=== PATIENT | female | born 1935 | race Caucasian/White ===

== ENCOUNTER 2017-09-29 21:50 | Inpatient (IN) | payer MEDICARE, OTHER ==
[2017-09-29 22:18] LABS: Basophils # (A) 0.1 k/uL (0-0.2); Basophils % (A) 1 %; Eosinophils # (A) 0.3 k/uL (0-0.7); Eosinophils % (A) 3 %; HGB 9.9 gm/dL (11.4-16.0); Lymphocytes # (A) 1.7 k/uL (1.0-4.8); Lymphocytes % (A) 19 %; MCH 28.7 pg (25.0-35.0); MCHC 33.1 g/dL (31.0-37.0); MCV 86.8 fL (80.0-100.0); Mean Platelet Volume 6.9; Monocytes # (A) 0.7 k/uL (0-1.0); Monocytes % (A) 7 %; Neutrophils # (A) 6.1 k/uL (1.3-7.7); Neutrophils % (A) 67 %; Platelet Count 359 k/uL (150-450); RBC 3.46 m/uL (3.80-5.40); RDW 12.9 % (11.5-15.5)
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
[2017-09-29 22:31] LABS: Albumin 4.1 g/dL (3.5-5.0); Calcium 9.2 mg/dL (8.4-10.2); Total Bilirubin 0.4 mg/dL (0.2-1.3); Total Protein 7.1 g/dL (6.3-8.2)
[2017-09-29 22:35] LABS: Partial Thromboplastin Time 24.7 sec (22.0-30.0)
[2017-09-29 22:38] LABS: D-Dimer 0.6 mg/L FEU (<0.60)
[2017-09-29 22:40] LABS: Creatine Kinase 34 U/L (30-135)
--- NOTE | 2017-09-29 22:44 | XR ---
EXAMINATION TYPE: XR chest 1V portable DATE OF EXAM: 09/29/2017 COMPARISON: 05/13/2015 HISTORY: Syncope TECHNIQUE: Single frontal view of the chest is obtained. FINDINGS: There is general coarsening of pulmonary interstitial markings. The pulmonary vascularity is difficult to evaluate because of interstitial lung disease. I do not suspect heart failure. There is slight blunting of the costophrenic angles and suboptimal inspiration. There are chest leads. Hear t is top normal in size. IMPRESSION: Pulmonary fibrosis. Slightly reduced lung volumes. No change compared to last exam.
[2017-09-29 22:51] LABS: Creatine Kinase MB 1.2 ng/mL (0.0-2.4); Troponin I <0.012 ng/mL (0.000-0.034)
--- NOTE | 2017-09-29 23:29 | CT ---
EXAMINATION TYPE: CT brain les ortiz DATE OF EXAM: 09/29/2017 COMPARISON: None HISTORY: syncope fall. CT DLP: head 1012.70 body 495 mGycm Automated exposure control for dose reduction was used. TECHNIQUE: CT scan of the head and cervical spine are performed without contrast. FINDINGS: There is cerebral cortical atrophy. There is no mass effect nor midline shift. There is n o sign of intracranial hemorrhage. The calvarium is intact. Cervical vertebra have fairly normal alignment. There is narrowing of C5-6 disc space with spurring o f the endplates. There is a few millimeter retrolisthesis of C5 in relation to C6. There is hypertrop hic multilevel cervical facet arthropathy. The posterior elements are intact. The skull base appears intact. IMPRESSION: Spondylotic changes at C5-6. No fracture seen. Cerebral atrophy and chronic small vessel ischemia. No acute intracranial abnormality.
[2017-09-29] MEDS ORDERED: SODIUM CHLORIDE 0.9% 500 ML IV STA (23:51)
[2017-09-29] MEDS ORDERED: SODIUM CHLORIDE 0.9% 1,000 ML IV STA (23:51)
[2017-09-29] MEDS ORDERED: ACETAMINOPHEN TAB 325 MG TAB PO PRN (23:52)
[2017-09-29] MEDS ORDERED: NALOXONE 0.4 MG/ML 1 ML VIAL IV PRN (23:52)
[2017-09-29] MEDS ORDERED: DOCUSATE 100 MG CAP PO PRN (23:54)
[2017-09-29] MEDS ORDERED: HYDROcodone/APAP 5-325MG 1 EACH TAB PO PRN (23:54)
[2017-09-30] MEDS ORDERED: HYDROcodone/APAP 7.5-325MG 1 EACH TAB PO ONE (00:47)
--- NOTE | 2017-09-30 01:17 | XR ---
EXAMINATION TYPE: XR lumbar spine 2 or 3V DATE OF EXAM: 09/30/2017 COMPARISON: NONE HISTORY: Back pain TECHNIQUE: 3 views FINDINGS: There is 7 mm anterior subluxation of L4 in relation L5. There is narrowing of disc spaces from L3 to S1. There is no compression fracture. There is gliosis at L3-4 disc with vacuum disc. Sacr oiliac joints show osteosclerosis. Abdominal aorta is atheromatous. IMPRESSION: Degenerative first-degree L4-5 spondylolisthesis. No compression fracture. Spondylotic ch anges.
[2017-09-30 04:39] LABS: Basophils % (A) 1 %; Eosinophils # (A) 0.2 k/uL (0-0.7); Eosinophils % (A) 3 %; HCT 29.1 % (34.0-46.0); HGB 9.6 gm/dL (11.4-16.0); Lymphocytes # (A) 1.8 k/uL (1.0-4.8); Lymphocytes % (A) 23 %; MCH 28.8 pg (25.0-35.0); MCHC 32.9 g/dL (31.0-37.0); MCV 87.3 fL (80.0-100.0); Mean Platelet Volume 6.6; Monocytes # (A) 0.6 k/uL (0-1.0); Monocytes % (A) 7 %; Neutrophils # (A) 5.2 k/uL (1.3-7.7); Neutrophils % (A) 65 %; Platelet Count 281 k/uL (150-450); RBC 3.33 m/uL (3.80-5.40)
[2017-09-30 04:54] LABS: Calcium 8.9 mg/dL (8.4-10.2); Potassium 4.5 mmol/L (3.5-5.1)
[2017-09-30 05:20] LABS: Troponin I 0.024 ng/mL (0.000-0.034)
[2017-09-30] MEDS ORDERED: LOSARTAN 50 MG TAB PO SCH (09:00)
[2017-09-30] MEDS: THYROID, PORK 30 MG TAB PO SCH (10:19)
[2017-09-30 11:19] LABS: Creatine Kinase MB 1.1 ng/mL (0.0-2.4); Troponin I 0.026 ng/mL (0.000-0.034)
[2017-09-30 12:35] LABS: Glucose,Whole Blood 117 mg/dL (75-99)
[2017-09-30] MEDS: amLODIPine 10 MG TAB PO SCH (13:13)
[2017-09-30] MEDS: SODIUM CHLORIDE 0.9% 1,000 ML IV SCH (13:13)
[2017-09-30] MEDS ORDERED: NON-FORMULARY DRUG (Cranberry Fruit Extract [Cranberry] 500 MG) PO SCH (13:45)
[2017-09-30] MEDS: metFORMIN 500 MG TAB PO SCH ×2 (17:20→20:51)
[2017-09-30] MEDS: ENOXAPARIN 40 MG/0.4 ML SYRINGE SQ SCH (17:20)
[2017-09-30] MEDS: hydrALAZINE HCL 25 MG TAB PO SCH ×3 (17:20→20:51)
[2017-09-30] MEDS: ASCORBIC ACID 500 MG TAB PO SCH ×2 (17:21→20:51)
[2017-09-30 17:23] LABS: Glucose,Whole Blood 136 mg/dL (75-99)
[2017-09-30] MEDS: INSULIN ASPART 100 UNIT/ML 1 ML 10 ML VIAL SQ SCH ×2 (17:44→21:38)
[2017-09-30 18:46] LABS: Appearance,Urine Turbid (Clear); Bacteria,Urine Many /hpf; Bilirubin,Urine Negative (Negative); Blood,Urine Small (Negative); Color,Urine Yellow; Glucose,Urine (UA) Negative (Negative); Ketones,Urine Negative (Negative); Leukocyte Esterase,Urine Large (Negative); Nitrite,Urine Negative (Negative); Protein,Urine 2+ (Negative); RBC,Urine 41 /hpf (0-5); Specific Gravity,Urine 1.011 (1.001-1.035); Urobilinogen,Urine <2.0 mg/dL (<2.0); WBC,Urine >182 /hpf (0-5)
[2017-09-30 19:00] VITALS: BMI 36.1
[2017-09-30] MEDS ORDERED: MAGNESIUM HYDROXIDE 2,400 MG/10 ML CUP PO PRN (20:15)
[2017-09-30] MEDS ORDERED: LACTULOSE 20 GM/30 ML CUP PO PRN (20:15)
[2017-09-30] MEDS ORDERED: CALCIUM CARBONATE 500 MG CHEWABLE PO PRN (20:15)
[2017-09-30] MEDS ORDERED: LORazepam 0.5 MG TAB PO PRN (20:15)
[2017-09-30] MEDS ORDERED: ONDANSETRON 4 MG/2 ML VIAL IVP PRN (20:15)
[2017-09-30] MEDS: cefTRIAXone IN SWFI 1,000 MG/10 ML SYRINGE IVP SCH (20:50)
[2017-09-30] MEDS ORDERED: LORATADINE 10 MG TAB PO SCH (21:00)
[2017-09-30 21:08] LABS: Glucose,Whole Blood 141 mg/dL (75-99)
[2017-09-30] MEDS: MELATONIN 5 MG TABLET PO SCH (21:38)
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
[2017-10-01] MEDS: SODIUM CHLORIDE 0.9% 1,000 ML IV SCH ×3 (02:21→17:27)
[2017-10-01 07:39] LABS: Glucose,Whole Blood 108 mg/dL (75-99)
[2017-10-01 09:09] LABS: Potassium 4.5 mmol/L (3.5-5.1)
[2017-10-01] MEDS: ENOXAPARIN 40 MG/0.4 ML SYRINGE SQ SCH (09:13)
[2017-10-01] MEDS: hydrALAZINE HCL 25 MG TAB PO SCH ×2 (09:13→16:20)
[2017-10-01] MEDS: THYROID, PORK 30 MG TAB PO SCH (09:13)
[2017-10-01] MEDS: ASCORBIC ACID 500 MG TAB PO SCH ×2 (09:13→23:00)
[2017-10-01] MEDS: INSULIN ASPART 100 UNIT/ML 1 ML 10 ML VIAL SQ SCH ×4 (09:14→23:00)
[2017-10-01] MEDS: PANTOPRAZOLE 40 MG TABLET PO SCH (09:15)
[2017-10-01] MEDS: cefTRIAXone IN SWFI 1,000 MG/10 ML SYRINGE IVP SCH (09:16)
[2017-10-01] MEDS: metFORMIN 500 MG TAB PO SCH (09:16)
--- NOTE | 2017-10-01 10:51 | US ---
EXAMINATION TYPE: US kidneys/renal and bladder DATE OF EXAM: 10/01/2017 COMPARISON: NONE CLINICAL HISTORY: 81-year-old female renal failure. Multiple sonographic images of the kidneys and bladder are obtained. FINDINGS: EXAM MEASUREMENTS: Right Kidney: 11.1 x 4.5 x 4.5 cm Left Kidney: 10.0 x 5.9 x 5.0 cm No hydronephrosis on either side. Right Kidney: Inferior pole obscured by bowel gas, lateral cyst measuring 2.0 x 1.6 x 1.6cm Left Kidney: Inferior pole obscured by bowel gas, multiple cysts noted larges measuring 1.8 x 1.8 x 2 .2cm. A second smaller cyst centrally measures 1.2 cm. Bladder: possible mural based mass vs dense debris posterior bladder measuring 4.2 x 3.0 x 1.1cm Bilateral Jets seen: no IMPRESSION: 1. No hydronephrosis. 2. Scattered renal cysts measuring up to 2.0 cm on the right and 2.2 cm on the left. 3. A 4.2 x 3.0 x 1.1 cm mural based mass versus dense debris posteriorly in the bladder. Correlate wi th urine cytology and direct visualization if indicated.
[2017-10-01 12:14] LABS: Glucose,Whole Blood 114 mg/dL (75-99)
[2017-10-01] MEDS: IOPAMIDOL-300 CONTRAST 30 ML VIAL (ORAL USE) PO PRN ×2 (16:19→17:14)
[2017-10-01] MEDS: amLODIPine 10 MG TAB PO SCH (16:20)
[2017-10-01 17:10] LABS: Glucose,Whole Blood 122 mg/dL (75-99)
--- NOTE | 2017-10-01 17:30 | P.PN ---
Subjective 78-year-old pleasant female came in with syncope appears to be secondary to hypervolemia, has positive orthostatic vitals, hyponatremia hyponatremia improved with IV fluids creatinine improved as well. Patient apparently has unintentional weight loss because of which Dr. Ceballos ordered CT abdomen pelvis and chest these are pending until her creatinine improves which may happen tomorrow after that patient probably will be discharged tomorrow patient is feeling well wanted to go home. Patient is on multiple antidepressant medications, MARK inhibitor was discontinued, I'm decreasing the dose of amlodipine discontinued and hydralazine as her blood pressure remains the low normal side with positive orthostatic vitals continue with IV fluids discontinue metformin as patient will get a CAT scans with contrast. PT and OT evaluated the patient. Constitutional: Denied any fatigue denied any fever. Cardio vascular: denied any chest pain, palpitations Gastrointestinal denied any nausea vomiting Pulmonary: Denied any shortness of breath cough Neurologic denied any new focal deficits Objective - Vital Signs Vital signs: Vital Signs Temp 97.5 F L 10/01/17 14:10 Pulse 56 L 10/01/17 14:10 Resp 16 10/01/17 15:55 BP 122/60 10/01/17 14:10 Pulse Ox 94 L 10/01/17 14:10 Intake & Output 09/30/17 10/01/17 10/01/17 18:59 06:59 18:59 Intake Total 240 400 600 Output Total 200 Balance 40 400 600 Weight 83.915 kg Intake: Intake, IV Titration 400 Amount Sodium Chloride 0.9% 1, 400 000 ml @ 100 mls/hr IV . Q10H [facility] Rx#:[id number] Oral 240 600 Output: Urine 200 Other: Voiding Method Toilet Toilet Incontinent Incontinent # Voids 3 2 3 # Bowel Movements 0 - Exam PHYSICAL EXAMINATION: GENERAL: The patient is alert and oriented x3, not in any acute distress. Well developed, well nourished. HEENT: Pupils are round and equally reacting to light. EOMI. No scleral icterus. No conjunctival pallor. Normocephalic, atraumatic. No pharyngeal erythema. No thyromegaly. CARDIOVASCULAR: S1 and S2 present. No murmurs, rubs, or gallops. PULMONARY: Chest is clear to auscultation, no wheezing or crackles. ABDOMEN: Soft, nontender, nondistended, normoactive bowel sounds. No palpable organomegaly. MUSCULOSKELETAL: No joint swelling or deformity. EXTREMITIES: No cyanosis, clubbing, or pedal edema. NEUROLOGICAL: Gross neurological examination did not reveal any focal deficits. SKIN: No rashes. - Labs CBC & Chem 7: 09/30/17 04:26 10/01/17 08:20 Labs: Abnormal Lab Results - Last 24 Hours (Table) 09/30/17 09/30/17 09/30/17 Range/Units 17:09 18:00 20:53 BUN (7-17) mg/dL Creatinine (0.52-1.04) mg/dL Glucose (74-99) mg/dL POC Glucose (mg/dL) 136 H 141 H (75-99) mg/dL Urine Appearance Turbid H (Clear) Urine Protein 2+ H (Negative) Urine Blood Small H (Negative) Ur Leukocyte Esterase Large H (Negative) Urine RBC 41 H (0-5) /hpf Urine WBC >182 H (0-5) /hpf Urine WBC Clumps Many H (None) /hpf Urine Bacteria Many H (None) /hpf 10/01/17 10/01/17 10/01/17 Range/Units 07:22 08:20 12:10 BUN 22 H (7-17) mg/dL Creatinine 1.23 H (0.52-1.04) mg/dL Glucose 112 H (74-99) mg/dL POC Glucose (mg/dL) 108 H 114 H (75-99) mg/dL Urine Appearance (Clear) Urine Protein (Negative) Urine Blood (Negative) Ur Leukocyte Esterase (Negative) Urine RBC (0-5) /hpf Urine WBC (0-5) /hpf Urine WBC Clumps (None) /hpf Urine Bacteria (None) /hpf 10/01/17 Range/Units 17:09 BUN (7-17) mg/dL Creatinine (0.52-1.04) mg/dL Glucose (74-99) mg/dL POC Glucose (mg/dL) 122 H (75-99) mg/dL Urine Appearance (Clear) Urine Protein (Negative) Urine Blood (Negative) Ur Leukocyte Esterase (Negative) Urine RBC (0-5) /hpf Urine WBC (0-5) /hpf Urine WBC Clumps (None) /hpf Urine Bacteria (None) /hpf Assessment and Plan Plan: -Syncope: Secondary to intravascular depletion telemetry did not show any significant abnormality. Patient is mildly sinus bradycardic atenolol was discontinued which may have contributed to her syncope as well as renal failure improved hyponatremia improved will obtain echocardiogram to complete the workup. -Acute renal failure: Prerenal azotemia with the possibility of nonoliguric acute purulent necrosis secondary to hypotension. Improving renal function at this time continue with IV fluids. MARK inhibitor was discontinued., Cut down on other antidepressants medications. -Unintentional weight loss further management as mentioned above -Type 2 diabetes mellitus because of her borderline kidney function and anticipated CAT scans tomorrow metformin will be discontinued patient will be on sliding scale insulin -Mild sinus bradycardia secondary to atenolol which was discontinued -Hypothyroidism current TSH is within normal limits continue with the home dose of levothyroxine -Urinary stress incontinence -Depression -Mild senile dementia -Possibility of urinary tract infection for which patient is on Rocephin awaiting urine cultures -Deconditioning secondary to age and OT evaluation as mentioned above I' m unsure whether patient lives at [facility] patient denies living at a at that place and patient appears to be independent with ADLs
--- NOTE | 2017-10-01 18:39 | CT ---
EXAMINATION TYPE: CT ChestAbdPelvis w con DATE OF EXAM: 10/01/2017 COMPARISON: None HISTORY: c/o nausea, decreased appetite with [address] DLP: 1564 mGycm Automated exposure control for dose reduction was used. CONTRAST: CT scan of the chest, abdomen and pelvis is performed with Oral Contrast and with IV Contrast, patien t injected with 80 mL of Isovue 300. FINDINGS: The heart is enlarged. There is no pericardial effusion. There is no pleural effusion. There is patch y interstitial density at the lung bases probably due to fibrosis. There is dilated biliary tree. The common bile duct measures 1.4 cm. There is cholecystectomy. Intrahepatic bile ducts are dilated. Spleen appears normal. There is some bulkiness of the body of the pancreas compared to the remainder of the pancreas. Pancreatic head appears normal. There is no adrenal mass. Kidneys show satisfactory contrast opacification. There are multiple bilate ral renal cortical cysts that measure up to 2 cm. There is no hydronephrosis. Ureters are not dilated . There is no retroperitoneal adenopathy. Abdominal aorta is atheromatous. Bladder distends smoothly. I see no intestinal wall thickening. There are no dilated loops. Uterus is anteverted with some calc ification consistent with small fibroids. There is no free fluid in the pelvis. There is a degenerati ve first-degree L4-5 spondylolisthesis. There is no compression fracture. IMPRESSION: Multiple renal cysts. No renal obstruction. Dilated biliary tree. No obstructing lesion identified. Possible 2 cm mass in the body of the pancreas. Follow-up is recommended. MRCP would be useful for fu rther evaluation to evaluate the bile ducts and the pancreas. Fibrotic changes and subsegmental atelectasis at the lung bases. Cardiomegaly. No evidence of a pulmo nary mass.
[2017-10-01 22:32] LABS: Glucose,Whole Blood 117 mg/dL (75-99)
[2017-10-01] MEDS: MELATONIN 5 MG TABLET PO SCH (23:01)
[2017-10-02] MEDS: SODIUM CHLORIDE 0.9% 1,000 ML IV SCH ×2 (05:55→12:52)
[2017-10-02 07:54] LABS: Glucose,Whole Blood 126 mg/dL (75-99)
[2017-10-02] MEDS: cefTRIAXone IN SWFI 1,000 MG/10 ML SYRINGE IVP SCH (08:23)
[2017-10-02] MEDS: INSULIN ASPART 100 UNIT/ML 1 ML 10 ML VIAL SQ SCH ×3 (08:24→17:03)
[2017-10-02] MEDS: PANTOPRAZOLE 40 MG TABLET PO SCH (08:58)
[2017-10-02] MEDS ORDERED: ENOXAPARIN 30 MG/0.3 ML SYRINGE SQ SCH (09:00)
[2017-10-02] MEDS: THYROID, PORK 30 MG TAB PO SCH (09:03)
[2017-10-02] MEDS: ASCORBIC ACID 500 MG TAB PO SCH (09:44)
[2017-10-02 09:50] LABS: Calcium 9.1 mg/dL (8.4-10.2); Potassium 4.7 mmol/L (3.5-5.1)
--- NOTE | 2017-10-02 10:47 | ECHOF ---
Referral Reason:syncope MEASUREMENTS -------- HEIGHT: 152.4 cm WEIGHT: 83.9 kg BP: 126/60 RVIDd: 3.0 cm (< 3.3) IVSd: 1.2 cm (0.6 - 1.1) LVIDd: 4.9 cm (3.9 - 5.3) LVPWd: 1.3 cm (0.6 - 1.1) IVSs: 1.6 cm LVIDs: 3.5 cm LVPWs: 1.7 cm LA Diam: 4.6 cm (2.7 - 3.8) LAESV Index (A-L): 40.72 ml/m Ao Diam: 2.9 cm (2.0 - 3.7) AV Cusp: 1.4 cm (1.5 - 2.6) LA Diam: 5.0 cm (2.7 - 3.8) MV EXCURSION: 15.488 mm (> 18.000) MV EF SLOPE: 73 mm/s (70 - 150) EPSS: 0.5 cm MV E Johnnie: 1.27 m/s MV DecT: 204 ms MV A Johnnie: 1.06 m/s MV E/A Ratio: 1.21 AV maxP.38 mmHg AV meanP.71 mmHg RAP: 5.00 mmHg RVSP: 51.92 mmHg FINDINGS -------- Sinus rhythm. This was a technically good study. The left ventricular size is normal. There is mild concentric left ventricular hypertrophy. Overa ll left ventricular systolic function is low-normal with, an EF between 50 - 55 %. The right ventricle is normal in size. The left atrium is moderately dilated. LA is severely dilated >40 ml/m2 The right atrial size is normal. There is moderate aortic stenosis present. Peak/mean gradient across the Aortic Valve is 48.38mmHg / 22.71mmHg. Mild mitral annular calcification present. Mild mitral regurgitation is present. Mild tricuspid regurgitation present. There is moderate pulmonary hypertension. The right ventric ular systolic pressure, as measured by Doppler, is 51.92mmHg. There is no pulmonic regurgitation present. The aortic root size is normal. There is no pericardial effusion. CONCLUSIONS -------- 1. The left ventricular size is normal. 2. There is mild concentric left ventricular hypertrophy. 3. Overall left ventricular systolic function is low-normal with, an EF between 50 - 55 %. 4. The right ventricle is normal in size. 5. The left atrium is moderately dilated. 6. LA is severely dilated >40 ml/m2 7. The right atrial size is normal. 8. There is moderate aortic stenosis present. 9. Peak/mean gradient across the Aortic Valve is 48.38mmHg / 22.71mmHg. 10. Mild mitral annular calcification present. 11. Mild mitral regurgitation is present. 12. Mild tricuspid regurgitation present. 13. There is moderate pulmonary hypertension. 14. The right ventricular systolic pressure, as measured by Doppler, is 51.92mmHg. 15. There is no pulmonic regurgitation present. 16. The aortic root size is normal. 17. There is no pericardial effusion. GASOLINE SERVICE ATTENDANT: Janee Malik RDCS
[2017-10-02 12:27] LABS: Glucose,Whole Blood 156 mg/dL (75-99)
[2017-10-02 16:19] VITALS: BP 143/58; PULSE 61; TEMP 97.2
[2017-10-02 16:25] VITALS: RESP 16
[2017-10-02 16:56] LABS: Glucose,Whole Blood 124 mg/dL (75-99)
[2017-10-02] MEDS ORDERED: amLODIPine 5 MG TAB PO SCH (17:00)
--- NOTE | 2017-10-02 17:15 | MR ---
MRCP and MR pancreas HISTORY: pancreatic mass, abnormal CT Multiplanar multisequence and postcontrast imaging obtained through the pancreas. Multiplanar multise quence imaging through the biliary system, three-dimensional reconstructions performed on an [employer] workstation. Correlation CT chest abdomen pelvis dated 10/01/2017 Dilated intra and extrahepatic biliary ducts noted to the level of the pancreatic head. Pancreatic du ct is also dilated. Multiple cystic foci are present along the pancreas especially the body and tail and also the head which may be communicating with a dilated pancreatic duct. No filling defect eviden t to suggest retained stone. Patient is post cholecystectomy. There is some soft tissue present at the level of the pancreatic head some possible local mass effect on the duodenum as noted on CT. The level of the ampulla appears somewhat prominently seen better on the CT. Calcification at the level of the head of pancreas seen on CT not seen on MRI. Motion is present on the exam especially on the postcontrast images. Cystic foci associated with the kidneys. The adrenal glands, spleen are within normal limits. No retr operitoneal adenopathy evident. Aorta shows normal caliber. Possible renal vein collar present. IMPRESSION: Ampullary region appears somewhat prominent, there is suggestion of prominent soft tissue as described at the level of pancreatic head. Findings suggest biliary obstruction. Appearance of th e pancreas could be indicative of intraductal papillary mucinous neoplasm possibly chronic pancreatit is. Limitations as described. Additional findings above.
--- NOTE | 2017-10-03 19:10 | P.DS ---
Providers Date of admission: 09/29/17 23:56 Expected date of discharge: 10/03/17 Attending physician: Isidro Pizarro Primary care physician: Bharath [facility] Hospital Course: Final Diagnoses: -Syncope: Secondary to intravascular depletion telemetry did not show any significant abnormality. Patient is mildly sinus bradycardic atenolol was discontinued which may have contributed to her syncope as well as renal failure improved hyponatremia improved. Echo reported low normal LV function EF 50-55% , severely dilated LA ,moderate aortic stenosis, moderate pulmonary hypertension -Acute renal failure: Prerenal azotemia with the possibility of nonoliguric acute purulent necrosis secondary to hypotension. Improving. MARK inhibitor was discontinued., Cut down on other antidepressants medications. -Unintentional weight loss -Type 2 diabetes mellitus -Mild sinus bradycardia secondary to atenolol, discontinued -Hypothyroidism current TSH is within normal limits -Urinary stress incontinence -Depression -Mild senile dementia -Possible acute urinary tract infection -Deconditioning secondary to age . -Possible bladder mass, further workup outpatient to be arranged by PCP -Mass seen on MRI of Pancreas could not be ruled out as malignancy. Patient needs to follow up as an outpatient with Dr. Hector Clark in one week for a biopsy. Hospital course:78-year-old pleasant female came in with syncope appears to be secondary to hypervolemia, has positive orthostatic vitals, hyponatremia hyponatremia improved with IV fluids creatinine improved as well. Patient apparently has unintentional weight loss because of which Dr. Ceballos ordered CT abdomen pelvis and chest these are pending until her creatinine improves which may happen tomorrow after that patient probably will be discharged tomorrow patient is feeling well wanted to go home. Patient is on multiple antidepressant medications, MARK inhibitor was discontinued, I'm decreasing the dose of amlodipine discontinued and hydralazine as her blood pressure remains the low normal side with positive orthostatic vitals continue with IV fluids discontinue metformin as patient will get a CAT scans with contrast. PT and OT evaluated the patient. Constitutional: Denied any fatigue denied any fever. Cardio vascular: denied any chest pain, palpitations Gastrointestinal denied any nausea vomiting Pulmonary: Denied any shortness of breath cough Neurologic denied any new focal deficits CT of abdomen and pelvis reporting multiple renal cysts, no renal obstruction, dilated biliary tree with no obstructing lesion, possible 2 cm mass in the body of the pancreas, no pulmonary mass. Renal ultrasound reporting no hydronephrosis, 4.2 x 3.0 x 1.1 mass versus dense debris in the bladder. MRCP and MR pancreas reporting mass of pancreatic head, possible biliary obstruction , possible intraductal papillary neoplasm, possibly chronic pancreatitis. Dilated pancreatic duct with multiple cystic foci along the pancreas body, head & tail. Possible local mass effect on the duodenum Patient is being discharged home in a stable condition with guarded prognosis. Patient will require EUS,BX, follow-up with Dr. Hector Clark as well as outpatient urology. EXAMINATION: GENERAL: The patient is alert and oriented x3, not in any acute distress. CARDIOVASCULAR: S1 and S2 present. No murmurs, rubs, or gallops. PULMONARY: Chest is clear to auscultation, no wheezing or crackles. ABDOMEN: Soft, nontender, nondistended, normoactive bowel sounds. No palpable organomegaly. NEUROLOGICAL: Gross neurological examination did not reveal any focal deficits. The impression and plan of care has been dictated as directed. : I performed a history and examination of this patient, discussed the same with the dictator. I agree with the dictator's note ,documented as a scribe. Any additional findings or plans will be noted. Time taken: 35 minutes Patient Condition at Discharge: Stable Plan - Discharge Summary New Discharge Prescriptions: New amLODIPine [Norvasc] 5 mg PO DAILY@1700 #30 tab Cefuroxime Axetil [Ceftin] 500 mg PO BID #8 tab Continue Loratadine [Claritin] 10 mg PO HS [place]-3 Acid Ethyl Esters [Lovaza] 2 gm PO BID Cranberry Fruit Extract [Cranberry] 500 mg PO BID Acai Post Extract [Acai] 500 mg PO DAILY Diabetic Nerve Rejuvination 1 tab PO DAILY Ascorbic Acid [Vitamin C] 1,000 mg PO BID Melatonin 5 mg PO HS Blood Sugar Advantage 1 tab PO DAILY Docusate [Colace] 100 mg PO DAILY PRN PRN Reason: Constipation hydrALAZINE HCL [Apresoline] 25 mg PO TID V-C Forte 1 cap PO DAILY Omeprazole [PriLOSEC] 40 mg PO DAILY Stock Shipper Thyroid 90 mg PO DAILY Discontinued Atenolol 25 mg PO DAILY Losartan Potassium [Cozaar] 100 mg PO DAILY Discharge Medication List Acai Post Extract [Acai] 500 mg PO DAILY 05/11/15 [History] Ascorbic Acid [Vitamin C] 1,000 mg PO BID 05/11/15 [History] Blood Sugar Advantage 1 tab PO DAILY 05/11/15 [History] Cranberry Fruit Extract [Cranberry] 500 mg PO BID 05/11/15 [History] Diabetic Nerve Rejuvination 1 tab PO DAILY 05/11/15 [History] Loratadine [Claritin] 10 mg PO HS 05/11/15 [History] Melatonin 5 mg PO HS 05/11/15 [History] [place]-3 Acid Ethyl Esters [Lovaza] 2 gm PO BID 05/11/15 [History] Docusate [Colace] 100 mg PO DAILY PRN 06/16/15 [History] Stock Shipper Thyroid 90 mg PO DAILY 09/30/17 [History] Omeprazole [PriLOSEC] 40 mg PO DAILY 09/30/17 [History] V-C Forte 1 cap PO DAILY 09/30/17 [History] hydrALAZINE HCL [Apresoline] 25 mg PO TID 09/30/17 [History] Cefuroxime Axetil [Ceftin] 500 mg PO BID #8 tab 10/02/17 [Rx] amLODIPine [Norvasc] 5 mg PO DAILY@1700 #30 tab 10/02/17 [Rx] Follow up Appointment(s)/Referral(s): Mylene Clark MD [STAFF PHYSICIAN] - 1 Week Bharath Manzo MD [Primary Care Provider] - 3 Days Azeem Calderon MD [STAFF PHYSICIAN] - 1 Week Patient Instructions/Handouts: Urinary Tract Infection in Women (DC), Syncope ( DC), Bradycardia (DC) Activity/Diet/Wound Care/Special Instructions: Mass seen on MRI of Pancreas could not be ruled out as malignancy. Patient needs to follow up as an outpatient with Dr. Hector Clark in one week for a biopsy. Please call for an Appointment Diet: Consistent carb Stop Atenolol Activity: Limited until follow up Discharge Disposition: HOME SELF-CARE
== END 2017-10-02 19:23 | disposition home or self-care (01) | DRG 683 ==
LOC: EC 21:50 → 6SEL 23:56 → 4MS4W 09-30 10:25
PROVIDERS: ADMIT Hospitalist; ATTEND Hospitalist
DX: N17.9 Acute kidney failure, unspecified (principal); E87.1 Hypo-osmolality and hyponatremia; E03.9 Hypothyroidism, unspecified; E11.42 Type 2 diabetes mellitus with diabetic polyneuropathy; F32.9 Major depressive disorder, single episode, unspecified; I10 Essential (primary) hypertension; J42 Unspecified chronic bronchitis; N30.90 Cystitis, unspecified without hematuria; N39.3 Stress incontinence (female) (male); W19.XXXA Unspecified fall, initial encounter; Z79.84 Long term (current) use of oral hypoglycemic drugs; Z79.899 Other long term (current) drug therapy; Z82.49 Family history of ischemic heart disease and other diseases of the circulatory system; Z87.891 Personal history of nicotine dependence; Z88.2 Allergy status to sulfonamides; Z90.49 Acquired absence of other specified parts of digestive tract; E66.9 Obesity, unspecified; Z68.36 Body mass index [BMI] 36.0-36.9, adult; R00.1 Bradycardia, unspecified; T44.7X5A Adverse effect of beta-adrenoreceptor antagonists, initial encounter; Z79.890 Hormone replacement therapy; F03.90 Unspecified dementia, unspecified severity, without behavioral disturbance, psychotic disturbance, mood disturbance, and anxiety; R63.4 Abnormal weight loss
CPT/HCPCS: 36415; 70450; 71045; 71260; 72100; 72125; 74177; 74183; 76770; 80048; 80053; 81001; 82550; 82553; 83036; 83930; 84443; 84484; 85025; 85379; 85610; 85730; 86301; 93005; 93306; 96360; 96361; 99285

== ENCOUNTER 2017-10-04 22:34 | Emergency (ER) | payer MEDICARE, OTHER ==
[2017-10-05 05:23] LABS: Partial Thromboplastin Time 21.5 sec (22.0-30.0); Prothrombin Time 9.8 sec (9.0-12.0)
[2017-10-05 05:24] LABS: Basophils # (A) 0.1 k/uL (0-0.2); Basophils % (A) 1 %; Eosinophils # (A) 0.3 k/uL (0-0.7); Eosinophils % (A) 4 %; HCT 29.7 % (34.0-46.0); HGB 9.6 gm/dL (11.4-16.0); Lymphocytes # (A) 1.6 k/uL (1.0-4.8); Lymphocytes % (A) 17 %; MCH 28.7 pg (25.0-35.0); MCHC 32.4 g/dL (31.0-37.0); MCV 88.5 fL (80.0-100.0); Mean Platelet Volume 7.5; Monocytes # (A) 0.6 k/uL (0-1.0); Monocytes % (A) 6 %; Neutrophils # (A) 6.6 k/uL (1.3-7.7); Neutrophils % (A) 71 %; Platelet Count 342 k/uL (150-450); RBC 3.35 m/uL (3.80-5.40); RDW 13.2 % (11.5-15.5); WBC 9.3 k/uL (3.8-10.6)
[2017-10-05 05:58] LABS: Troponin I 0.029 ng/mL (0.000-0.034)
--- NOTE | 2017-10-05 11:12 | XR ---
EXAMINATION TYPE: XR chest 2V DATE OF EXAM: 10/05/2017 COMPARISON: NONE HISTORY: Shortness of breath TECHNIQUE: Frontal and lateral views of the chest are obtained. FINDINGS: Scattered senescent parenchymal changes noted. Hyperinflation compatible with COPD. No evidence for infiltrate. No evidence for atelectasis. Heart size is stable. Mild pulmonary venous congestion without overt failure. Mediastinal structures are stable and grossly unremarkable. No evidence for hilar prominence. Degenerative changes dorsal spine. IMPRESSION: 1. No evidence for acute pulmonary disease.
== END 2017-10-05 03:54 | disposition home or self-care (01) ==
LOC: EC 22:34
DX: R07.9 Chest pain, unspecified (principal); R55 Syncope and collapse; E03.9 Hypothyroidism, unspecified; E11.9 Type 2 diabetes mellitus without complications; I10 Essential (primary) hypertension; D64.9 Anemia, unspecified; Z87.891 Personal history of nicotine dependence; Z79.899 Other long term (current) drug therapy; Z88.2 Allergy status to sulfonamides
CPT/HCPCS: 36415; 71046; 82550; 82553; 83735; 84484; 85025; 85610; 85730; 99284

== ENCOUNTER 2017-10-06 21:02 | Inpatient (IN) | payer MEDICARE, OTHER ==
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
[2017-10-06 21:42] LABS: Basophils % (A) 0 %; Eosinophils # (A) 0.3 k/uL (0-0.7); Eosinophils % (A) 3 %; HCT 24.8 % (34.0-46.0); HGB 8.2 gm/dL (11.4-16.0); Lymphocytes # (A) 1.4 k/uL (1.0-4.8); Lymphocytes % (A) 15 %; MCH 28.9 pg (25.0-35.0); MCHC 32.8 g/dL (31.0-37.0); MCV 87.9 fL (80.0-100.0); Mean Platelet Volume 7.4; Monocytes # (A) 0.7 k/uL (0-1.0); Monocytes % (A) 7 %; Neutrophils # (A) 6.8 k/uL (1.3-7.7); Neutrophils % (A) 72 %; Platelet Count 337 k/uL (150-450); RBC 2.82 m/uL (3.80-5.40); RDW 13.2 % (11.5-15.5); WBC 9.5 k/uL (3.8-10.6)
[2017-10-06 21:50] LABS: Albumin 3.5 g/dL (3.5-5.0); Calcium 8.7 mg/dL (8.4-10.2); INR 1.1 (<1.2); Partial Thromboplastin Time 25.7 sec (22.0-30.0); Potassium 4.9 mmol/L (3.5-5.1); Prothrombin Time 10.3 sec (9.0-12.0); Total Bilirubin 0.2 mg/dL (0.2-1.3); Total Protein 6.3 g/dL (6.3-8.2)
[2017-10-06 22:02] LABS: Appearance,Urine Cloudy (Clear); Bilirubin,Urine Negative (Negative); Blood,Urine Trace (Negative); Color,Urine Yellow; Glucose,Urine (UA) Negative (Negative); Ketones,Urine Negative (Negative); Leukocyte Esterase,Urine Large (Negative); Mucus,Urine Rare /hpf; Nitrite,Urine Negative (Negative); Protein,Urine 2+ (Negative); RBC,Urine 3 /hpf (0-5); Specific Gravity,Urine 1.006 (1.001-1.035); Urobilinogen,Urine <2.0 mg/dL (<2.0); WBC,Urine 87 /hpf (0-5)
--- NOTE | 2017-10-06 22:08 | XR ---
EXAMINATION TYPE: XR chest 2V DATE OF EXAM: 10/06/2017 COMPARISON: 10/04/2017 HISTORY: Hypertension cough TECHNIQUE: Frontal and lateral views of the chest are obtained. FINDINGS: There is coarse pulmonary interstitial density. Pulmonary vascularity is difficult to eval uate because of the lung disease. Thoracic aorta is atheromatous. There are chest leads. There is no definite pleural effusion. Bony thorax is intact. IMPRESSION: Pulmonary interstitial fibrosis. Inspiration is decreased compared to recent exam. No ob vious heart failure.
[2017-10-06 22:15] LABS: Troponin I 0.032 ng/mL (0.000-0.034)
[2017-10-06] MEDS ORDERED: NALOXONE 0.4 MG/ML 1 ML VIAL IV PRN (23:41)
[2017-10-07] MEDS: ACETAMINOPHEN TAB 325 MG TAB PO PRN ×2 (01:24→18:45)
[2017-10-07] MEDS: MELATONIN 5 MG TABLET PO SCH ×2 (02:11→20:59)
[2017-10-07 07:40] LABS: Glucose,Whole Blood 122 mg/dL (75-99)
[2017-10-07 07:42] LABS: Basophils % (A) 0 %; Eosinophils # (A) 0.4 k/uL (0-0.7); Eosinophils % (A) 5 %; HCT 25.4 % (34.0-46.0); HGB 8.1 gm/dL (11.4-16.0); Lymphocytes # (A) 1.5 k/uL (1.0-4.8); Lymphocytes % (A) 18 %; MCH 28.2 pg (25.0-35.0); MCHC 31.7 g/dL (31.0-37.0); Mean Platelet Volume 7.3; Monocytes # (A) 0.6 k/uL (0-1.0); Monocytes % (A) 8 %; Neutrophils # (A) 5.4 k/uL (1.3-7.7); Neutrophils % (A) 67 %; Platelet Count 337 k/uL (150-450); RBC 2.86 m/uL (3.80-5.40); RDW 13.2 % (11.5-15.5); WBC 8.1 k/uL (3.8-10.6)
[2017-10-07 08:03] LABS: Calcium 8.5 mg/dL (8.4-10.2); Potassium 4.6 mmol/L (3.5-5.1)
[2017-10-07] MEDS: hydrALAZINE HCL 25 MG TAB PO SCH ×3 (10:06→20:59)
[2017-10-07] MEDS: THYROID, PORK 30 MG TAB PO SCH (10:06)
[2017-10-07] MEDS: PANTOPRAZOLE 40 MG TABLET PO SCH (10:06)
[2017-10-07 11:55] LABS: Glucose,Whole Blood 165 mg/dL (75-99)
[2017-10-07] MEDS ORDERED: SODIUM CHLORIDE 0.9% 1,000 ML IV SCH ×3 (15:00→17:30)
--- NOTE | 2017-10-07 15:10 | CONS ---
CONSULTATION Mrs. Perez is an 81-year-old female who is seen with her son who presented with a syncopal episode. The patient was in the hospital recently with urinary tract infection and a syncopal episode. At that time, she had an echocardiogram that showed revealing a preserved ventricular size and systolic function. She was diagnosed with urine tract infection. Today she felt quite dizzy and presyncopal, was talking to the visiting physician on the phone when she felt almost as she was passing-out that lasted very briefly. After admission to the hospital on the monitor she had sinus mechanism with multiple long pauses. The patient denies any other cardiac history. She has occasional abdominal discomfort. She has occasional palpitation. She has some peripheral edema. No clear PND nor orthopnea. Her activity level is limited. She has no prior documented history of bradycardia or arrhythmia. Her coronary risk factors are remarkable for hypertension. She is nonsmoker. No hyperlipidemia. MEDICATION: Her medications include hydralazine 25 mg 3 times a day, amlodipine 5 mg daily, omeprazole, , cranberry. REVIEW OF SYSTEMS: RESPIRATORY SYSTEM: She has some cough. No recent wheezing. GI SYSTEM: No recent GI bleeding. No peptic ulcer disease. SYSTEM: She has urinary tract infection. She is incontinent. NERVOUS SYSTEM: No stroke or seizure. PHYSICAL EXAMINATION: She is an 81-year-old female, alert, in no apparent distress. Blood pressure 131/60 with a heart rate in the 60s. HEAD: Normocephalic. EYES: Sclerae anicteric. NECK: Good upstroke. No bruit. No jugular venous distention. LUNGS: Clear to auscultation. HEART: Regular rate and rhythm. S1, S2. No S3 with systolic murmur. No diastolic murmur. No rub. ABDOMEN: Soft, nontender. EXTREMITIES: No edema. LAB DATA: BUN and creatinine of 23 and 1.83. Her hemoglobin is 8.1 and she was running, the high she had was 10.7 and that was in June of 2015. Her potassium is 4.6. Her troponin 0.032. Her EKG revealed a sinus mechanism, normal axis, first-degree AV block, no acute changes. IMPRESSION: 1. Syncopal episode related to sinus pauses, symptomatic. 2. Hypertension. 3. Urinary tract infection. 4. Mild to moderate aortic stenosis by echocardiography with preserved systolic function. 5. Anemia of unclear etiology. 6. Chronic kidney disease noted during previous admission. RECOMMENDATION: From the cardiac standpoint I would recommend to check her thyroid function test. I recommend to proceed with a permanent pacemaker implantation. The rationale behind the procedure as well as the risks were discussed with the patient and her son. The procedure will be tentatively performed tomorrow. We will repeat her CBC to make sure there are no changes and depending on her progress further recommendation will be made. At this time, I would not put a temporary pacemaker since she is asymptomatic unless there is a change in her status. MMODL / IJN: [id number] /
[2017-10-07] MEDS ORDERED: amLODIPine 5 MG TAB PO SCH (17:00)
[2017-10-07 17:18] LABS: Glucose,Whole Blood 128 mg/dL (75-99)
[2017-10-07] MEDS: SODIUM CHLORIDE 0.9% 1,000 ML IV SCH ×2 (17:24→18:00)
[2017-10-07] MEDS: cefTRIAXone IN SWFI 1,000 MG/10 ML SYRINGE IVP SCH (17:30)
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
[2017-10-07] MEDS: LORATADINE 10 MG TAB PO SCH (20:59)
[2017-10-07] MEDS ORDERED: HEPARIN SODIUM,PORCINE 5,000 UNIT/ML 1 ML VIAL SQ SCH (21:00)
[2017-10-07 21:37] LABS: T4, Free (Free Thyroxine) 1.01 ng/dL (0.78-2.19)
[2017-10-07] MEDS ORDERED: DOPamine DRIP 800 MG in DEXTROSE/WATER 1 500ML.BAG IV STA (23:28)
[2017-10-07 23:46] LABS: Glucose,Whole Blood 149 mg/dL (75-99)
[2017-10-08] MEDS: SODIUM CHLORIDE 0.9% 1,000 ML IV SCH (00:19)
[2017-10-08] MEDS ORDERED: NITROGLYCERIN SL TABS 0.4 MG TAB SUBLINGUAL ONE (00:26)
[2017-10-08] MEDS ORDERED: HYDROmorphone 1 MG/ML 1 ML SYRINGE IVP PRN (00:29)
[2017-10-08] MEDS: HEPARIN SOD,PORK IN 0.45% NACL 25,000 UNIT in 0.45% NACL 1 500ML.BAG IV SCH (02:00)
[2017-10-08] MEDS ORDERED: 0.45% NACL 1 500ML.BAG with HEPARIN SOD,PORK IN 0.45% NACL 25,000 UNIT IV SCH (02:00)
[2017-10-08 05:09] LABS: Calcium 8.5 mg/dL (8.4-10.2)
[2017-10-08] MEDS ORDERED: HEPARIN SODIUM,PORCINE 5,000 UNIT/ML 1 ML VIAL IV PRN (06:04)
[2017-10-08 06:18] LABS: Glucose,Whole Blood 164 mg/dL (75-99)
[2017-10-08 07:11] LABS: Basophils % (A) 0 %; Eosinophils # (A) 0.1 k/uL (0-0.7); Eosinophils % (A) 1 %; HGB 8.5 gm/dL (11.4-16.0); Lymphocytes # (A) 1.1 k/uL (1.0-4.8); Lymphocytes % (A) 11 %; MCH 28.2 pg (25.0-35.0); MCHC 31.4 g/dL (31.0-37.0); Mean Platelet Volume 9.8; Monocytes # (A) 0.7 k/uL (0-1.0); Monocytes % (A) 7 %; Neutrophils # (A) 7.9 k/uL (1.3-7.7); Neutrophils % (A) 79 %; Platelet Count 349 k/uL (150-450); RDW 13.3 % (11.5-15.5)
[2017-10-08] MEDS ORDERED: ATROPINE SULFATE 0.1 MG/ML 10ML SYRINGE IV STA (07:46)
--- NOTE | 2017-10-08 07:59 | PN ---
PROGRESS NOTE Mrs. Perez is an 81-year-old female with a history of hypertension who presented with syncopal episode, was found to have long pauses. She was transferred to the ICU yesterday because of the recurrent pauses that were symptomatic. During the night, she had episode consistent with sick sinus syndrome with episode of atrial fibrillation, rapid ventricular response as well as episode of bradycardia and junctional rhythm. She has been complaining of right-sided chest discomfort respirophasic. She is mildly dyspneic. Her blood pressure has been borderline at times. She continues to be at this time on IV heparin, ceftriaxone. PHYSICAL EXAMINATION: Blood pressure running in the 80s to 100 with a heart rate in the 40s. LUNGS: Clear to auscultation anteriorly. Heart irregularly irregular S1, S2. No S3 with a systolic murmur. ABDOMEN: Soft, nontender. Extremities no significant edema. LAB DATA: BUN and creatinine 24 and 1.7, potassium 5.0. Hemoglobin of 8.5, [place] [address]. IMPRESSION: 1. Syncope with sick sinus syndrome and paroxysmal atrial fibrillation. 2. Anemia. 3. Renal failure. 4. Chronic kidney disease. 5. History of hypertension. RECOMMENDATION: We will proceed with permanent pacemaker implantation today and depending on her progress, further recommendations will be made. In the meantime, we will continue on the IV dopamine pending the placement of her device. MMODL / IJN: [id number] /
[2017-10-08] MEDS ORDERED: ONDANSETRON 4 MG/2 ML VIAL IVP PRN (08:09)
[2017-10-08] MEDS ORDERED: ONDANSETRON 4 MG/2 ML VIAL ONE (08:09)
[2017-10-08] MEDS: hydrALAZINE HCL 25 MG TAB PO SCH ×3 (08:23→21:03)
[2017-10-08] MEDS: ACETAMINOPHEN TAB 325 MG TAB PO PRN (09:46)
[2017-10-08] MEDS: PANTOPRAZOLE 40 MG TABLET PO SCH (09:52)
[2017-10-08] MEDS: THYROID, PORK 30 MG TAB PO SCH (09:52)
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
[2017-10-08] MEDS ORDERED: ceFAZolin 1,000 MG in SODIUM CHLORIDE 0.9% IRRIGATIO 250 ML IRRIGATION ONE (10:22)
[2017-10-08] MEDS ORDERED: ceFAZolin IN SWFI 2 GM/20 ML SYRINGE IVP ONE (10:22)
[2017-10-08] MEDS ORDERED: SODIUM CHLORIDE 0.9% 1,000 ML IV SCH ×2 (10:30)
[2017-10-08 10:59] LABS: Folate, Serum 23.9 ng/mL; Iron Saturation 7.14 (12.00-45.00)
[2017-10-08 11:44] LABS: Glucose,Whole Blood 187 mg/dL (75-99)
[2017-10-08] MEDS ORDERED: IOPAMIDOL-250 50ML BTL IV ONE (12:40)
[2017-10-08] MEDS ORDERED: IV FLUID CONTINUATION 1,000 ML IV ONE (12:45)
[2017-10-08] MEDS: fentaNYL (PF) 50 MCG/ML 2 ML AMP IV ONE ×2 (12:50→13:30)
[2017-10-08] MEDS ORDERED: LIDOCAINE 1% (PF) 10MG/ML VIAL SQ ONE (12:54)
[2017-10-08] MEDS ORDERED: HYDROcodone/APAP 5-325MG 1 EACH TAB PO PRN (13:40)
[2017-10-08 17:10] LABS: HCT 25.5 % (34.0-46.0); Hypochromasia Slight; MCH 28.9 pg (25.0-35.0); MCHC 31.4 g/dL (31.0-37.0); MCV 92.2 fL (80.0-100.0); Mean Platelet Volume 7.2; Platelet Count 361 k/uL (150-450); RBC 2.77 m/uL (3.80-5.40); RDW 13.2 % (11.5-15.5); WBC 8.8 k/uL (3.8-10.6)
[2017-10-08 17:18] LABS: Albumin 3.2 g/dL (3.5-5.0); Calcium 8.3 mg/dL (8.4-10.2); Magnesium 2.2 mg/dL (1.6-2.3); Total Bilirubin 0.2 mg/dL (0.2-1.3); Total Protein 5.8 g/dL (6.3-8.2)
[2017-10-08 17:34] LABS: Glucose,Whole Blood 143 mg/dL (75-99)
[2017-10-08] MEDS: INSULIN ASPART 100 UNIT/ML 1 ML 10 ML VIAL SQ SCH ×2 (17:53→21:08)
[2017-10-08] MEDS: ceFAZolin IN SWFI 2 GM/20 ML SYRINGE IVP SCH (17:54)
[2017-10-08] MEDS: cefTRIAXone IN SWFI 1,000 MG/10 ML SYRINGE IVP SCH (17:54)
[2017-10-08 20:56] LABS: Hemoglobin A1C 6.1 % (4.0-6.0)
[2017-10-08] MEDS: LORATADINE 10 MG TAB PO SCH (21:02)
[2017-10-08] MEDS: MELATONIN 5 MG TABLET PO SCH (21:02)
[2017-10-08 21:07] LABS: Glucose,Whole Blood 168 mg/dL (75-99)
--- NOTE | 2017-10-08 22:17 | P.PN ---
Subjective This is a pleasant 81 years old female with past medical history of diabetes mellitus, hypertension, thyroid disorder, vertigo, chronic bronchitis, urine incontinence, peripheral neuropathy, who presents because of syncope, patient states she blacked out twice 1 last week and one yesterday. Patient also complaining of from dizziness which is nonspecific comes and goes. No associated chest pain or nausea vomiting. Patient states she has infection in her urine and she is complaining of from leg cramps. On admission her creatinine is up at 1.8, compared to baseline of 1.1-1.2, patient looks dehydrated. 10/08/2017 pt was transferred to the ICU over night for sever bradycardia , she was started on dopamine drip. as per stock analyst pt has symptomatic pauses , pt mostly is with sick sinus syndrome , pt status post pacemaker placement on , pt was lying in bed and feels better. she remains on iv fluids and her cr is trending down to 1.6 , pt still has anemia , anemia work up is still on process , pt is on ceftiaxone for her urinary tract infection , and yesterday we gave her 2 gram as it is anticipated to have surgical intervention with pacemaker which iwas urgent/emergent. pt vitals are more stable currently and pt might be considered to be transfered to general medical floor REVIEW OF SYSTEMS: CONSTITUTIONAL: No fever, no malaise, no fatigue. HEENT: No recent visual problems or hearing problems. Denied any sore throat. CARDIOVASCULAR: No orthopnea, PND, no palpitations, no syncope. PULMONARY: No shortness of breath, no cough, no hemoptysis. GASTROINTESTINAL: No diarrhea, no nausea, no vomiting, no abdominal pain. Normoactive bowel sounds. NEUROLOGICAL: No headaches, no weakness, no numbness. HEMATOLOGICAL: Denies any bleeding or petechiae. GENITOURINARY: Denies any burning micturition, frequency, or urgency. MUSCULOSKELETAL/RHEUMATOLOGICAL: Denies any joint pain, swelling, or any muscle pain. ENDOCRINE: Denies any polyuria or polydipsia. Medications: tylenol, ceftriaxone, dopamine, heparin drip, hydralazine, norco , dilaudid, novolog insulin , claritin , melatonin ,a narcan , zofran , protonix , sodium chloride iv fluid, and armour thyroid ( doses are noted ) Objective - Vital Signs Vital signs: Vital Signs Temp 98.0 F 10/08/17 20:00 Pulse 60 10/08/17 21:00 Resp 25 H 10/08/17 21:00 BP 116/53 10/08/17 21:00 Pulse Ox 93 L 10/08/17 21:00 Intake & Output 10/08/17 10/08/17 10/09/17 06:59 18:59 06:59 Intake Total 568.755 7088.475 100 Output Total 285 327 17 Balance 724.879 6901.475 83 Weight 82.3 kg Intake: IV 1575 100 Sodium Chloride 0.9% 1, 1000 000 ml @ 50 mls/hr IV . Q20H [facility] Rx#:[id number] Sodium Chloride 0.9% 1, 450 000 ml @ 50 mls/hr IV . Q20H [facility] Rx#:[id number] Sodium Chloride 0.9% 1, 100 000 ml @ 50 mls/hr IV . Q20H [facility] Rx#:[id number] Intake, IV Titration 439.516 310.475 Amount DOPamine DRIP 800 mg In 6.566 160.480 Dextrose/Water 1 500ml. bag @ 5 MCG/KG/MIN 15.39 mls/hr IV .Q24H [facility] Rx#: [id number] Heparin Sod,Pork in 0.45% 82.95 99.995 NaCl 25,000 unit In 0.45 % NaCl 1 500ml.bag @ 12 UNITS/KG/HR 19.75 mls/hr IV .Q24H [facility] Rx#: [id number] Sodium Chloride 0.9% 1, 350 50 000 ml @ 50 mls/hr IV . Q20H [facility] Rx#:[id number] Oral 360 Output: Urine 285 327 17 Other: Voiding Method Indwelling Catheter Indwelling Catheter Indwelling Catheter # Voids 1 # Bowel Movements 1 - Exam GENERAL: The patient is alert and oriented x3, not in any acute distress. Well developed, well nourished. HEENT: Pupils are round and equally reacting to light. EOMI. No scleral icterus. No conjunctival pallor. Normocephalic, atraumatic. No pharyngeal erythema. No thyromegaly. CARDIOVASCULAR: S1 and S2 present. No murmurs, rubs, or gallops. PULMONARY: Chest is clear to auscultation, no wheezing or crackles. ABDOMEN: Soft, nontender, nondistended, normoactive bowel sounds. No palpable organomegaly. MUSCULOSKELETAL: No joint swelling or deformity. EXTREMITIES: No cyanosis, clubbing, or pedal edema. NEUROLOGICAL: Gross neurological examination did not reveal any focal deficits. SKIN: No rashes. - Labs CBC & Chem 7: 10/08/17 16:46 10/08/17 16:46 Labs: Abnormal Lab Results - Last 24 Hours (Table) 10/07/17 10/08/17 10/08/17 Range/Units 23:41 04:41 04:41 RBC (3.80-5.40) m/uL Hgb (11.4-16.0) gm/dL Hct (34.0-46.0) % Neutrophils # (1.3-7.7) k/uL Chloride 108 H (98-107) mmol/L Carbon Dioxide (22-30) mmol/L BUN 24 H (7-17) mg/dL Creatinine 1.70 H (0.52-1.04) mg/dL Glucose 152 H (74-99) mg/dL POC Glucose (mg/dL) 149 H (75-99) mg/dL Calcium (8.4-10.2) mg/dL Iron 15 L (50-170) ug/dL TIBC 210 L (228-460) ug/dL Iron Saturation 7.14 L (12.00-45.00) Total Protein (6.3-8.2) g/dL Albumin (3.5-5.0) g/dL Vitamin B12 1742.0 H (200.0-944.0) pg/mL 10/08/17 10/08/17 10/08/17 Range/Units 04:41 06:16 11:43 RBC 3.00 L (3.80-5.40) m/uL Hgb 8.5 L (11.4-16.0) gm/dL Hct 27.0 L (34.0-46.0) % Neutrophils # 7.9 H (1.3-7.7) k/uL Chloride (98-107) mmol/L Carbon Dioxide (22-30) mmol/L BUN (7-17) mg/dL Creatinine (0.52-1.04) mg/dL Glucose (74-99) mg/dL POC Glucose (mg/dL) 164 H 187 H (75-99) mg/dL Calcium (8.4-10.2) mg/dL Iron (50-170) ug/dL TIBC (228-460) ug/dL Iron Saturation (12.00-45.00) Total Protein (6.3-8.2) g/dL Albumin (3.5-5.0) g/dL Vitamin B12 (200.0-944.0) pg/mL 10/08/17 10/08/17 10/08/17 Range/Units 16:46 16:46 17:34 RBC 2.77 L (3.80-5.40) m/uL Hgb 8.0 L (11.4-16.0) gm/dL Hct 25.5 L (34.0-46.0) % Neutrophils # (1.3-7.7) k/uL Chloride 109 H (98-107) mmol/L Carbon Dioxide 21 L (22-30) mmol/L BUN 25 H (7-17) mg/dL Creatinine 1.68 H (0.52-1.04) mg/dL Glucose 110 H (74-99) mg/dL POC Glucose (mg/dL) 143 H (75-99) mg/dL Calcium 8.3 L (8.4-10.2) mg/dL Iron (50-170) ug/dL TIBC (228-460) ug/dL Iron Saturation (12.00-45.00) Total Protein 5.8 L (6.3-8.2) g/dL Albumin 3.2 L (3.5-5.0) g/dL Vitamin B12 (200.0-944.0) pg/mL 10/08/17 Range/Units 21:05 RBC (3.80-5.40) m/uL Hgb (11.4-16.0) gm/dL Hct (34.0-46.0) % Neutrophils # (1.3-7.7) k/uL Chloride (98-107) mmol/L Carbon Dioxide (22-30) mmol/L BUN (7-17) mg/dL Creatinine (0.52-1.04) mg/dL Glucose (74-99) mg/dL POC Glucose (mg/dL) 168 H (75-99) mg/dL Calcium (8.4-10.2) mg/dL Iron (50-170) ug/dL TIBC (228-460) ug/dL Iron Saturation (12.00-45.00) Total Protein (6.3-8.2) g/dL Albumin (3.5-5.0) g/dL Vitamin B12 (200.0-944.0) pg/mL Microbiology - Last 24 Hours (Table) 10/07/17 17:22 Urine Culture - Preliminary Urine,Clean Catch Assessment and Plan Assessment: Syncope Bradycardia with pauses sick sinus syndrome UTI Anemia Hypertension Thyroid disorder Chronic bronchitis Urine incontinence Peripheral neuropathy Plan: Patient is an 81 years old female who presents because of syncope and bradycardia. Continue with same treatment. Continue same treatment treatment. cardiology consult is appreciated , pt is s/p pacemaker for sick sinus syndrome. continue with dopamine and heparin drip as per cardiology recommendation, Resume home medication. Start ceftriaxone, follow-up UC. Continue with gentle hydration. Continue with blood pressure medication. GI and DVT prophylaxis. We'll continue with IV fluids and call nephrology consult. Patient with anemia we'll check FOBT: Pending Further recommendations based on her clinical course
[2017-10-09] MEDS: ceFAZolin IN SWFI 2 GM/20 ML SYRINGE IVP SCH ×3 (02:00→11:11)
[2017-10-09 04:58] LABS: Basophils % (A) 0 %; Eosinophils # (A) 0.3 k/uL (0-0.7); Eosinophils % (A) 3 %; HCT 23.8 % (34.0-46.0); HGB 7.7 gm/dL (11.4-16.0); Lymphocytes # (A) 1.5 k/uL (1.0-4.8); Lymphocytes % (A) 16 %; MCH 28.4 pg (25.0-35.0); MCHC 32.1 g/dL (31.0-37.0); MCV 88.3 fL (80.0-100.0); Mean Platelet Volume 9.2; Monocytes # (A) 0.8 k/uL (0-1.0); Monocytes % (A) 8 %; Neutrophils # (A) 7.1 k/uL (1.3-7.7); Neutrophils % (A) 72 %; Platelet Count 354 k/uL (150-450); RDW 13.3 % (11.5-15.5); WBC 9.8 k/uL (3.8-10.6)
[2017-10-09 04:59] LABS: Calcium 8.3 mg/dL (8.4-10.2); Magnesium 2.3 mg/dL (1.6-2.3); Phosphorus 4.7 mg/dL (2.5-4.5)
[2017-10-09 05:10] LABS: Large Platelets Present
[2017-10-09] MEDS: HEPARIN SOD,PORK IN 0.45% NACL 25,000 UNIT in 0.45% NACL 1 500ML.BAG IV SCH (06:34)
[2017-10-09 06:35] LABS: Glucose,Whole Blood 120 mg/dL (75-99)
[2017-10-09] MEDS: SODIUM CHLORIDE 0.9% 1,000 ML IV SCH (07:58)
[2017-10-09] MEDS: INSULIN ASPART 100 UNIT/ML 1 ML 10 ML VIAL SQ SCH ×4 (07:58→22:24)
[2017-10-09] MEDS: hydrALAZINE HCL 25 MG TAB PO SCH ×3 (08:02→22:24)
[2017-10-09] MEDS: THYROID, PORK 30 MG TAB PO SCH (08:02)
[2017-10-09] MEDS: PANTOPRAZOLE 40 MG TABLET PO SCH (08:02)
--- NOTE | 2017-10-09 08:34 | P.PCN ---
Date of Procedure: 10/09/17 Preoperative Diagnosis: Sick sinus syndrome with significant bradycardia and hypotension Postoperative Diagnosis: The same Procedure(s) Performed: Single-chamber permanent pacemaker implantation, axillary venography Description of Procedure: HISTORY: This is a 80-year-old female who was admitted to the hospital with episode of syncope. His also has anemia and renal failure. Patient developed evidence of sick sinus syndrome with significant sinus pauses, intermittent atrial fibrillation and also junctional bradycardia associated with hypotension. She was advised to have permanent pacemaker implantation. CONSENT:I have discussed the risks, benefits and alternative therapies for the above-mentioned procedure and for both sedation/analgesia as well as necessary blood product administration, if indicated, as they pertain to this patient and family by Dr. Avina . The patient has indicated understanding and acceptance of the risks and procedures discussed. PROCEDURE: Patient was brought to the lab in a fasting state. Patient was prepped and draped in the usual fashion. Patient was IV sedation, as described below.. The skin below the left clavicle was infiltrated with lidocaine. An incision was made parallel to deltopectoral groove was deepened until the pectoral fascia was exposed. A pocket was created by blunt dissection and cautery. Axillary venography was performed to delineate the course of the axillary vein. 2 sticks were performed into extrathoracic portion of the axillary vein and 2 sheaths were advanced over the guidewires and left in subclavian vein. Conscious Sedation: Versed 0mg Fentanyl 37.5 g Duration 52 minutes LEADS: ATRIAL: Attempts were made to insert an atrial lead. No satisfactory position of signal was obtained. Atrial lead was pulled out and only single-chamber device was implanted. VENTRICULAR: This is manufactured by [employer]. Model number is [id number]. Serial number is [id number]. THE DEVICE: This is manufactured by [employer]. Model number is [id number] and the serial number is [id number]. The ventricular lead is maneuvered l with help of a straight and curved stylets into the left ventricle apical region. Satisfactory position was obtained and threshold measurements were made. And thresholds were obtained. THRESHOLDS: VENTRICLE: THE MINIMUM PATIENT THRESHOLD IS 0.4 V AT PULSE WIDTH OF 0.5. THE IMPEDANCE IS 1098. THE R-WAVE IS 10.1. The leads and pulse generator remained in the pocket after it was washed with antibiotics. Pocket was closed in the usual fashion. The fascia was closed with 2-0 Prolene ,the subcutaneous tissue was closed with 3-0 Prolene and the skin was closed with 4-0 Prolene. PROGRAMMING: MODE: VVIR RATE: 60 TO 1:30 OUTPUT: Ventricle: 3.5 V FINAL IMPRESSION: SUCCESSFUL IMPLANTATION OF SINGLE-CHAMBER AICD. AXILLARY VENOGRAPHY COMPLICATIONS: NONE PLAN:. CONTINUE PROPHYLACTIC ANTIBIOTICS. MONITOR ON THE TELEMETRY UNIT. CHEST X-RAY IN THE MORNING.
--- NOTE | 2017-10-09 09:12 | PN ---
PROGRESS NOTE DATE OF SERVICE: 10/09/2017. HISTORY: Ms. Perez is an 81-old female who presented with a syncopal episode. Was found to have long pauses and sick sinus syndrome. She underwent permanent pacemaker implantation yesterday with a VVI. She is feeling much better today. Her breathing is stable. She has some soreness at the site of the pacemaker. Otherwise, no chest pain. No dizziness. No palpitations. Hemodynamically, she is stable. She is more alert. She continues to be on ceftriaxone, aspirin, hydralazine 25 mg 3 times a day, insulin. PHYSICAL EXAMINATION: Blood pressure running in the 140s with a heart rate in the 60s. LUNGS: Clear. HEART: Irregular regular. S1, S2 with a systolic murmur, no diastolic murmur. Pacemaker site clean. ABDOMEN: Soft, nontender. EXTREMITIES: No edema. LAB DATA: Potassium 6.0, BUN and creatinine of 33 and 2.03. Hemoglobin of 7.7. IMPRESSION: 1. Sick sinus syndrome with long pauses, status post permanent pacemaker implantation. 2. Renal failure, could be related to acute tubular necrosis. 3. Hypertension. RECOMMENDATIONS: We will follow her renal function closely. She should be able to be transferred to telemetry floor. I will hold on oral anticoagulation for another 24 hours, then will initiate treatment with Eliquis. We will follow her renal function to adjust the doses. Depending on her progress, further recommendations will be made. LASHONL / CLARITAN: [id number] /
[2017-10-09] MEDS: METOPROLOL TARTRATE 25 MG TAB PO SCH ×2 (11:09→20:03)
[2017-10-09] MEDS ORDERED: SODIUM POLYSTYRENE SULFONATE 15 GM/60 ML BOTTLE PO STA (11:28)
[2017-10-09 12:20] LABS: Glucose,Whole Blood 205 mg/dL (75-99)
[2017-10-09] MEDS ORDERED: DEXTROSE 50%-WATER 50 ML SYRINGE IVP STA (13:07)
[2017-10-09] MEDS ORDERED: SODIUM BICARB 8.4% 50 ML SYR (1 MEQ/ML) IV ONE (13:07)
[2017-10-09] MEDS ORDERED: INSULIN REGULAR 100 UNIT/ML VIAL IV ONE (13:07)
--- NOTE | 2017-10-09 13:09 | P.PN ---
Subjective Patient is seen in follow-up for acute kidney injury. Renal function is worsening with creatinine up to 2.03 today. Patient presented with a near syncopal episode. She was hypotensive on admission with systolic blood pressure in the 70s. She had a pacemaker placed on October 08. She is currently having lunch. She is off all vasopressors at this time. Denies vomiting or diarrhea. Saab catheter came out this morning. Vital signs are stable. General: The patient appeared well nourished and normally developed. HEENT: Head exam is unremarkable. Neck is without jugular venous distension. LUNGS: Lungs are clear to auscultation and percussion. Breath sounds decreased. HEART: Rate and Rhythm are regular. First and second heart sounds normal. No murmurs, rubs or gallops. ABDOMEN: Abdominal exam reveals normal bowel sounds. Non-tender and non- distended. No evidence of peritonitis. EXTREMITITES: No clubbing, cyanosis, or edema. Objective - Vital Signs Vital signs: Vital Signs Temp 98.3 F 10/09/17 08:00 Pulse 60 10/09/17 08:00 Resp 15 10/09/17 08:00 BP 140/59 10/09/17 08:00 Pulse Ox 94 L 10/09/17 08:00 Intake & Output 10/08/17 10/09/17 10/09/17 18:59 06:59 18:59 Intake Total 2245.475 150 100 Output Total 327 17 180 Balance 1918.475 133 -80 Weight 84.1 kg 84.1 kg Intake: IV 1575 150 100 Sodium Chloride 0.9% 1, 1000 000 ml @ 50 mls/hr IV . Q20H [facility] Rx#:[id number] Sodium Chloride 0.9% 1, 450 000 ml @ 50 mls/hr IV . Q20H [facility] Rx#:[id number] Sodium Chloride 0.9% 1, 150 100 000 ml @ 50 mls/hr IV . Q20H [facility] Rx#:[id number] Intake, IV Titration 310.475 Amount DOPamine DRIP 800 mg In 160.480 Dextrose/Water 1 500ml. bag @ 5 MCG/KG/MIN 15.39 mls/hr IV .Q24H [facility] Rx#: [id number] Heparin Sod,Pork in 0.45% 99.995 NaCl 25,000 unit In 0.45 % NaCl 1 500ml.bag @ 12 UNITS/KG/HR 19.75 mls/hr IV .Q24H [facility] Rx#: [id number] Sodium Chloride 0.9% 1, 50 000 ml @ 50 mls/hr IV . Q20H [facility] Rx#:[id number] Oral 360 Output: Urine 327 17 180 Other: Voiding Method Indwelling Catheter Indwelling Catheter Indwelling Catheter # Voids 1 - Labs CBC & Chem 7: 10/09/17 04:23 10/09/17 04:23 Labs: Abnormal Lab Results - Last 24 Hours (Table) 10/08/17 10/08/17 10/08/17 Range/Units 04:41 16:46 16:46 RBC 2.77 L (3.80-5.40) m/uL Hgb 8.0 L (11.4-16.0) gm/dL Hct 25.5 L (34.0-46.0) % Potassium (3.5-5.1) mmol/L Chloride 109 H (98-107) mmol/L Carbon Dioxide 21 L (22-30) mmol/L BUN 25 H (7-17) mg/dL Creatinine 1.68 H (0.52-1.04) mg/dL Glucose 110 H (74-99) mg/dL POC Glucose (mg/dL) (75-99) mg/dL Hemoglobin A1c 6.1 H (4.0-6.0) % Calcium 8.3 L (8.4-10.2) mg/dL Phosphorus (2.5-4.5) mg/dL Total Protein 5.8 L (6.3-8.2) g/dL Albumin 3.2 L (3.5-5.0) g/dL 10/08/17 10/08/17 10/09/17 Range/Units 17:34 21:05 04:23 RBC 2.70 L (3.80-5.40) m/uL Hgb 7.7 L (11.4-16.0) gm/dL Hct 23.8 L (34.0-46.0) % Potassium (3.5-5.1) mmol/L Chloride (98-107) mmol/L Carbon Dioxide (22-30) mmol/L BUN (7-17) mg/dL Creatinine (0.52-1.04) mg/dL Glucose (74-99) mg/dL POC Glucose (mg/dL) 143 H 168 H (75-99) mg/dL Hemoglobin A1c (4.0-6.0) % Calcium (8.4-10.2) mg/dL Phosphorus (2.5-4.5) mg/dL Total Protein (6.3-8.2) g/dL Albumin (3.5-5.0) g/dL 10/09/17 10/09/17 10/09/17 Range/Units 04:23 06:33 12:18 RBC (3.80-5.40) m/uL Hgb (11.4-16.0) gm/dL Hct (34.0-46.0) % Potassium 6.0 H (3.5-5.1) mmol/L Chloride 111 H (98-107) mmol/L Carbon Dioxide 19 L (22-30) mmol/L BUN 33 H (7-17) mg/dL Creatinine 2.03 H (0.52-1.04) mg/dL Glucose 105 H (74-99) mg/dL POC Glucose (mg/dL) 120 H 205 H (75-99) mg/dL Hemoglobin A1c (4.0-6.0) % Calcium 8.3 L (8.4-10.2) mg/dL Phosphorus 4.7 H (2.5-4.5) mg/dL Total Protein (6.3-8.2) g/dL Albumin (3.5-5.0) g/dL Microbiology - Last 24 Hours (Table) 10/07/17 17:22 Urine Culture - Final Urine,Clean Catch Assessment and Plan Plan: Assessment: 1. Acute kidney injury secondary to ischemic ATN secondary to hypotension and hemodynamic instability. Creatinine was 1.8 on admission and is 2.03. 2. Rule out chronic kidney disease. Creatinine in 2016 was 0.6. In September 2017 her creatinine has been 1.11 at best. 3. Syncopal episode related to sick sinus syndrome. Status post pacemaker placement on October 08. 4. Anemia. Iron deficiency noted. 5. UTI maintained on IV Rocephin. Urine culture pending. 6. Hyperkalemia secondary to acute kidney injury and metabolic acidosis. 7. Metabolic acidosis secondary to acute kidney injury. 8. Proteinuria. Plan: Continue normal saline at 50 mL an hour. Continue to monitor renal function and urine output closely. Ferrlecit 125 mg IV daily for 3 days. First dose today. Avoid nephrotoxic agents and hypotensive episodes. Patient scheduled to receive Kayexalate this morning. I will give her 10 units of IV regular insulin with an amp of D50 and 2 A of sodium bicarbonate IV push. Repeat potassium level this evening. Check serologies and quantify proteinuria. Check renal uls.
[2017-10-09] MEDS: SODIUM FERRIC GLUCONAT-SUCROSE 125 MG in SODIUM CHLORIDE 0.9% 100 ML IVPB SCH (14:00)
[2017-10-09 14:26] LABS: Glucose,Whole Blood 153 mg/dL (75-99)
--- NOTE | 2017-10-09 14:47 | XR ---
EXAMINATION TYPE: XR chest 2V DATE OF EXAM: 10/09/2017 COMPARISON: 10/06/2017 HISTORY: Lead placement check TECHNIQUE: Frontal and lateral views of the chest are obtained. FINDINGS: The lateral view is nondiagnostic. There is redemonstration of pulmonary vascular congesti on and chronic interstitial prominence. New single lead cardiac device is seen with a ventricular edwin d in place. No postprocedural pneumothorax. Osseous mineralization, dextroscoliosis and multilevel de generative changes are noted. Chronic blunting of the left costophrenic angle may relate to scarring or a trace pleural effusion. IMPRESSION: Interval insertion of a single lead left-sided cardiac device with no postprocedural pne umothorax. Table chronic interstitial prominence may relate to interstitial edema and/or pulmonary fi brosis.
--- NOTE | 2017-10-09 15:45 | US ---
EXAMINATION TYPE: US kidneys/renal and bladder DATE OF EXAM: 10/09/2017 COMPARISON: 10/01/2017 CLINICAL HISTORY: hossein. EXAM MEASUREMENTS: Right Kidney: 12.2 x 5.2 x 5.3 cm Left Kidney: 10.8 x 6.5 x 5.0 cm Post Void Residual Volume: mL Technically difficult study, large body habitus, inpatient, unable to move for examiner. Right Kidney: cysts, largest measuring 1.6 x 1.4 x 1.5cm Left Kidney: cysts, largest measuring 1.4 x 1.8 x 1.6cm Bladder: not well visualized, not distended Bilateral Jets seen: No There is no evidence for hydronephrosis at this point in time. No nephrolithiasis is seen. IMPRESSION: Bilateral renal cysts as seen on the prior exam of 09/21/2017, however the urinary bladder is not well visualized due to incomplete distention and therefore the previously seen questionable urinary bladde r mass cannot be further evaluated.
[2017-10-09 16:33] LABS: Glucose,Whole Blood 83 mg/dL (75-99)
--- NOTE | 2017-10-09 17:11 | P.PN ---
Subjective This is a pleasant 81 years old female with past medical history of diabetes mellitus, hypertension, thyroid disorder, vertigo, chronic bronchitis, urine incontinence, peripheral neuropathy, who presents because of syncope, patient states she blacked out twice 1 last week and one yesterday. Patient also complaining of from dizziness which is nonspecific comes and goes. No associated chest pain or nausea vomiting. Patient states she has infection in her urine and she is complaining of from leg cramps. On admission her creatinine is up at 1.8, compared to baseline of 1.1-1.2, patient looks dehydrated. 10/08/2017 pt was transferred to the ICU over night for sever bradycardia , she was started on dopamine drip. as per plant safety leader pt has symptomatic pauses , pt mostly is with sick sinus syndrome , pt status post pacemaker placement on , pt was lying in bed and feels better. she remains on iv fluids and her cr is trending down to 1.6 , pt still has anemia , anemia work up is still on process , pt is on ceftiaxone for her urinary tract infection , and yesterday we gave her 2 gram as it is anticipated to have surgical intervention with pacemaker which iwas urgent/emergent. pt vitals are more stable currently and pt might be considered to be transfered to general medical floor 10/09/2017 Patient remains in the ICU, she is status post pacemaker placement for sick sinus syndrome and syncope. Blood pressures on normal high side. Metoprolol 25 twice a day is added Her creatinine went up from 1.6 TO 2.0. PATIENT IS STILL ON IV ANTIBIOTICS FOR UTI. k = 6.0, Kayexalate provided, follow-up potassium level. Urine culture: No growth REVIEW OF SYSTEMS: CONSTITUTIONAL: No fever, no malaise, no fatigue. HEENT: No recent visual problems or hearing problems. Denied any sore throat. CARDIOVASCULAR: No orthopnea, PND, no palpitations, no syncope. PULMONARY: No shortness of breath, no cough, no hemoptysis. GASTROINTESTINAL: No diarrhea, no nausea, no vomiting, no abdominal pain. Normoactive bowel sounds. NEUROLOGICAL: No headaches, no weakness, no numbness. HEMATOLOGICAL: Denies any bleeding or petechiae. GENITOURINARY: Denies any burning micturition, frequency, or urgency. MUSCULOSKELETAL/RHEUMATOLOGICAL: Denies any joint pain, swelling, or any muscle pain. ENDOCRINE: Denies any polyuria or polydipsia. Medications: tylenol, ceftriaxone, dopamine, heparin drip, hydralazine, norco , dilaudid, novolog insulin , claritin , melatonin ,a narcan , zofran , protonix , sodium chloride iv fluid, and armour thyroid ( doses are noted ) Objective - Vital Signs Vital signs: Vital Signs Temp 98.1 F 10/09/17 15:01 Pulse 60 10/09/17 08:00 Resp 18 10/09/17 15:01 BP 139/61 10/09/17 15:01 Pulse Ox 98 10/09/17 15:01 Intake & Output 10/08/17 10/09/17 10/09/17 18:59 06:59 18:59 Intake Total 2245.475 150 996 Output Total 327 17 405 Balance 1918.475 133 591 Weight 84.1 kg 84.1 kg Intake: IV 1575 150 430 .9 200 Invasive Line 1 10 Invasive Line 2 20 Sodium Chloride 0.9% 1, 1000 000 ml @ 50 mls/hr IV . Q20H JAMIE Rx#:[id number] Sodium Chloride 0.9% 1, 450 000 ml @ 50 mls/hr IV . Q20H JAMIE Rx#:[id number] Sodium Chloride 0.9% 1, 150 100 000 ml @ 50 mls/hr IV . Q20H JAMIE Rx#:[id number] Sodium Ferric Gluconat- 100 Sucrose 125 mg In Sodium Chloride 0.9% 100 ml @ 100 mls/hr IVPB DAILY JAMIE Rx#:[id number] Intake, IV Titration 310.475 Amount DOPamine DRIP 800 mg In 160.480 Dextrose/Water 1 500ml. bag @ 5 MCG/KG/MIN 15.39 mls/hr IV .Q24H STA Rx#: [id number] Heparin Sod,Pork in 0.45% 99.995 NaCl 25,000 unit In 0.45 % NaCl 1 500ml.bag @ 12 UNITS/KG/HR 19.75 mls/hr IV .Q24H JAMIE Rx#: [id number] Sodium Chloride 0.9% 1, 50 000 ml @ 50 mls/hr IV . Q20H JAMIE Rx#:[id number] Oral 360 566 Output: Urine 327 17 405 Other: Voiding Method Indwelling Catheter Indwelling Catheter Bedside Commode Diaper Incontinent # Voids 0 # Bowel Movements 1 - Exam GENERAL: The patient is alert and oriented x3, not in any acute distress. Well developed, well nourished. HEENT: Pupils are round and equally reacting to light. EOMI. No scleral icterus. No conjunctival pallor. Normocephalic, atraumatic. No pharyngeal erythema. No thyromegaly. CARDIOVASCULAR: S1 and S2 present. No murmurs, rubs, or gallops. PULMONARY: Chest is clear to auscultation, no wheezing or crackles. ABDOMEN: Soft, nontender, nondistended, normoactive bowel sounds. No palpable organomegaly. MUSCULOSKELETAL: No joint swelling or deformity. EXTREMITIES: No cyanosis, clubbing, or pedal edema. NEUROLOGICAL: Gross neurological examination did not reveal any focal deficits. SKIN: No rashes. - Labs CBC & Chem 7: 10/09/17 04:23 10/09/17 04:23 Labs: Abnormal Lab Results - Last 24 Hours (Table) 10/08/17 10/08/17 10/08/17 Range/Units 04:41 16:46 16:46 RBC 2.77 L (3.80-5.40) m/uL Hgb 8.0 L (11.4-16.0) gm/dL Hct 25.5 L (34.0-46.0) % Potassium (3.5-5.1) mmol/L Chloride 109 H (98-107) mmol/L Carbon Dioxide 21 L (22-30) mmol/L BUN 25 H (7-17) mg/dL Creatinine 1.68 H (0.52-1.04) mg/dL Glucose 110 H (74-99) mg/dL POC Glucose (mg/dL) (75-99) mg/dL Hemoglobin A1c 6.1 H (4.0-6.0) % Calcium 8.3 L (8.4-10.2) mg/dL Phosphorus (2.5-4.5) mg/dL Total Protein 5.8 L (6.3-8.2) g/dL Albumin 3.2 L (3.5-5.0) g/dL U Random Total Protein (<12) mg/dL 10/08/17 10/08/17 10/09/17 Range/Units 17:34 21:05 04:23 RBC 2.70 L (3.80-5.40) m/uL Hgb 7.7 L (11.4-16.0) gm/dL Hct 23.8 L (34.0-46.0) % Potassium (3.5-5.1) mmol/L Chloride (98-107) mmol/L Carbon Dioxide (22-30) mmol/L BUN (7-17) mg/dL Creatinine (0.52-1.04) mg/dL Glucose (74-99) mg/dL POC Glucose (mg/dL) 143 H 168 H (75-99) mg/dL Hemoglobin A1c (4.0-6.0) % Calcium (8.4-10.2) mg/dL Phosphorus (2.5-4.5) mg/dL Total Protein (6.3-8.2) g/dL Albumin (3.5-5.0) g/dL U Random Total Protein (<12) mg/dL 10/09/17 10/09/17 10/09/17 Range/Units 04:23 06:33 12:18 RBC (3.80-5.40) m/uL Hgb (11.4-16.0) gm/dL Hct (34.0-46.0) % Potassium 6.0 H (3.5-5.1) mmol/L Chloride 111 H (98-107) mmol/L Carbon Dioxide 19 L (22-30) mmol/L BUN 33 H (7-17) mg/dL Creatinine 2.03 H (0.52-1.04) mg/dL Glucose 105 H (74-99) mg/dL POC Glucose (mg/dL) 120 H 205 H (75-99) mg/dL Hemoglobin A1c (4.0-6.0) % Calcium 8.3 L (8.4-10.2) mg/dL Phosphorus 4.7 H (2.5-4.5) mg/dL Total Protein (6.3-8.2) g/dL Albumin (3.5-5.0) g/dL U Random Total Protein (<12) mg/dL 10/09/17 10/09/17 Range/Units 14:20 15:27 RBC (3.80-5.40) m/uL Hgb (11.4-16.0) gm/dL Hct (34.0-46.0) % Potassium (3.5-5.1) mmol/L Chloride (98-107) mmol/L Carbon Dioxide (22-30) mmol/L BUN (7-17) mg/dL Creatinine (0.52-1.04) mg/dL Glucose (74-99) mg/dL POC Glucose (mg/dL) 153 H (75-99) mg/dL Hemoglobin A1c (4.0-6.0) % Calcium (8.4-10.2) mg/dL Phosphorus (2.5-4.5) mg/dL Total Protein (6.3-8.2) g/dL Albumin (3.5-5.0) g/dL U Random Total Protein 93 H (<12) mg/dL Microbiology - Last 24 Hours (Table) 10/07/17 17:22 Urine Culture - Final Urine,Clean Catch Assessment and Plan Assessment: Syncope Bradycardia with pauses sick sinus syndrome UTI Anemia Hypertension Thyroid disorder Chronic bronchitis Urine incontinence Peripheral neuropathy Plan: Patient is an 81 years old female who presents because of syncope and bradycardia. Continue with same treatment. Continue same treatment treatment. cardiology consult is appreciated , pt is s/p pacemaker for sick sinus syndrome. Patient is off dopamine and heparin drip as per cardiology recommendation, possible starting eliquis tomorrow . . Resume home medication. Continue with ceftriaxone, follow-up UC. Continue with gentle hydration. Continue with blood pressure medication. GI and DVT prophylaxis. We'll continue with IV fluids and nephrology consult is following the patient. Patient with anemia .FOBT: Pending, Iron and B12: Pending Further recommendations based on her clinical course. Patient have high potassium of 6.0, Kayexalate. Plus the insulin and bicarbonate by the nephrology team. Follow-up potassium level Renal ultrasound: Pending Prognosis guarded
[2017-10-09] MEDS: cefTRIAXone IN SWFI 1,000 MG/10 ML SYRINGE IVP SCH (17:24)
[2017-10-09] MEDS: LORATADINE 10 MG TAB PO SCH ×2 (20:03→22:23)
[2017-10-09] MEDS: MELATONIN 5 MG TABLET PO SCH (20:03)
[2017-10-09] MEDS ORDERED: HYDROmorphone 2 MG TAB PO PRN (21:17)
[2017-10-09 21:20] LABS: Glucose,Whole Blood 146 mg/dL (75-99)
[2017-10-10] MEDS: SODIUM CHLORIDE 0.9% 1,000 ML IV SCH (02:00)
[2017-10-10] MEDS: HEPARIN SOD,PORK IN 0.45% NACL 25,000 UNIT in 0.45% NACL 1 500ML.BAG IV SCH ×2 (05:06→11:04)
[2017-10-10] MEDS: INSULIN ASPART 100 UNIT/ML 1 ML 10 ML VIAL SQ SCH ×5 (05:50→21:27)
[2017-10-10 06:01] LABS: Glucose,Whole Blood 123 mg/dL (75-99)
[2017-10-10 06:34] LABS: Basophils % (A) 0 %; Eosinophils # (A) 0.4 k/uL (0-0.7); Eosinophils % (A) 5 %; HCT 24.2 % (34.0-46.0); HGB 7.7 gm/dL (11.4-16.0); Hypochromasia Slight; Lymphocytes # (A) 1.3 k/uL (1.0-4.8); Lymphocytes % (A) 14 %; MCH 28.8 pg (25.0-35.0); MCHC 31.8 g/dL (31.0-37.0); MCV 90.4 fL (80.0-100.0); Mean Platelet Volume 7.3; Monocytes # (A) 0.6 k/uL (0-1.0); Monocytes % (A) 7 %; Neutrophils # (A) 6.5 k/uL (1.3-7.7); Neutrophils % (A) 72 %; Platelet Count 391 k/uL (150-450); RBC 2.68 m/uL (3.80-5.40); RDW 13.1 % (11.5-15.5)
[2017-10-10 06:50] LABS: Calcium 8.5 mg/dL (8.4-10.2); Magnesium 2.2 mg/dL (1.6-2.3); Phosphorus 3.5 mg/dL (2.5-4.5); Potassium 4.8 mmol/L (3.5-5.1)
[2017-10-10] MEDS: METOPROLOL TARTRATE 25 MG TAB PO SCH ×2 (09:52→21:27)
[2017-10-10] MEDS: PANTOPRAZOLE 40 MG TABLET PO SCH (09:52)
[2017-10-10] MEDS: hydrALAZINE HCL 25 MG TAB PO SCH ×3 (09:52→20:38)
[2017-10-10] MEDS: SODIUM FERRIC GLUCONAT-SUCROSE 125 MG in SODIUM CHLORIDE 0.9% 100 ML IVPB SCH (09:52)
[2017-10-10] MEDS: THYROID, PORK 30 MG TAB PO SCH (09:52)
--- NOTE | 2017-10-10 09:52 | P.PN ---
Subjective Patient is seen in follow-up for acute kidney injury. Creatinine peaked at 2.03 this admission and is down to 1.7 today. Patient presented with a near syncopal episode. She was hypotensive on admission with systolic blood pressure in the 70s. She had a pacemaker placed on October 08. She is off all vasopressors at this time. Denies vomiting or diarrhea. Admits to good urine output. Oral intake is fair. Vital signs are stable. General: The patient appeared well nourished and normally developed. HEENT: Head exam is unremarkable. Neck is without jugular venous distension. LUNGS: Lungs are clear to auscultation and percussion. Breath sounds decreased. HEART: Rate and Rhythm are regular. First and second heart sounds normal. No murmurs, rubs or gallops. ABDOMEN: Abdominal exam reveals normal bowel sounds. Non-tender and non- distended. No evidence of peritonitis. EXTREMITITES: No clubbing, cyanosis, or edema. Objective - Vital Signs Vital signs: Vital Signs Temp 97.4 F L 10/10/17 04:00 Pulse 65 10/10/17 04:00 Resp 18 10/10/17 04:00 BP 156/67 10/10/17 04:00 Pulse Ox 96 10/10/17 04:00 Intake & Output 10/09/17 10/10/17 10/10/17 18:59 06:59 18:59 Intake Total 1473 Output Total 405 240 Balance 1068 -240 Weight 84.1 kg 83.7 kg Intake: IV 430 .9 200 Invasive Line 1 10 Invasive Line 2 20 Sodium Chloride 0.9% 1, 100 000 ml @ 50 mls/hr IV . Q20H JAMIE Rx#:[id number] Sodium Ferric Gluconat- 100 Sucrose 125 mg In Sodium Chloride 0.9% 100 ml @ 100 mls/hr IVPB DAILY JAMEI Rx#:[id number] Oral 1043 Output: Urine 405 Post Void Residual 240 Other: Voiding Method Bedside Commode Bedside Commode Diaper Diaper Incontinent Incontinent # Voids 0 2 # Bowel Movements 1 - Labs CBC & Chem 7: 10/10/17 05:49 10/10/17 05:49 Labs: Abnormal Lab Results - Last 24 Hours (Table) 10/09/17 10/09/17 10/09/17 Range/Units 12:18 14:20 15:27 RBC (3.80-5.40) m/uL Hgb (11.4-16.0) gm/dL Hct (34.0-46.0) % Potassium (3.5-5.1) mmol/L Chloride (98-107) mmol/L BUN (7-17) mg/dL Creatinine (0.52-1.04) mg/dL POC Glucose (mg/dL) 205 H 153 H (75-99) mg/dL U Random Total Protein 93 H (<12) mg/dL 10/09/17 10/09/17 10/10/17 Range/Units 18:30 21:18 05:49 RBC 2.68 L (3.80-5.40) m/uL Hgb 7.7 L (11.4-16.0) gm/dL Hct 24.2 L (34.0-46.0) % Potassium 5.2 H (3.5-5.1) mmol/L Chloride (98-107) mmol/L BUN (7-17) mg/dL Creatinine (0.52-1.04) mg/dL POC Glucose (mg/dL) 146 H (75-99) mg/dL U Random Total Protein (<12) mg/dL 10/10/17 10/10/17 Range/Units 05:49 05:58 RBC (3.80-5.40) m/uL Hgb (11.4-16.0) gm/dL Hct (34.0-46.0) % Potassium (3.5-5.1) mmol/L Chloride 111 H (98-107) mmol/L BUN 30 H (7-17) mg/dL Creatinine 1.70 H (0.52-1.04) mg/dL POC Glucose (mg/dL) 123 H (75-99) mg/dL U Random Total Protein (<12) mg/dL Assessment and Plan Plan: Assessment: 1. Acute kidney injury secondary to ischemic ATN secondary to hypotension and hemodynamic instability. Creatinine peaked at 2.03 this admission and is down to 1.7 today. No evidence of hydronephrosis noted on renal ultrasound. 2. Rule out chronic kidney disease. Creatinine in 2015 was 0.6. In September 2017 her creatinine has been 1.11 at best. 3. Syncopal episode related to sick sinus syndrome. Status post pacemaker placement on October 08. 4. Anemia. Iron deficiency noted. 5. UTI maintained on IV Rocephin. Urine culture pending. 6. Hyperkalemia secondary to acute kidney injury and metabolic acidosis. Improved. 7. Metabolic acidosis secondary to acute kidney injury. Improved. 8. Proteinuria. Plan: Continue normal saline at 50 mL an hour. Ferrlecit 125 mg IV daily for 3 days. Second dose today. Avoid nephrotoxic agents and hypotensive episodes. Follow-up serologies.
[2017-10-10] MEDS ORDERED: APIXABAN 2.5 MG TABLET PO SCH (10:30)
[2017-10-10] MEDS ORDERED: HEPARIN SODIUM,PORCINE 5,000 UNIT/ML 1 ML VIAL IV PRN (10:33)
[2017-10-10] MEDS ORDERED: HEPARIN SODIUM,PORCINE 5,000 UNIT/ML 1 ML VIAL IV ONE (10:33)
--- NOTE | 2017-10-10 11:20 | PN ---
PROGRESS NOTE Mrs. Perez is an 81-year-old female who presented with symptoms of dizziness and presyncope and was found to have evidence of sick sinus syndrome with long pauses. She underwent permanent pacemaker implantation. This morning she is back in sinus mechanism, but she is complaining of numbness in the left arm and discomfort. She denies any chest pain. Her breathing has been stable. She denies any dizziness or palpitation. She continues to be at this time on hydralazine 25 mg 3 times a day, metoprolol 25 mg twice a day, and Synthroid. PHYSICAL EXAMINATION: Blood pressure running in the 130 to 150 with the heart rate in the 60s. LUNGS: Clear. HEART: Regular rate and rhythm. S1, S2. No S3 with systolic ejection murmur 2/6. No diastolic murmur. ABDOMEN: Soft, nontender. EXTREMITIES: Lower extremities no edema. Left upper extremity, there is some decrease in the radial pulse. She feels numb. Pacemaker site is clean. LAB DATA: Lab data revealed a BUN and creatinine at 30 and 1.7. Potassium 4.8. Hemoglobin of 7.7. IMPRESSION: 1. Sick sinus syndrome with long pauses, status post permanent pacemaker implantation. 2. Back in sinus mechanism. 3. Numbness in the left extremity, rule out arterial occlusion. 4. Renal failure, improving. 5. Anemia. RECOMMENDATION: From the cardiac standpoint, I will start her on the heparin and obtain a duplex scan of her left upper extremity radial system. If there is no evidence of significant abnormality, then we will switch her to Eliquis and follow her renal function and depending on her progress, further recommendation will be made. MMODL / IJN: [id number] /
[2017-10-10 11:23] LABS: Basophils % (A) 1 %; Eosinophils # (A) 0.3 k/uL (0-0.7); Eosinophils % (A) 4 %; HGB 7.8 gm/dL (11.4-16.0); Lymphocytes # (A) 0.9 k/uL (1.0-4.8); Lymphocytes % (A) 10 %; MCH 28.2 pg (25.0-35.0); MCHC 31.3 g/dL (31.0-37.0); MCV 89.9 fL (80.0-100.0); Mean Platelet Volume 7.6; Monocytes # (A) 0.6 k/uL (0-1.0); Monocytes % (A) 6 %; Neutrophils # (A) 7.1 k/uL (1.3-7.7); Neutrophils % (A) 78 %; Platelet Count 391 k/uL (150-450); RBC 2.79 m/uL (3.80-5.40); RDW 13.3 % (11.5-15.5)
[2017-10-10 11:24] LABS: Hepatitis A Antibody IgM Non-Reactive (Non-Reactive); Hepatitis B Core IgM Non-Reactive (Non-Reactive)
[2017-10-10 11:42] LABS: Glucose,Whole Blood 159 mg/dL (75-99)
[2017-10-10 11:52] LABS: INR 1.1 (<1.2); Partial Thromboplastin Time 28.1 sec (22.0-30.0)
--- NOTE | 2017-10-10 12:00 | P.ARTDOP ---
Arterial Doppler Upper extremity arterial Doppler: Reason for study: Left arm pain and numbness Date of study: 10/10/2018 Doppler waveforms are multiphasic throughout on the right. They are atypical throughout on the left. There is a very significant pressure gradient above the brachial on the left with a pressure of 170 on the right and 58 on the left at the radial level. Impression: Moderate to severe occlusive process proximal to the brachial. CT angiogram may delineate the exact location of the obstructive process. Surgical consult should be considered.
--- NOTE | 2017-10-10 16:32 | P.PN ---
Subjective This is a pleasant 81 years old female with past medical history of diabetes mellitus, hypertension, thyroid disorder, vertigo, chronic bronchitis, urine incontinence, peripheral neuropathy, who presents because of syncope, patient states she blacked out twice 1 last week and one yesterday. Patient also complaining of from dizziness which is nonspecific comes and goes. No associated chest pain or nausea vomiting. Patient states she has infection in her urine and she is complaining of from leg cramps. On admission her creatinine is up at 1.8, compared to baseline of 1.1-1.2, patient looks dehydrated. 10/08/2017 pt was transferred to the ICU over night for sever bradycardia , she was started on dopamine drip. as per test department helper pt has symptomatic pauses , pt mostly is with sick sinus syndrome , pt status post pacemaker placement on , pt was lying in bed and feels better. she remains on iv fluids and her cr is trending down to 1.6 , pt still has anemia , anemia work up is still on process , pt is on ceftiaxone for her urinary tract infection , and yesterday we gave her 2 gram as it is anticipated to have surgical intervention with pacemaker which iwas urgent/emergent. pt vitals are more stable currently and pt might be considered to be transfered to general medical floor 10/09/2017 Patient remains in the ICU, she is status post pacemaker placement for sick sinus syndrome and syncope. Blood pressures on normal high side. Metoprolol 25 twice a day is added Her creatinine went up from 1.6 TO 2.0. PATIENT IS STILL ON IV ANTIBIOTICS FOR UTI. k = 6.0, Kayexalate provided, follow-up potassium level. Urine culture: No growth 10/10/2017 Patient this morning after she took a shower she felt numbness in her left upper extremity, patient does not complain from weakness in her left upper extremity, however her movement of the left upper extremity is limited by pain from the surgical site of the left upper chest pacemaker. at that time she was evaluated by test department helper Dr. Avina. There is weak radial pulse, arterial Doppler shows significant pressure gradient above the brachial on the left with a pressure of 170 on the right and 58 on the left at that radial level. Which is suspected for arterial thrombosis of the left upper extremity. Patient was a started on heparin drip and Vascular surgeon is been consulted, I discussed the case with the vascular surgeon on-call. Patient is going for possible embolectomy this afternoon. Later on patient complained from numbness of both lower extremities, arterial Doppler was ordered and the result is pending. Son is at bedside REVIEW OF SYSTEMS: CONSTITUTIONAL: No fever, no malaise, no fatigue. HEENT: No recent visual problems or hearing problems. Denied any sore throat. CARDIOVASCULAR: No orthopnea, PND, no palpitations, no syncope. PULMONARY: No shortness of breath, no cough, no hemoptysis. GASTROINTESTINAL: No diarrhea, no nausea, no vomiting, no abdominal pain. Normoactive bowel sounds. NEUROLOGICAL: No headaches, no weakness, no numbness. HEMATOLOGICAL: Denies any bleeding or petechiae. GENITOURINARY: Denies any burning micturition, frequency, or urgency. ENDOCRINE: Denies any polyuria or polydipsia. Medications: tylenol, ceftriaxone, dopamine, heparin drip, hydralazine, norco , dilaudid, novolog insulin , claritin , melatonin ,a narcan , zofran , protonix , sodium chloride iv fluid, and armour thyroid ( doses are noted ), heparin drip Objective - Vital Signs Vital signs: Vital Signs Temp 97.5 F L 10/10/17 12:00 Pulse 66 10/10/17 12:00 Resp 16 10/10/17 12:00 BP 150/65 10/10/17 12:00 Pulse Ox 92 L 10/10/17 12:00 Intake & Output 10/09/17 10/10/17 10/10/17 18:59 06:59 18:59 Intake Total 1473 351 Output Total 405 240 140 Balance 1068 -240 211 Weight 84.1 kg 83.7 kg Intake: IV 430 .9 200 Invasive Line 1 10 Invasive Line 2 20 Sodium Chloride 0.9% 1, 100 000 ml @ 50 mls/hr IV . Q20H JAMIE Rx#:[id number] Sodium Ferric Gluconat- 100 Sucrose 125 mg In Sodium Chloride 0.9% 100 ml @ 100 mls/hr IVPB DAILY JAMIE Rx#:[id number] Oral 1043 351 Output: Urine 405 Post Void Residual 240 140 Other: Voiding Method Bedside Commode Bedside Commode Bedside Commode Diaper Diaper Diaper Incontinent Incontinent Incontinent # Voids 0 2 1 # Bowel Movements 1 - Exam GENERAL: The patient is alert and oriented x3, not in any acute distress. Well developed, well nourished. HEENT: Pupils are round and equally reacting to light. EOMI. No scleral icterus. No conjunctival pallor. Normocephalic, atraumatic. No pharyngeal erythema. No thyromegaly. CARDIOVASCULAR: S1 and S2 present. No murmurs, rubs, or gallops. PULMONARY: Chest is clear to auscultation, no wheezing or crackles. ABDOMEN: Soft, nontender, nondistended, normoactive bowel sounds. No palpable organomegaly. MUSCULOSKELETAL: No joint swelling or deformity. EXTREMITIES: No cyanosis, clubbing, or pedal edema. -Left upper extremity numbness, no weakness is appreciated, however her movement to 6 dictated by painful surgical site of the pacemaker at left upper chest area to purple spots on the left fingers. We left radial pulse. No discoloration. No swelling. No obvious bleeding No weakness or abnormal discoloration is noted in the lower extremity on both sides NEUROLOGICAL: Gross neurological examination did not reveal any focal deficits. SKIN: No rashes. - Labs CBC & Chem 7: 10/10/17 10:46 10/10/17 05:49 Labs: Abnormal Lab Results - Last 24 Hours (Table) 10/09/17 10/09/17 10/09/17 Range/Units 15:27 18:30 21:18 RBC (3.80-5.40) m/uL Hgb (11.4-16.0) gm/dL Hct (34.0-46.0) % Lymphocytes # (1.0-4.8) k/uL Potassium 5.2 H (3.5-5.1) mmol/L Chloride (98-107) mmol/L BUN (7-17) mg/dL Creatinine (0.52-1.04) mg/dL POC Glucose (mg/dL) 146 H (75-99) mg/dL U Random Total Protein 93 H (<12) mg/dL 10/10/17 10/10/17 10/10/17 Range/Units 05:49 05:49 05:58 RBC 2.68 L (3.80-5.40) m/uL Hgb 7.7 L (11.4-16.0) gm/dL Hct 24.2 L (34.0-46.0) % Lymphocytes # (1.0-4.8) k/uL Potassium (3.5-5.1) mmol/L Chloride 111 H (98-107) mmol/L BUN 30 H (7-17) mg/dL Creatinine 1.70 H (0.52-1.04) mg/dL POC Glucose (mg/dL) 123 H (75-99) mg/dL U Random Total Protein (<12) mg/dL 10/10/17 10/10/17 Range/Units 10:46 11:32 RBC 2.79 L (3.80-5.40) m/uL Hgb 7.8 L (11.4-16.0) gm/dL Hct 25.0 L (34.0-46.0) % Lymphocytes # 0.9 L (1.0-4.8) k/uL Potassium (3.5-5.1) mmol/L Chloride (98-107) mmol/L BUN (7-17) mg/dL Creatinine (0.52-1.04) mg/dL POC Glucose (mg/dL) 159 H (75-99) mg/dL U Random Total Protein (<12) mg/dL Assessment and Plan Assessment: Acute left brachial artery thrombosis Bilateral numbness of the both lower extremities Syncope Bradycardia with pauses sick sinus syndrome UTI Anemia Hypertension Thyroid disorder Chronic bronchitis Urine incontinence Peripheral neuropathy Plan: Patient is an 81 years old female who presents because of syncope and bradycardia. Continue with same treatment. Continue same treatment treatment. Patient has acute left upper brachial artery thrombosis, vascular surgeon been consulted and patient is going for possible thrombectomy this afternoon. Patient was started on heparin drip. cardiology consult is appreciated , pt is s/p pacemaker for sick sinus syndrome. Patient is off dopamine and heparin drip as per cardiology recommendation, possible starting eliquis tomorrow . . Resume home medication. Continue with ceftriaxone, follow-up UC. Continue with gentle hydration. Continue with blood pressure medication. GI and DVT prophylaxis. We'll continue with IV fluids and nephrology consult is following the patient. Patient with anemia .FOBT: Pending, Iron and B12: Pending Further recommendations based on her clinical course. Patient have high potassium of 6.0, Kayexalate. Plus the insulin and bicarbonate by the nephrology team. Follow-up potassium level Renal ultrasound: Pending Prognosis guarded
[2017-10-10 16:58] LABS: Glucose,Whole Blood 128 mg/dL (75-99)
[2017-10-10] MEDS ORDERED: fentaNYL (PF) 50 MCG/ML 2 ML AMP ONE (18:25)
[2017-10-10] MEDS ORDERED: PHENYLEPHRINE-0.9% NACL SYG 1 MG/10 ML SYRINGE ONE (18:25)
[2017-10-10] MEDS ORDERED: IV FLUID CONTINUATION 1,000 ML IV ONE (18:25)
[2017-10-10] MEDS ORDERED: SUCCINYLCHOLINE CHLORIDE 100 MG/5 ML SYR IV ONE (18:25)
[2017-10-10] MEDS ORDERED: HEPARIN SODIUM,PORCINE 5,000 UNIT/ML 1 ML VIAL ONE (18:25)
[2017-10-10] MEDS ORDERED: PROPOFOL 10 MG/ML 20 ML VIAL IV ONE (18:25)
[2017-10-10] MEDS ORDERED: LIDOCAINE 1% INJ 10MG/ML (20 ML MDV) ONE (18:25)
[2017-10-10] MEDS ORDERED: HEPARIN SODIUM,PORCINE 10,000 UNIT in SODIUM CHLORIDE 0.9% 1,000 ML IRRIGATION ONE (18:32)
[2017-10-10] MEDS ORDERED: LIDOCAINE 2% INJ 20 MG/ML SQ ONE ×3 (18:33→18:48)
--- NOTE | 2017-10-10 19:27 | P.OP ---
Date of Procedure: 10/10/17 Preoperative Diagnosis: Embolic occlusion left brachial artery Postoperative Diagnosis: Same. Procedure(s) Performed: Left brachial artery embolectomy. Implants: None. Anesthesia: ALIZA Surgeon: Suraj Childs Estimated Blood Loss (ml): 5 Condition: stable Disposition: no change Indications for Procedure: Patient is an 81-year-old female who presented with multiple medical problems including atrial fibrillation. She required placement of a permanent transvenous pacemaker which was performed yesterday. Earlier today she began to complain of left hand numbness. Physical examination revealed absent brachial, radial and ulnar pulses in the left upper extremity. Duplex imaging demonstrated findings of arterial thrombus in the mid brachial artery. Patient is now offered embolectomy/thrombectomy. Operative Findings: Embolic occlusion left radial artery. Description of Procedure: Patient brought the upper and placed in the supine position and administered general endotracheal anesthesia delivered by the department anesthesiology. Since the left upper extremity sterilely prepped and draped in usual manner. Skin incision was made parallel with the brachial artery and carried down through the subcu change tissues at the level of the antecubital fossa. Hemostasis was achieved using electrocautery. Incision was deepened until the brachial artery was identified. The artery itself was pulseless. The artery was mobilized and encircled Vesseloops both proximally and distally. The patient had been on heparin intravenously administered which was discontinued in the preoperative area patient she was administered additional 2500 unit bolus of heparin. Vesseloops were drawn closed. Arteriotomy was made in the brachial artery. A 4-Kyrgyz Saab catheter was advanced 40 cm from the brachial artery into the subclavian. Thrombectomy was then performed. This produced a well organized thrombus with excellent pulsatile flow subsequently noted. Saab was advanced proximally one additional time with no thrombus/ embolus being produced. The artery was then flushed with heparinized saline solution. The Saab catheter was then passed distally. Good backbleeding was identified and no thrombus was retrieved. The artery was then closed with 6-0 Prolene suture placed in simple interrupted form. Just prior to complete closure of the arteriotomy line the artery was backbled and fore bled and no thrombus was retrieved in either situation. The anastomotic line was completed and flow restored across the anastomotic line. The anastomotic line was prostatic. A palpable radial pulse on the left was identified. The wound was then irrigated. Hemostasis was judged be adequate. Deep tissues were closed with 3-0 Vicryl. Dermis was closed with 4 Monocryl placed in running intradermal form. Proper dressings were applied. Patient tolerated procedure well and was taken to the recovery area satisfactory and stable condition.
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
[2017-10-10 19:46] LABS: Glucose,Whole Blood 131 mg/dL (75-99)
[2017-10-10 20:31] LABS: Glucose,Whole Blood 135 mg/dL (75-99)
[2017-10-10] MEDS: cefTRIAXone IN SWFI 1,000 MG/10 ML SYRINGE IVP SCH (20:44)
[2017-10-10] MEDS: MELATONIN 5 MG TABLET PO SCH (21:26)
[2017-10-10] MEDS: LORATADINE 10 MG TAB PO SCH (21:43)
[2017-10-11] MEDS: SODIUM CHLORIDE 0.9% 1,000 ML IV SCH (05:07)
[2017-10-11] MEDS: HEPARIN SOD,PORK IN 0.45% NACL 25,000 UNIT in 0.45% NACL 1 500ML.BAG IV SCH ×2 (05:10→11:59)
[2017-10-11] MEDS ORDERED: NON-FORMULARY DRUG (Cefuroxime Axetil [Ceftin] 500 MG) PO SCH (05:23)
[2017-10-11] MEDS ORDERED: DOCUSATE 100 MG CAP PO PRN (05:23)
[2017-10-11] MEDS: NON-FORMULARY DRUG (Cranberry Fruit Extract [Cranberry] 500 MG) PO SCH ×3 (05:55→21:46)
[2017-10-11] MEDS: NON-FORMULARY DRUG (Omega-3 Acid Ethyl Esters [Lovaza] 2 GM) PO SCH ×3 (05:56→21:49)
[2017-10-11 06:12] LABS: Glucose,Whole Blood 132 mg/dL (75-99)
[2017-10-11] MEDS: INSULIN ASPART 100 UNIT/ML 1 ML 10 ML VIAL SQ SCH ×4 (06:12→21:45)
[2017-10-11 06:42] LABS: Basophils % (A) 0 %; Eosinophils # (A) 0.4 k/uL (0-0.7); Eosinophils % (A) 4 %; HCT 24.6 % (34.0-46.0); HGB 7.8 gm/dL (11.4-16.0); Lymphocytes # (A) 1.4 k/uL (1.0-4.8); Lymphocytes % (A) 14 %; MCH 28.4 pg (25.0-35.0); MCHC 31.6 g/dL (31.0-37.0); MCV 90.1 fL (80.0-100.0); Mean Platelet Volume 7.1; Monocytes # (A) 0.7 k/uL (0-1.0); Monocytes % (A) 7 %; Neutrophils # (A) 7.2 k/uL (1.3-7.7); Neutrophils % (A) 73 %; Platelet Count 408 k/uL (150-450); RBC 2.73 m/uL (3.80-5.40); RDW 13.3 % (11.5-15.5); WBC 9.8 k/uL (3.8-10.6)
[2017-10-11 07:34] LABS: Phosphorus 3.7 mg/dL (2.5-4.5); Potassium 4.5 mmol/L (3.5-5.1)
[2017-10-11 07:36] LABS: Calcium 8.7 mg/dL (8.4-10.2)
[2017-10-11] MEDS: THYROID, PORK 30 MG TAB PO SCH (07:56)
[2017-10-11] MEDS: PANTOPRAZOLE 40 MG TABLET PO SCH (07:56)
[2017-10-11] MEDS: METOPROLOL TARTRATE 25 MG TAB PO SCH ×2 (07:56→21:48)
[2017-10-11] MEDS: hydrALAZINE HCL 25 MG TAB PO SCH (07:56)
--- NOTE | 2017-10-11 08:58 | P.PN ---
Subjective Patient is seen in follow-up for acute kidney injury. Creatinine peaked at 2.03 this admission and is down to 1.31 today. Patient presented with a near syncopal episode. She was hypotensive on admission with systolic blood pressure in the 70s. She had a pacemaker placed on October 08. She is off all vasopressors at this time. Denies vomiting or diarrhea. Admits to good urine output. Oral intake is fair. Vital signs are stable. General: The patient appeared well nourished and normally developed. HEENT: Head exam is unremarkable. Neck is without jugular venous distension. LUNGS: Lungs are clear to auscultation and percussion. Breath sounds decreased. HEART: Rate and Rhythm are regular. First and second heart sounds normal. No murmurs, rubs or gallops. ABDOMEN: Abdominal exam reveals normal bowel sounds. Non-tender and non- distended. No evidence of peritonitis. EXTREMITITES: No clubbing, cyanosis, or edema. Objective - Vital Signs Vital signs: Vital Signs Temp 97.8 F 10/10/17 19:32 Pulse 69 10/10/17 20:02 Resp 16 10/10/17 20:02 BP 168/84 10/10/17 20:02 Pulse Ox 99 10/10/17 20:02 Intake & Output 10/10/17 10/11/17 10/11/17 18:59 06:59 18:59 Intake Total 579.839 186.744 Output Total 230 Balance 349.839 186.744 Weight 86 kg Intake: IV 102 20 Intake, IV Titration 126.839 166.744 Amount Heparin Sod,Pork in 0.45% 126.839 166.744 NaCl 25,000 unit In 0.45 % NaCl 1 500ml.bag @ 12 UNITS/KG/HR 20.08 mls/hr IV .Q24H [facility] Rx#: [id number] Oral 351 Output: Post Void Residual 220 Estimated Blood Loss 10 Other: Voiding Method Bedside Commode Diaper Incontinent # Voids 1 - Labs CBC & Chem 7: 10/11/17 06:10 10/11/17 06:10 Labs: Abnormal Lab Results - Last 24 Hours (Table) 10/10/17 10/10/17 10/10/17 Range/Units 10:46 11:32 16:35 RBC 2.79 L (3.80-5.40) m/uL Hgb 7.8 L (11.4-16.0) gm/dL Hct 25.0 L (34.0-46.0) % Lymphocytes # 0.9 L (1.0-4.8) k/uL APTT (22.0-30.0) sec Chloride (98-107) mmol/L BUN (7-17) mg/dL Creatinine (0.52-1.04) mg/dL Glucose (74-99) mg/dL POC Glucose (mg/dL) 159 H 128 H (75-99) mg/dL 10/10/17 10/10/17 10/10/17 Range/Units 16:38 19:43 20:29 RBC (3.80-5.40) m/uL Hgb (11.4-16.0) gm/dL Hct (34.0-46.0) % Lymphocytes # (1.0-4.8) k/uL APTT 40.3 H (22.0-30.0) sec Chloride (98-107) mmol/L BUN (7-17) mg/dL Creatinine (0.52-1.04) mg/dL Glucose (74-99) mg/dL POC Glucose (mg/dL) 131 H 135 H (75-99) mg/dL 10/10/17 10/11/17 10/11/17 Range/Units 23:25 06:09 06:10 RBC 2.73 L (3.80-5.40) m/uL Hgb 7.8 L (11.4-16.0) gm/dL Hct 24.6 L (34.0-46.0) % Lymphocytes # (1.0-4.8) k/uL APTT 39.4 H (22.0-30.0) sec Chloride (98-107) mmol/L BUN (7-17) mg/dL Creatinine (0.52-1.04) mg/dL Glucose (74-99) mg/dL POC Glucose (mg/dL) 132 H (75-99) mg/dL 10/11/17 10/11/17 Range/Units 06:10 06:10 RBC (3.80-5.40) m/uL Hgb (11.4-16.0) gm/dL Hct (34.0-46.0) % Lymphocytes # (1.0-4.8) k/uL APTT 51.8 H (22.0-30.0) sec Chloride 111 H (98-107) mmol/L BUN 24 H (7-17) mg/dL Creatinine 1.31 H (0.52-1.04) mg/dL Glucose 108 H (74-99) mg/dL POC Glucose (mg/dL) (75-99) mg/dL Assessment and Plan Plan: Assessment: 1. Acute kidney injury secondary to ischemic ATN secondary to hypotension and hemodynamic instability. Creatinine peaked at 2.03 this admission and is down to 1.31 today. No evidence of hydronephrosis noted on renal ultrasound. 2. Rule out chronic kidney disease. Creatinine in 2015 was 0.6. In September 2017 her creatinine has been 1.11 at best. 3. Syncopal episode related to sick sinus syndrome. Status post pacemaker placement on October 08. 4. Anemia. Iron deficiency noted. 5. UTI maintained on IV Rocephin. Urine culture negative. 6. Hyperkalemia secondary to acute kidney injury and metabolic acidosis. Improved. 7. Metabolic acidosis secondary to acute kidney injury. Improved. 8. Proteinuria. Plan: Continue normal saline at 50 mL an hour. Ferrlecit 125 mg IV daily for 3 days. Third dose today. Avoid nephrotoxic agents and hypotensive episodes. Follow-up serologies - so far negative.
[2017-10-11] MEDS ORDERED: V C FORTE PO SCH (09:00)
[2017-10-11] MEDS ORDERED: [UNRECOGNIZED DRUG - OTHER] PO SCH (09:00)
[2017-10-11] MEDS ORDERED: [UNRECOGNIZED DRUG - OTHER] PO SCH (09:00)
[2017-10-11] MEDS ORDERED: ACAI BERRY EXTRACT PO SCH (09:00)
[2017-10-11] MEDS: SODIUM FERRIC GLUCONAT-SUCROSE 125 MG in SODIUM CHLORIDE 0.9% 100 ML IVPB SCH (10:44)
[2017-10-11] MEDS: ASCORBIC ACID 500 MG TAB PO SCH ×2 (10:45→23:30)
--- NOTE | 2017-10-11 11:12 | PN ---
PROGRESS NOTE Mrs. Perez is an 81-year-old female who presented with symptoms of dizziness and presyncope, was not noted to have sick sinus syndrome with long pauses an episode of atrial fibrillation, underwent permanent pacemaker implantation. Yesterday she had diminished pulse in the left radial, consistent with an embolic phenomenon, was found to have a brachial emboli. She underwent embolectomy performed by Dr. Childs. She is feeling well this morning. Her breathing is stable. She is denying any chest pain. No dizziness. No palpitation. She denies any nausea and continues to be in sinus mechanism. She continues to be on ceftriaxone, IV heparin, hydralazine 25 mg 3 times a day, metoprolol tartrate 25 mg twice a day and Synthroid. PHYSICAL EXAMINATION: Blood pressure running in the 140s into 170s with a heart rate in the 60s. LUNGS: Clear. HEART: Regular rate and rhythm, S1, S2. No S3 with systolic murmur. ABDOMEN: Soft, nontender. EXTREMITIES: No significant edema. Left radial pulse intact. Dressing in place. LAB DATA: Revealed BUN and creatinine 24 and 1.31, which has improved, hemoglobin of 7.8. IMPRESSION: 1. Sick sinus syndrome with long pauses and permanent pacemaker implantation. 2. Status post embolic phenomenon to the left brachial artery, status post embolectomy. 3. Renal failure improving. 4. Hypertension remains elevated. RECOMMENDATION: I will adjust the dose of her hydralazine. Continue on the rest of her medical regimen. Will initiate treatment with oral anticoagulation if it is agreeable with the supervision. Will obtain social organization professor consultation for placement. Depending on her progress, further recommendation will be made. Those findings were discussed with her son in detail. MMODL / IJN: [id number] /
[2017-10-11 11:40] LABS: Glucose,Whole Blood 140 mg/dL (75-99)
[2017-10-11] MEDS: APIXABAN 2.5 MG TABLET PO SCH ×2 (12:02→21:47)
[2017-10-11 13:25] VITALS: BMI 37.0
[2017-10-11 15:09] LABS: C-ANCA <1:20 Titer (<1:20); P-ANCA <1:20 Titer (<1:20)
[2017-10-11] MEDS: hydrALAZINE HCL 50 MG TAB PO SCH ×2 (15:12→23:00)
--- NOTE | 2017-10-11 16:15 | P.PN ---
Subjective Progress Note Date: 10/11/17 Principal diagnosis: Embolic occlusion left upper extremity. Admitted for sick sinus syndrome requiring recent of permanent pacemaker. Previous medical history of atrial fibrillation, diabetes, hypertension, hypothyroidism, anemia, previous tobacco dependence, and recent urinary tract infection. POD #2 single-chamber permanent pacemaker implantation, axillary venography POD #1 left brachial artery embolectomy Patient's currently laying in bed in no acute distress. Denies pain, shortness of breath. Has full functioning use of her left arm. Denies numbness or tingling. Objective - Vital Signs Vital signs: Vital Signs Temp 97.2 F L 10/11/17 11:28 Pulse 65 10/11/17 11:28 Resp 18 10/11/17 11:28 BP 178/80 10/11/17 11:28 Pulse Ox 95 10/11/17 11:28 Intake & Output 10/10/17 10/11/17 10/11/17 18:59 06:59 18:59 Intake Total 579.839 186.744 400 Output Total 230 Balance 349.839 186.744 400 Weight 86 kg 86 kg Intake: IV 102 20 100 .9 100 Intake, IV Titration 126.839 166.744 Amount Heparin Sod,Pork in 0.45% 126.839 166.744 NaCl 25,000 unit In 0.45 % NaCl 1 500ml.bag @ 12 UNITS/KG/HR 20.08 mls/hr IV .Q24H [facility] Rx#: [id number] Oral 351 300 Output: Post Void Residual 220 Estimated Blood Loss 10 Other: Voiding Method Bedside Commode Diaper Diaper Incontinent Incontinent # Voids 1 1 - Constitutional General appearance: Present: cooperative, no acute distress, obese - Respiratory Details: Lungs sounds clear bilaterally. Respirations even, nonlabored. Currently in 2 L nasal cannula with oxygen saturation 95%.. - Cardiovascular Details: S1, S2 present. Regular rate and rhythm, sinus rhythm on telemetry. Palpable peripheral pulses bilaterally. No edema present. No calf pain or tenderness noted. - Gastrointestinal Gastrointestinal Comment(s): Abdomen soft, nontender, nondistended. Active bowel sounds present 4 quadrants. Tolerating diet. - Genitourinary Genitourinary Comment(s): Continues to void clear, yellow urine. - Integumentary Integumentary Comment(s): Skin is warm and dry with evidence of good perfusion. Left anterior chest wall incision approximately, dry intact dressing. Left arm and hand pink with good cap refill. - Neurologic Neurologic: Present: CNII-XII intact - Musculoskeletal Musculoskeletal: Present: gait normal, strength equal bilaterally - Psychiatric Psychiatric: Present: A&O x's 3, appropriate affect, intact judgment & insight - Allied health notes Allied health notes reviewed: nursing - Labs CBC & Chem 7: 10/11/17 06:10 10/11/17 06:10 Labs: Abnormal Lab Results - Last 24 Hours (Table) 10/10/17 10/10/17 10/10/17 Range/Units 16:35 16:38 19:43 RBC (3.80-5.40) m/uL Hgb (11.4-16.0) gm/dL Hct (34.0-46.0) % APTT 40.3 H (22.0-30.0) sec Chloride (98-107) mmol/L BUN (7-17) mg/dL Creatinine (0.52-1.04) mg/dL Glucose (74-99) mg/dL POC Glucose (mg/dL) 128 H 131 H (75-99) mg/dL 10/10/17 10/10/17 10/11/17 Range/Units 20:29 23:25 06:09 RBC (3.80-5.40) m/uL Hgb (11.4-16.0) gm/dL Hct (34.0-46.0) % APTT 39.4 H (22.0-30.0) sec Chloride (98-107) mmol/L BUN (7-17) mg/dL Creatinine (0.52-1.04) mg/dL Glucose (74-99) mg/dL POC Glucose (mg/dL) 135 H 132 H (75-99) mg/dL 10/11/17 10/11/17 10/11/17 Range/Units 06:10 06:10 06:10 RBC 2.73 L (3.80-5.40) m/uL Hgb 7.8 L (11.4-16.0) gm/dL Hct 24.6 L (34.0-46.0) % APTT 51.8 H (22.0-30.0) sec Chloride 111 H (98-107) mmol/L BUN 24 H (7-17) mg/dL Creatinine 1.31 H (0.52-1.04) mg/dL Glucose 108 H (74-99) mg/dL POC Glucose (mg/dL) (75-99) mg/dL 10/11/17 Range/Units 11:33 RBC (3.80-5.40) m/uL Hgb (11.4-16.0) gm/dL Hct (34.0-46.0) % APTT (22.0-30.0) sec Chloride (98-107) mmol/L BUN (7-17) mg/dL Creatinine (0.52-1.04) mg/dL Glucose (74-99) mg/dL POC Glucose (mg/dL) 140 H (75-99) mg/dL Assessment and Plan Assessment: Embolic occlusion left upper extremity, status post embolectomy. Plan: The patient was seen and examined. She is in no distress at this time. She is able to wiggle her fingers, she has complete tactile sensation in her left hand , she has a palpable radial pulse, and her skin is warm and pink with good cap refill. Patient may be discharged from vascular standpoint when okay with primary care services. Time with Patient: Less than 30
[2017-10-11 16:21] LABS: Glucose,Whole Blood 145 mg/dL (75-99)
[2017-10-11] MEDS: cefTRIAXone IN SWFI 1,000 MG/10 ML SYRINGE IVP SCH (17:58)
--- NOTE | 2017-10-11 20:16 | P.PN ---
Subjective This is a pleasant 81 years old female with past medical history of diabetes mellitus, hypertension, thyroid disorder, vertigo, chronic bronchitis, urine incontinence, peripheral neuropathy, who presents because of syncope, patient states she blacked out twice 1 last week and one yesterday. Patient also complaining of from dizziness which is nonspecific comes and goes. No associated chest pain or nausea vomiting. Patient states she has infection in her urine and she is complaining of from leg cramps. On admission her creatinine is up at 1.8, compared to baseline of 1.1-1.2, patient looks dehydrated. 10/08/2017 pt was transferred to the ICU over night for sever bradycardia , she was started on dopamine drip. as per hosiery bagger pt has symptomatic pauses , pt mostly is with sick sinus syndrome , pt status post pacemaker placement on , pt was lying in bed and feels better. she remains on iv fluids and her cr is trending down to 1.6 , pt still has anemia , anemia work up is still on process , pt is on ceftiaxone for her urinary tract infection , and yesterday we gave her 2 gram as it is anticipated to have surgical intervention with pacemaker which iwas urgent/emergent. pt vitals are more stable currently and pt might be considered to be transfered to general medical floor 10/09/2017 Patient remains in the ICU, she is status post pacemaker placement for sick sinus syndrome and syncope. Blood pressures on normal high side. Metoprolol 25 twice a day is added Her creatinine went up from 1.6 TO 2.0. PATIENT IS STILL ON IV ANTIBIOTICS FOR UTI. k = 6.0, Kayexalate provided, follow-up potassium level. Urine culture: No growth 10/10/2017 Patient this morning after she took a shower she felt numbness in her left upper extremity, patient does not complain from weakness in her left upper extremity, however her movement of the left upper extremity is limited by pain from the surgical site of the left upper chest pacemaker. at that time she was evaluated by hosiery bagger Dr. Avina. There is weak radial pulse, arterial Doppler shows significant pressure gradient above the brachial on the left with a pressure of 170 on the right and 58 on the left at that radial level. Which is suspected for arterial thrombosis of the left upper extremity. Patient was a started on heparin drip and Vascular surgeon is been consulted, I discussed the case with the vascular surgeon on-call. Patient is going for possible embolectomy this afternoon. Later on patient complained from numbness of both lower extremities, arterial Doppler was ordered and the result is pending. Son is at bedside 10/11/2017 pt is s/p embelectomy yesterday , pt left UE nubness resolved, as well her LE numbness, her limbs are warm and with positive strong pulsation incluiding left radial pulse REVIEW OF SYSTEMS: CONSTITUTIONAL: No fever, no malaise, no fatigue. HEENT: No recent visual problems or hearing problems. Denied any sore throat. CARDIOVASCULAR: No orthopnea, PND, no palpitations, no syncope. PULMONARY: No shortness of breath, no cough, no hemoptysis. GASTROINTESTINAL: No diarrhea, no nausea, no vomiting, no abdominal pain. Normoactive bowel sounds. NEUROLOGICAL: No headaches, no weakness, no numbness. HEMATOLOGICAL: Denies any bleeding or petechiae. GENITOURINARY: Denies any burning micturition, frequency, or urgency. ENDOCRINE: Denies any polyuria or polydipsia. Medications: tylenol, ceftriaxone, dopamine, heparin drip, hydralazine, norco , dilaudid, novolog insulin , claritin , melatonin ,a narcan , zofran , protonix , sodium chloride iv fluid, and armour thyroid ( doses are noted ), heparin drip Objective - Vital Signs Vital signs: Vital Signs Temp 97.3 F L 10/11/17 16:00 Pulse 66 10/11/17 16:00 Resp 18 10/11/17 16:00 BP 176/78 10/11/17 16:00 Pulse Ox 93 L 10/11/17 16:00 Intake & Output 10/11/17 10/11/17 10/12/17 06:59 18:59 06:59 Intake Total 186.744 816 Balance 186.744 816 Weight 86 kg 86 kg Intake: IV 20 280 .9 180 Sodium Ferric Gluconat- 100 Sucrose 125 mg In Sodium Chloride 0.9% 100 ml @ 100 mls/hr IVPB DAILY [facility] Rx#:[id number] Intake, IV Titration 166.744 Amount Heparin Sod,Pork in 0.45% 166.744 NaCl 25,000 unit In 0.45 % NaCl 1 500ml.bag @ 12 UNITS/KG/HR 20.08 mls/hr IV .Q24H [facility] Rx#: [id number] Oral 536 Other: Voiding Method Diaper Incontinent # Voids 1 - Labs CBC & Chem 7: 10/11/17 06:10 10/11/17 06:10 Labs: Abnormal Lab Results - Last 24 Hours (Table) 10/10/17 10/10/17 10/11/17 Range/Units 20:29 23:25 06:09 RBC (3.80-5.40) m/uL Hgb (11.4-16.0) gm/dL Hct (34.0-46.0) % APTT 39.4 H (22.0-30.0) sec Chloride (98-107) mmol/L BUN (7-17) mg/dL Creatinine (0.52-1.04) mg/dL Glucose (74-99) mg/dL POC Glucose (mg/dL) 135 H 132 H (75-99) mg/dL 10/11/17 10/11/17 10/11/17 Range/Units 06:10 06:10 06:10 RBC 2.73 L (3.80-5.40) m/uL Hgb 7.8 L (11.4-16.0) gm/dL Hct 24.6 L (34.0-46.0) % APTT 51.8 H (22.0-30.0) sec Chloride 111 H (98-107) mmol/L BUN 24 H (7-17) mg/dL Creatinine 1.31 H (0.52-1.04) mg/dL Glucose 108 H (74-99) mg/dL POC Glucose (mg/dL) (75-99) mg/dL 10/11/17 10/11/17 Range/Units 11:33 16:17 RBC (3.80-5.40) m/uL Hgb (11.4-16.0) gm/dL Hct (34.0-46.0) % APTT (22.0-30.0) sec Chloride (98-107) mmol/L BUN (7-17) mg/dL Creatinine (0.52-1.04) mg/dL Glucose (74-99) mg/dL POC Glucose (mg/dL) 140 H 145 H (75-99) mg/dL Assessment and Plan Assessment: Acute left brachial artery thrombosis Bilateral numbness of the both lower extremities Syncope Bradycardia with pauses sick sinus syndrome UTI Anemia Hypertension Thyroid disorder Chronic bronchitis Urine incontinence Peripheral neuropathy Plan: Patient is an 81 years old female who presents because of syncope and bradycardia. Continue with same treatment. Continue same treatment treatment. Patient has acute left upper brachial artery thrombosis, vascular surgeon been consulted and patient is going for possible thrombectomy this afternoon. Patient was started on heparin drip. cardiology consult is appreciated , pt is s/p pacemaker for sick sinus syndrome. Patient is off dopamine and heparin drip as per cardiology recommendation, possible starting eliquis tomorrow . . Resume home medication. Continue with ceftriaxone, follow-up UC. Continue with gentle hydration. Continue with blood pressure medication. GI and DVT prophylaxis. We'll continue with IV fluids and nephrology consult is following the patient. Patient with anemia .FOBT: Pending, Iron and B12: Pending Further recommendations based on her clinical course. s/p left brachial embelectomy on 10/10/17, Plus the insulin and bicarbonate by the nephrology team. Follow-up potassium level Renal ultrasound: Pending Prognosis guarded
[2017-10-11 20:48] LABS: Glucose,Whole Blood 132 mg/dL (75-99)
[2017-10-11] MEDS: LORATADINE 10 MG TAB PO SCH (21:48)
[2017-10-11] MEDS: MELATONIN 5 MG TABLET PO SCH (21:48)
[2017-10-12 05:51] LABS: Glucose,Whole Blood 125 mg/dL (75-99)
[2017-10-12] MEDS: SODIUM CHLORIDE 0.9% 1,000 ML IV SCH (06:20)
[2017-10-12 06:31] LABS: Basophils # (A) 0.1 k/uL (0-0.2); Basophils % (A) 1 %; Eosinophils # (A) 0.4 k/uL (0-0.7); Eosinophils % (A) 4 %; HCT 24.3 % (34.0-46.0); HGB 7.4 gm/dL (11.4-16.0); Hypochromasia Slight; Lymphocytes # (A) 1.5 k/uL (1.0-4.8); Lymphocytes % (A) 16 %; MCH 27.6 pg (25.0-35.0); MCHC 30.3 g/dL (31.0-37.0); Mean Platelet Volume 7.3; Monocytes # (A) 0.6 k/uL (0-1.0); Monocytes % (A) 7 %; Neutrophils # (A) 6.4 k/uL (1.3-7.7); Neutrophils % (A) 70 %; Platelet Count 427 k/uL (150-450); RBC 2.67 m/uL (3.80-5.40); RDW 13.3 % (11.5-15.5); WBC 9.2 k/uL (3.8-10.6)
[2017-10-12 06:50] LABS: Calcium 8.7 mg/dL (8.4-10.2); Potassium 4.3 mmol/L (3.5-5.1)
--- NOTE | 2017-10-12 08:02 | P.PN ---
Subjective Patient is seen in follow-up for acute kidney injury. Creatinine peaked at 2.03 this admission and is down to 1.12 today. Patient presented with a near syncopal episode. She was hypotensive on admission with systolic blood pressure in the 70s. She had a pacemaker placed on October 08. She is off all vasopressors at this time. Denies vomiting or diarrhea. Admits to good urine output. Oral intake is fair. Vital signs are stable. General: The patient appeared well nourished and normally developed. HEENT: Head exam is unremarkable. Neck is without jugular venous distension. LUNGS: Lungs are clear to auscultation and percussion. Breath sounds decreased. HEART: Rate and Rhythm are regular. First and second heart sounds normal. No murmurs, rubs or gallops. ABDOMEN: Abdominal exam reveals normal bowel sounds. Non-tender and non- distended. No evidence of peritonitis. EXTREMITITES: No clubbing, cyanosis, or edema. Objective - Vital Signs Vital signs: Vital Signs Temp 99.7 F H 10/12/17 04:00 Pulse 66 10/12/17 04:00 Resp 18 10/12/17 04:00 BP 143/66 10/12/17 04:00 Pulse Ox 95 10/12/17 04:00 Intake & Output 10/11/17 10/12/17 10/12/17 18:59 06:59 18:59 Intake Total 816 Output Total 225 Balance 816 -225 Weight 86 kg 82.5 kg Intake: IV 280 .9 180 Sodium Ferric Gluconat- 100 Sucrose 125 mg In Sodium Chloride 0.9% 100 ml @ 100 mls/hr IVPB DAILY [facility] Rx#:[id number] Oral 536 Output: Urine 225 Other: Voiding Method Diaper Diaper Incontinent Incontinent # Voids 1 1 - Labs CBC & Chem 7: 10/12/17 05:46 10/12/17 05:46 Labs: Abnormal Lab Results - Last 24 Hours (Table) 10/11/17 10/11/17 10/11/17 Range/Units 11:33 16:17 20:47 RBC (3.80-5.40) m/uL Hgb (11.4-16.0) gm/dL Hct (34.0-46.0) % MCHC (31.0-37.0) g/dL Chloride (98-107) mmol/L BUN (7-17) mg/dL Creatinine (0.52-1.04) mg/dL Glucose (74-99) mg/dL POC Glucose (mg/dL) 140 H 145 H 132 H (75-99) mg/dL 10/12/17 10/12/17 10/12/17 Range/Units 05:46 05:46 05:50 RBC 2.67 L (3.80-5.40) m/uL Hgb 7.4 L (11.4-16.0) gm/dL Hct 24.3 L (34.0-46.0) % MCHC 30.3 L (31.0-37.0) g/dL Chloride 108 H (98-107) mmol/L BUN 19 H (7-17) mg/dL Creatinine 1.12 H (0.52-1.04) mg/dL Glucose 102 H (74-99) mg/dL POC Glucose (mg/dL) 125 H (75-99) mg/dL Assessment and Plan Plan: Assessment: 1. Acute kidney injury secondary to ischemic ATN secondary to hypotension and hemodynamic instability. Creatinine peaked at 2.03 this admission and is down to 1.12 today. No evidence of hydronephrosis noted on renal ultrasound. 2. Rule out chronic kidney disease. Creatinine in 2016 was 0.6. In September 2017 her creatinine has been 1.11 at best. 3. Syncopal episode related to sick sinus syndrome. Status post pacemaker placement on October 08. 4. Anemia. Iron deficiency noted - status post 3 doses of IV iron. 5. UTI maintained on IV Rocephin. Urine culture negative. 6. Hyperkalemia secondary to acute kidney injury and metabolic acidosis. Improved. 7. Metabolic acidosis secondary to acute kidney injury. Improved. 8. Proteinuria. Can be nonspecific in the setting of acute kidney injury. Serologies negative so far. Will reevaluate outpatient once GFR returns to baseline. 9. Benign hypertension. Blood pressures on the higher side. Plan: Hep-Lock IV fluids. Avoid nephrotoxic agents and hypotensive episodes. Add amlodipine 5 mg once daily. Stable for discharge to rehab from nephrology standpoint. She will need to follow-up as an outpatient in the next 2 weeks.
[2017-10-12] MEDS: INSULIN ASPART 100 UNIT/ML 1 ML 10 ML VIAL SQ SCH ×4 (08:29→23:04)
[2017-10-12] MEDS: THYROID, PORK 30 MG TAB PO SCH (09:21)
[2017-10-12] MEDS: SODIUM FERRIC GLUCONAT-SUCROSE 125 MG in SODIUM CHLORIDE 0.9% 100 ML IVPB SCH (09:21)
[2017-10-12] MEDS: PANTOPRAZOLE 40 MG TABLET PO SCH (09:22)
[2017-10-12] MEDS: ASCORBIC ACID 500 MG TAB PO SCH ×2 (09:22→21:21)
[2017-10-12] MEDS: hydrALAZINE HCL 50 MG TAB PO SCH ×3 (09:22→23:05)
[2017-10-12] MEDS: amLODIPine 5 MG TAB PO SCH (09:22)
[2017-10-12] MEDS: METOPROLOL TARTRATE 25 MG TAB PO SCH ×2 (09:22→21:21)
[2017-10-12] MEDS: APIXABAN 2.5 MG TABLET PO SCH ×2 (09:22→21:20)
[2017-10-12 11:56] LABS: Glucose,Whole Blood 134 mg/dL (75-99)
--- NOTE | 2017-10-12 13:36 | PN ---
PROGRESS NOTE Mrs. Perez is an 81-year-old female who presented with an episode of dizziness and syncope, was found to have sick sinus syndrome with long pauses underwent permanent pacemaker implantation. Subsequent to that, she had an embolic phenomenon to the left brachial artery and underwent embolectomy. She is feeling well today. She has no further dizziness. No chest pain. Her hand feels better. She denies any palpitation or syncope. On her monitor she continued to be in sinus mechanism. She is concerned about her ability to go home and live by herself. She continues to be at this time on amlodipine 5 mg daily, Eliquis 2.5 mg twice a day, hydralazine 50 mg 3 times a day, metoprolol tartrate 25 mg twice a day, and Synthroid. PHYSICAL EXAMINATION: Her blood pressure remains elevated in the 170/80 with the heart rate in the 60s. LUNGS: Clear. HEART: Regular rate and rhythm. S1, S2. No S3 with systolic ejection murmur. No diastolic murmur. ABDOMEN: Soft, nontender. EXTREMITIES: No significant edema. LAB DATA: Lab data revealed a creatinine of 1.12 and BUN of 19, much improved compared to prior numbers. Potassium 4.3. Her hemoglobin is 7.4. IMPRESSION: 1. Sick sinus syndrome with long pauses, status post permanent pacemaker implantation. 2. Atrial fibrillation, anticoagulated. 3. Hypertension. 4. Embolic phenomenon to the left upper extremity, status post embolectomy. 5. Renal failure, improving. RECOMMENDATION: We will continue present therapy. I will add to her regimen hydrochlorothiazide to see if that will help her blood pressure. We will follow her renal function closely and depending on her progress, further recommendation will be made. Evaluation for group home is in progress. MMODL / IJN: [id number] /
[2017-10-12 13:56] LABS: Protein, Total 5.5 g/dL (6.2-8.2)
[2017-10-12] MEDS: HYDROCHLOROTHIAZIDE 25 MG TAB PO SCH (16:30)
[2017-10-12 17:11] LABS: Glucose,Whole Blood 145 mg/dL (75-99)
[2017-10-12] MEDS: cefTRIAXone IN SWFI 1,000 MG/10 ML SYRINGE IVP SCH (17:42)
[2017-10-12 20:57] LABS: Glucose,Whole Blood 124 mg/dL (75-99)
[2017-10-12] MEDS: MELATONIN 5 MG TABLET PO SCH (21:21)
[2017-10-12] MEDS: LORATADINE 10 MG TAB PO SCH (21:21)
--- NOTE | 2017-10-12 23:52 | P.PN ---
Subjective This is a pleasant 81 years old female with past medical history of diabetes mellitus, hypertension, thyroid disorder, vertigo, chronic bronchitis, urine incontinence, peripheral neuropathy, who presents because of syncope, patient states she blacked out twice 1 last week and one yesterday. Patient also complaining of from dizziness which is nonspecific comes and goes. No associated chest pain or nausea vomiting. Patient states she has infection in her urine and she is complaining of from leg cramps. On admission her creatinine is up at 1.8, compared to baseline of 1.1-1.2, patient looks dehydrated. 10/08/2017 pt was transferred to the ICU over night for sever bradycardia , she was started on dopamine drip. as per assistant operations manager pt has symptomatic pauses , pt mostly is with sick sinus syndrome , pt status post pacemaker placement on , pt was lying in bed and feels better. she remains on iv fluids and her cr is trending down to 1.6 , pt still has anemia , anemia work up is still on process , pt is on ceftiaxone for her urinary tract infection , and yesterday we gave her 2 gram as it is anticipated to have surgical intervention with pacemaker which iwas urgent/emergent. pt vitals are more stable currently and pt might be considered to be transfered to general medical floor 10/09/2017 Patient remains in the ICU, she is status post pacemaker placement for sick sinus syndrome and syncope. Blood pressures on normal high side. Metoprolol 25 twice a day is added Her creatinine went up from 1.6 TO 2.0. PATIENT IS STILL ON IV ANTIBIOTICS FOR UTI. k = 6.0, Kayexalate provided, follow-up potassium level. Urine culture: No growth 10/10/2017 Patient this morning after she took a shower she felt numbness in her left upper extremity, patient does not complain from weakness in her left upper extremity, however her movement of the left upper extremity is limited by pain from the surgical site of the left upper chest pacemaker. at that time she was evaluated by assistant operations manager Dr. Avina. There is weak radial pulse, arterial Doppler shows significant pressure gradient above the brachial on the left with a pressure of 170 on the right and 58 on the left at that radial level. Which is suspected for arterial thrombosis of the left upper extremity. Patient was a started on heparin drip and Vascular surgeon is been consulted, I discussed the case with the vascular surgeon on-call. Patient is going for possible embolectomy this afternoon. Later on patient complained from numbness of both lower extremities, arterial Doppler was ordered and the result is pending. Son is at bedside 10/11/2017 pt is s/p embelectomy yesterday , pt left UE nubness resolved, as well her LE numbness, her limbs are warm and with positive strong pulsation incluiding left radial pulse 10/12/2017 pt is too weak to go home , recommended subacute rehab and pt and family are accepting , sw on the case , pt is with [facility] , we called GI consult REVIEW OF SYSTEMS: CONSTITUTIONAL: No fever, no malaise, no fatigue. HEENT: No recent visual problems or hearing problems. Denied any sore throat. CARDIOVASCULAR: No orthopnea, PND, no palpitations, no syncope. PULMONARY: No shortness of breath, no cough, no hemoptysis. GASTROINTESTINAL: No diarrhea, no nausea, no vomiting, no abdominal pain. Normoactive bowel sounds. NEUROLOGICAL: No headaches, no weakness, no numbness. HEMATOLOGICAL: Denies any bleeding or petechiae. GENITOURINARY: Denies any burning micturition, frequency, or urgency. ENDOCRINE: Denies any polyuria or polydipsia. Medications: tylenol, ceftriaxone, dopamine, heparin drip, hydralazine, norco , dilaudid, novolog insulin , claritin , melatonin ,a narcan , zofran , protonix , sodium chloride iv fluid, and armour thyroid ( doses are noted ), heparin drip Objective - Vital Signs Vital signs: Vital Signs Temp 97.8 F 10/12/17 16:25 Pulse 60 10/12/17 16:25 Resp 16 10/12/17 16:25 BP 158/76 10/12/17 16:25 Pulse Ox 91 L 10/12/17 16:25 Intake & Output 10/12/17 10/12/17 10/13/17 06:59 18:59 06:59 Intake Total 720 Output Total 225 Balance -225 720 Weight 82.5 kg Intake: Oral 720 Output: Urine 225 Other: Voiding Method Diaper Diaper Incontinent Incontinent # Voids 1 1 # Bowel Movements 0 - Exam GENERAL: The patient is alert and oriented x3, not in any acute distress. Well developed, well nourished. HEENT: Pupils are round and equally reacting to light. EOMI. No scleral icterus. No conjunctival pallor. Normocephalic, atraumatic. No pharyngeal erythema. No thyromegaly. CARDIOVASCULAR: S1 and S2 present. No murmurs, rubs, or gallops. PULMONARY: Chest is clear to auscultation, no wheezing or crackles. ABDOMEN: Soft, nontender, nondistended, normoactive bowel sounds. No palpable organomegaly. MUSCULOSKELETAL: No joint swelling or deformity. EXTREMITIES: No cyanosis, clubbing, or pedal edema. -Left upper extremity numbness, no weakness is appreciated, however her movement to 6 dictated by painful surgical site of the pacemaker at left upper chest area to purple spots on the left fingers. We left radial pulse. No discoloration. No swelling. No obvious bleeding No weakness or abnormal discoloration is noted in the lower extremity on both sides NEUROLOGICAL: Gross neurological examination did not reveal any focal deficits. SKIN: No rashes. - Labs CBC & Chem 7: 10/12/17 05:46 10/12/17 05:46 Labs: Abnormal Lab Results - Last 24 Hours (Table) 10/09/17 10/12/17 10/12/17 Range/Units 19:45 05:46 05:46 RBC 2.67 L (3.80-5.40) m/uL Hgb 7.4 L (11.4-16.0) gm/dL Hct 24.3 L (34.0-46.0) % MCHC 30.3 L (31.0-37.0) g/dL Chloride 108 H (98-107) mmol/L BUN 19 H (7-17) mg/dL Creatinine 1.12 H (0.52-1.04) mg/dL Glucose 102 H (74-99) mg/dL POC Glucose (mg/dL) (75-99) mg/dL Total Protein (PEP) 5.5 L (6.2-8.2) g/dL 10/12/17 10/12/17 10/12/17 Range/Units 05:50 11:30 16:52 RBC (3.80-5.40) m/uL Hgb (11.4-16.0) gm/dL Hct (34.0-46.0) % MCHC (31.0-37.0) g/dL Chloride (98-107) mmol/L BUN (7-17) mg/dL Creatinine (0.52-1.04) mg/dL Glucose (74-99) mg/dL POC Glucose (mg/dL) 125 H 134 H 145 H (75-99) mg/dL Total Protein (PEP) (6.2-8.2) g/dL 10/12/17 Range/Units 20:56 RBC (3.80-5.40) m/uL Hgb (11.4-16.0) gm/dL Hct (34.0-46.0) % MCHC (31.0-37.0) g/dL Chloride (98-107) mmol/L BUN (7-17) mg/dL Creatinine (0.52-1.04) mg/dL Glucose (74-99) mg/dL POC Glucose (mg/dL) 124 H (75-99) mg/dL Total Protein (PEP) (6.2-8.2) g/dL Assessment and Plan Assessment: Acute left brachial artery thrombosis Bilateral numbness of the both lower extremities Syncope Bradycardia with pauses sick sinus syndrome UTI Anemia Hypertension Thyroid disorder Chronic bronchitis Urine incontinence Peripheral neuropathy [facility] Plan: Patient is an 81 years old female who presents because of syncope and bradycardia. Continue with same treatment. Continue same treatment treatment. Patient has acute left upper brachial artery thrombosis, vascular surgeon been consulted and patient is going for possible thrombectomy this afternoon. Patient was started on heparin drip. cardiology consult is appreciated , pt is s/p pacemaker for sick sinus syndrome. Patient is off dopamine and heparin drip as per cardiology recommendation, possible starting eliquis tomorrow . . Resume home medication. Continue with ceftriaxone, follow-up UC. Continue with gentle hydration. Continue with blood pressure medication. GI and DVT prophylaxis. We'll continue with IV fluids and nephrology consult is following the patient. Patient with anemia .FOBT: Pending, Iron and B12: Pending Further recommendations based on her clinical course. s/p left brachial embelectomy on 10/10/17, Plus the insulin and bicarbonate by the nephrology team. Follow-up potassium level Renal ultrasound: Pending call GI consult : pending Prognosis guarded plan for [facility]
[2017-10-13 05:47] LABS: Glucose,Whole Blood 126 mg/dL (75-99)
[2017-10-13 06:49] LABS: Basophils % (A) 0 %; Eosinophils # (A) 0.5 k/uL (0-0.7); Eosinophils % (A) 6 %; HCT 25.6 % (34.0-46.0); HGB 7.9 gm/dL (11.4-16.0); Lymphocytes # (A) 1.4 k/uL (1.0-4.8); Lymphocytes % (A) 16 %; MCH 27.8 pg (25.0-35.0); MCHC 30.9 g/dL (31.0-37.0); MCV 90.2 fL (80.0-100.0); Mean Platelet Volume 7.4; Monocytes # (A) 0.5 k/uL (0-1.0); Monocytes % (A) 6 %; Neutrophils # (A) 6.3 k/uL (1.3-7.7); Neutrophils % (A) 71 %; Platelet Count 452 k/uL (150-450); RBC 2.84 m/uL (3.80-5.40); RDW 13.3 % (11.5-15.5); WBC 8.9 k/uL (3.8-10.6)
[2017-10-13 07:16] LABS: Calcium 9.1 mg/dL (8.4-10.2); Potassium 4.7 mmol/L (3.5-5.1)
[2017-10-13] MEDS: INSULIN ASPART 100 UNIT/ML 1 ML 10 ML VIAL SQ SCH ×4 (09:24→22:00)
[2017-10-13] MEDS: hydrALAZINE HCL 50 MG TAB PO SCH ×2 (09:44→15:42)
[2017-10-13] MEDS: HYDROCHLOROTHIAZIDE 25 MG TAB PO SCH (09:44)
[2017-10-13] MEDS: THYROID, PORK 30 MG TAB PO SCH (09:44)
[2017-10-13] MEDS: APIXABAN 2.5 MG TABLET PO SCH (09:44)
[2017-10-13] MEDS: amLODIPine 5 MG TAB PO SCH (09:44)
[2017-10-13] MEDS: ASCORBIC ACID 500 MG TAB PO SCH (09:45)
[2017-10-13] MEDS: METOPROLOL TARTRATE 25 MG TAB PO SCH (09:45)
[2017-10-13] MEDS: PANTOPRAZOLE 40 MG TABLET PO SCH (09:45)
--- NOTE | 2017-10-13 10:13 | P.PN ---
Subjective Progress Note Date: 10/13/17 Principal diagnosis: Left brachial embolus Patient still feels some numbness in the left arm from her recent events. She is otherwise doing well. Objective - Vital Signs Vital signs: Vital Signs Temp 98.5 F 10/13/17 04:00 Pulse 61 10/13/17 04:00 Resp 18 10/13/17 04:00 BP 186/79 10/13/17 04:00 Pulse Ox 95 10/13/17 04:00 Intake & Output 10/12/17 10/13/17 10/13/17 18:59 06:59 18:59 Intake Total 720 Balance 720 Weight 83 kg Intake: Oral 720 Other: Voiding Method Diaper Diaper Incontinent Incontinent # Voids 1 2 # Bowel Movements 0 - Exam Left hand and arm are warm. Incision dressing clean and dry. - Labs CBC & Chem 7: 10/13/17 05:55 10/13/17 05:55 Labs: Abnormal Lab Results - Last 24 Hours (Table) 10/09/17 10/12/17 10/12/17 Range/Units 19:45 11:30 16:52 RBC (3.80-5.40) m/uL Hgb (11.4-16.0) gm/dL Hct (34.0-46.0) % MCHC (31.0-37.0) g/dL Plt Count (150-450) k/uL BUN (7-17) mg/dL Glucose (74-99) mg/dL POC Glucose (mg/dL) 134 H 145 H (75-99) mg/dL Total Protein (PEP) 5.5 L (6.2-8.2) g/dL 10/12/17 10/13/17 10/13/17 Range/Units 20:56 05:45 05:55 RBC 2.84 L (3.80-5.40) m/uL Hgb 7.9 L (11.4-16.0) gm/dL Hct 25.6 L (34.0-46.0) % MCHC 30.9 L (31.0-37.0) g/dL Plt Count 452 H (150-450) k/uL BUN (7-17) mg/dL Glucose (74-99) mg/dL POC Glucose (mg/dL) 124 H 126 H (75-99) mg/dL Total Protein (PEP) (6.2-8.2) g/dL 10/13/17 Range/Units 05:55 RBC (3.80-5.40) m/uL Hgb (11.4-16.0) gm/dL Hct (34.0-46.0) % MCHC (31.0-37.0) g/dL Plt Count (150-450) k/uL BUN 20 H (7-17) mg/dL Glucose 103 H (74-99) mg/dL POC Glucose (mg/dL) (75-99) mg/dL Total Protein (PEP) (6.2-8.2) g/dL Assessment and Plan (1) Embolus of brachial artery Current Visit: Yes Status: Acute Code(s): I74.2 - EMBOLISM AND THROMBOSIS OF ARTERIES OF THE UPPER EXTREMITIES SNOMED Code(s): 096506567 Plan: Patient is recovering nicely from her brachial embolectomy. She can be discharged once deemed otherwise medically stable by medicine and cardiology. Dr. Childs will follow-up in the office in a couple of weeks.
--- NOTE | 2017-10-13 11:29 | CONS ---
CONSULTATION DATE OF SERVICE: 10/13/2017 REASON FOR CONSULTATION: Anemia. HISTORY OF PRESENT ILLNESS: The patient is an 81-year-old pleasant white female who was admitted to the hospital with longstanding history of diabetes mellitus, hypertension, hyperlipidemia, was admitted to THE hospital because of syncope and subsequently was diagnosed with sick sinus syndrome. She underwent a pacemaker implantation by Cardiology. 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 While in the hospital, she was noted to have low hemoglobin and hence we are consulted in regards to this issue. On review of her records, her hemoglobin has been in the range of 9 at the time of admission to the hospital and over the last 4 or 5 days it has been around between 7 and 8 g/dL. She denies any abdominal pain. She complains of some nausea but no emesis. Denies any rectal bleeding or melena. She underwent thrombectomy, embolectomy 2 days ago and she is complaining of some numbness in the left upper arm area. PAST MEDICAL HISTORY: Significant for hypertension, hyperlipidemia, diabetes mellitus, hypothyroidism, degenerative joint disease, vertigo. PAST SURGICAL HISTORY: Appendectomy, cholecystectomy, tonsillectomy, exploratory laparoscopy, colonoscopy many years ago, recent pacemaker implantation 5 days ago, thrombectomy 3 days ago. MEDICATIONS: At home include hydralazine, omeprazole, Ceftin, Norvasc, Colace, Lovaza, melatonin, Claritin, vitamin C. FAMILY HISTORY: Father had coronary artery disease. Mother had coronary artery disease. REVIEW OF SYSTEMS: CARDIOPULMONARY: She denies any chest pain, shortness of breath and no dysuria, hematuria. MUSCULOSKELETAL: She complains of left upper arm numbness and no back pain. NEUROLOGY: Unremarkable. PSYCHIATRIC: Unremarkable. ENT: Vision unremarkable. CARDIAC: As mentioned above. ENT: Vision unremarkable. CONSTITUTIONAL: No recent weight loss. No fever, chills, night sweats. PHYSICAL EXAMINATION: She appears comfortable, in no apparent distress. Vital signs are stable. Blood pressure is 189/79, pulse rate 66, temperature 97. HEENT EXAMINATION: Unremarkable conjunctivae, sclerae nonicteric, oral cavity no lesions. NECK: No JVD. No lymph node enlargement. Chest was clear to auscultation. HEART: Regular rate and rhythm. ABDOMEN: Soft, it was nontender, nondistended. Liver and spleen are not palpable. Bowel sounds are positive. No organomegaly. EXTREMITIES: No pedal edema. SKIN: No rashes. NEURO: Alert and oriented x3. No focal deficits. LABS: From today, WBC is 8.9, hemoglobin 7.9, platelets of 452. BUN and creatinine are within normal limits. On 10/09, hemoglobin is 7.7. IMPRESSION: This is a lady who was admitted to the hospital with syncope. Subsequently diagnosed with sick sinus syndrome and underwent pacemaker implantation 5 days ago. This was complicated by left subclavian vein thrombosis for which she underwent embolectomy 2 days ago. While in the hospital, was noted to have anemia with a hemoglobin in the range of 7- 8 g/dL which was normocytic. Clinically, she does not have any evidence of active ongoing bleeding and stool Hemoccult was negative. Anemia could be multifactorial in etiology and she may have a component of occult gastrointestinal blood loss. RECOMMENDATION: Since the patient does not have any active ongoing bleeding and her hemoglobin remained stable in the 7 range, will continue to watch her closely. I will obtain iron studies, TIBC, ferritin, reticulocyte count and vitamin B12 status. If this represents an iron deficiency anemia, she can have endoscopy workup on outpatient. For now, will follow her closely during the hospital stay. Thank you for this consultation. MMODL / IJN: [id number] /
[2017-10-13 11:32] LABS: Glucose,Whole Blood 165 mg/dL (75-99)
[2017-10-13] MEDS ORDERED: amLODIPine 5 MG TAB PO STA (12:41)
--- NOTE | 2017-10-13 12:59 | PN ---
PROGRESS NOTE Mrs. Perez is an 81-year-old female who presented with evidence of syncope and presyncope associated with sick sinus syndrome and long pauses. She underwent permanent pacemaker implantation. Subsequently, she had an embolic phenomenon to the left brachial artery and underwent embolectomy. She is doing well this morning. Her breathing has been stable. She is denying any dizziness. No palpitation. She denies any nausea. She is feeling stronger. MEDICATION: Include amlodipine 5 mg daily, Eliquis 2.5 mg twice a day, hydralazine 50 mg 3 times a day, hydrochlorothiazide 25 mg daily, metoprolol tartrate 25 mg twice a day. PHYSICAL EXAMINATION: Blood pressure remains elevated in the 180 range with a heart rate in the 60s. LUNGS: Clear. HEART: Regular rate and rhythm. S1, S2. No S3. No rub. ABDOMEN: Soft, nontender. EXTREMITIES: No edema. Left arm warm. LAB DATA: Lab data revealed BUN and creatinine of 20 and 0.9 and her hemoglobin is 7.9. IMPRESSION: 1. Sick sinus syndrome with long pauses and permanent pacemaker implantation. 2. Paroxysmal atrial fibrillation, anticoagulated. 3. Hypertension, remains elevated. 4. Renal failure, improved. RECOMMENDATION: I will increase the dose of her amlodipine and if her blood pressure remains elevated, then I will add to her regimen an MARK inhibitor. She will continue to increase her level activity and the plan is to go to her [facility]. MMODL / IJN: [id number] /
[2017-10-13] MEDS: LISINOPRIL 5 MG TAB PO SCH (13:09)
[2017-10-13 16:59] LABS: Glucose,Whole Blood 149 mg/dL (75-99)
[2017-10-13] MEDS: cefTRIAXone IN SWFI 1,000 MG/10 ML SYRINGE IVP SCH (17:56)
[2017-10-13 20:39] LABS: Glucose,Whole Blood 139 mg/dL (75-99)
--- NOTE | 2017-10-13 20:53 | P.PN ---
Subjective This is a pleasant 81 years old female with past medical history of diabetes mellitus, hypertension, thyroid disorder, vertigo, chronic bronchitis, urine incontinence, peripheral neuropathy, who presents because of syncope, patient states she blacked out twice 1 last week and one yesterday. Patient also complaining of from dizziness which is nonspecific comes and goes. No associated chest pain or nausea vomiting. Patient states she has infection in her urine and she is complaining of from leg cramps. On admission her creatinine is up at 1.8, compared to baseline of 1.1-1.2, patient looks dehydrated. 10/08/2017 pt was transferred to the ICU over night for sever bradycardia , she was started on dopamine drip. as per oxygen equipment technician pt has symptomatic pauses , pt mostly is with sick sinus syndrome , pt status post pacemaker placement on , pt was lying in bed and feels better. she remains on iv fluids and her cr is trending down to 1.6 , pt still has anemia , anemia work up is still on process , pt is on ceftiaxone for her urinary tract infection , and yesterday we gave her 2 gram as it is anticipated to have surgical intervention with pacemaker which iwas urgent/emergent. pt vitals are more stable currently and pt might be considered to be transfered to general medical floor 10/09/2017 Patient remains in the ICU, she is status post pacemaker placement for sick sinus syndrome and syncope. Blood pressures on normal high side. Metoprolol 25 twice a day is added Her creatinine went up from 1.6 TO 2.0. PATIENT IS STILL ON IV ANTIBIOTICS FOR UTI. k = 6.0, Kayexalate provided, follow-up potassium level. Urine culture: No growth 10/10/2017 Patient this morning after she took a shower she felt numbness in her left upper extremity, patient does not complain from weakness in her left upper extremity, however her movement of the left upper extremity is limited by pain from the surgical site of the left upper chest pacemaker. at that time she was evaluated by oxygen equipment technician Dr. Avina. There is weak radial pulse, arterial Doppler shows significant pressure gradient above the brachial on the left with a pressure of 170 on the right and 58 on the left at that radial level. Which is suspected for arterial thrombosis of the left upper extremity. Patient was a started on heparin drip and Vascular surgeon is been consulted, I discussed the case with the vascular surgeon on-call. Patient is going for possible embolectomy this afternoon. Later on patient complained from numbness of both lower extremities, arterial Doppler was ordered and the result is pending. Son is at bedside 10/11/2017 pt is s/p embelectomy yesterday , pt left UE nubness resolved, as well her LE numbness, her limbs are warm and with positive strong pulsation incluiding left radial pulse 10/12/2017 pt is too weak to go home , recommended subacute rehab and pt and family are accepting , sw on the case , pt is with [facility] , we called GI consult 10/13/2017 pt is with [facility], GI evaluation is appreciated , they recommended outpt workup and possible scope, discussed with the pt and son at bed side , son confirmed me he will f/u and he will call and make appointment as recommended in 1 or 2 week , and he agrees. pt has some numbness in her left hand from recent thromboctomy, recommended PT/OT evaluation REVIEW OF SYSTEMS: CONSTITUTIONAL: No fever, no malaise, no fatigue. HEENT: No recent visual problems or hearing problems. Denied any sore throat. CARDIOVASCULAR: No orthopnea, PND, no palpitations, no syncope. PULMONARY: No shortness of breath, no cough, no hemoptysis. GASTROINTESTINAL: No diarrhea, no nausea, no vomiting, no abdominal pain. Normoactive bowel sounds. NEUROLOGICAL: No headaches, no weakness, no numbness. HEMATOLOGICAL: Denies any bleeding or petechiae. GENITOURINARY: Denies any burning micturition, frequency, or urgency. ENDOCRINE: Denies any polyuria or polydipsia. Medications: tylenol, ceftriaxone, dopamine, heparin drip, hydralazine, norco , dilaudid, novolog insulin , claritin , melatonin ,a narcan , zofran , protonix , sodium chloride iv fluid, and armour thyroid ( doses are noted ), heparin drip Objective - Vital Signs Vital signs: Vital Signs Temp 97.7 F 10/13/17 15:58 Pulse 64 10/13/17 17:00 Resp 18 10/13/17 15:58 BP 172/74 10/13/17 17:00 Pulse Ox 97 10/13/17 15:58 Intake & Output 10/13/17 10/13/17 10/14/17 06:59 18:59 06:59 Intake Total 590 Balance 590 Weight 83 kg Intake: Oral 590 Other: Voiding Method Diaper Diaper Incontinent Incontinent # Voids 2 1 # Bowel Movements 1 - Exam GENERAL: The patient is alert and oriented x3, not in any acute distress. Well developed, well nourished. HEENT: Pupils are round and equally reacting to light. EOMI. No scleral icterus. No conjunctival pallor. Normocephalic, atraumatic. No pharyngeal erythema. No thyromegaly. CARDIOVASCULAR: S1 and S2 present. No murmurs, rubs, or gallops. PULMONARY: Chest is clear to auscultation, no wheezing or crackles. ABDOMEN: Soft, nontender, nondistended, normoactive bowel sounds. No palpable organomegaly. MUSCULOSKELETAL: No joint swelling or deformity. EXTREMITIES: No cyanosis, clubbing, or pedal edema. -Left upper extremity numbness, no weakness is appreciated, however her movement to 6 dictated by painful surgical site of the pacemaker at left upper chest area to purple spots on the left fingers. We left radial pulse. No discoloration. No swelling. No obvious bleeding No weakness or abnormal discoloration is noted in the lower extremity on both sides NEUROLOGICAL: Gross neurological examination did not reveal any focal deficits. SKIN: No rashes. - Labs CBC & Chem 7: 10/13/17 05:55 10/13/17 05:55 Labs: Abnormal Lab Results - Last 24 Hours (Table) 10/12/17 10/13/17 10/13/17 Range/Units 20:56 05:45 05:55 RBC 2.84 L (3.80-5.40) m/uL Hgb 7.9 L (11.4-16.0) gm/dL Hct 25.6 L (34.0-46.0) % MCHC 30.9 L (31.0-37.0) g/dL Plt Count 452 H (150-450) k/uL BUN (7-17) mg/dL Glucose (74-99) mg/dL POC Glucose (mg/dL) 124 H 126 H (75-99) mg/dL 10/13/17 10/13/17 10/13/17 Range/Units 05:55 11:26 16:57 RBC (3.80-5.40) m/uL Hgb (11.4-16.0) gm/dL Hct (34.0-46.0) % MCHC (31.0-37.0) g/dL Plt Count (150-450) k/uL BUN 20 H (7-17) mg/dL Glucose 103 H (74-99) mg/dL POC Glucose (mg/dL) 165 H 149 H (75-99) mg/dL 10/13/17 Range/Units 20:37 RBC (3.80-5.40) m/uL Hgb (11.4-16.0) gm/dL Hct (34.0-46.0) % MCHC (31.0-37.0) g/dL Plt Count (150-450) k/uL BUN (7-17) mg/dL Glucose (74-99) mg/dL POC Glucose (mg/dL) 139 H (75-99) mg/dL Assessment and Plan Assessment: Acute left brachial artery thrombosis Bilateral numbness of the both lower extremities Syncope Bradycardia with pauses sick sinus syndrome UTI Anemia Hypertension Thyroid disorder Chronic bronchitis Urine incontinence Peripheral neuropathy [facility] Plan: Patient is an 81 years old female who presents because of syncope and bradycardia. Continue with same treatment. Continue same treatment treatment. Patient has acute left upper brachial artery thrombosis, vascular surgeon been consulted and patient is going for possible thrombectomy this afternoon. Patient was started on heparin drip. cardiology consult is appreciated , pt is s/p pacemaker for sick sinus syndrome. Patient is off dopamine and heparin drip as per cardiology recommendation, possible starting eliquis tomorrow . . Resume home medication. Continue with ceftriaxone, follow-up UC. Continue with gentle hydration. Continue with blood pressure medication. GI and DVT prophylaxis. We'll continue with IV fluids and nephrology consult is following the patient. Patient with anemia .FOBT: Pending, Iron and B12: Pending Further recommendations based on her clinical course. s/p left brachial embelectomy on 10/10/17, Plus the insulin and bicarbonate by the nephrology team. Follow-up potassium level Renal ultrasound: Pending call GI consult : outpt work up , discussed with pt and son at bed side Prognosis guarded plan for [facility]
[2017-10-14] MEDS: APIXABAN 2.5 MG TABLET PO SCH ×3 (00:25→20:04)
[2017-10-14] MEDS: ASCORBIC ACID 500 MG TAB PO SCH ×3 (00:25→20:04)
[2017-10-14] MEDS: LORATADINE 10 MG TAB PO SCH ×2 (00:27→20:03)
[2017-10-14] MEDS: MELATONIN 5 MG TABLET PO SCH (00:27)
[2017-10-14] MEDS: METOPROLOL TARTRATE 25 MG TAB PO SCH ×3 (00:27→20:03)
[2017-10-14] MEDS: hydrALAZINE HCL 50 MG TAB PO SCH ×4 (00:27→21:46)
[2017-10-14 05:58] LABS: Glucose,Whole Blood 113 mg/dL (75-99)
[2017-10-14 07:34] LABS: Basophils # (A) 0.1 k/uL (0-0.2); Basophils % (A) 1 %; Eosinophils # (A) 0.6 k/uL (0-0.7); Eosinophils % (A) 6 %; HCT 26.6 % (34.0-46.0); HGB 8.3 gm/dL (11.4-16.0); Lymphocytes # (A) 1.6 k/uL (1.0-4.8); Lymphocytes % (A) 17 %; MCH 28.3 pg (25.0-35.0); MCHC 31.4 g/dL (31.0-37.0); MCV 90.2 fL (80.0-100.0); Mean Platelet Volume 7.1; Monocytes # (A) 0.5 k/uL (0-1.0); Monocytes % (A) 6 %; Neutrophils # (A) 6.5 k/uL (1.3-7.7); Neutrophils % (A) 69 %; Platelet Count 468 k/uL (150-450); RBC 2.95 m/uL (3.80-5.40); RDW 13.6 % (11.5-15.5); WBC 9.4 k/uL (3.8-10.6)
[2017-10-14] MEDS: LISINOPRIL 5 MG TAB PO SCH (07:44)
[2017-10-14] MEDS: THYROID, PORK 30 MG TAB PO SCH (07:44)
[2017-10-14] MEDS: PANTOPRAZOLE 40 MG TABLET PO SCH (07:44)
[2017-10-14] MEDS: amLODIPine 10 MG TAB PO SCH (07:45)
[2017-10-14] MEDS: HYDROCHLOROTHIAZIDE 25 MG TAB PO SCH (07:45)
[2017-10-14 11:29] LABS: Glucose,Whole Blood 147 mg/dL (75-99)
[2017-10-14] MEDS: INSULIN ASPART 100 UNIT/ML 1 ML 10 ML VIAL SQ SCH ×4 (12:06→21:27)
--- NOTE | 2017-10-14 13:26 | P.PN ---
Subjective Mrs. Perez is a pleasant 81-year-old female seen and examined resting comfortably in bed. She presented to the hospital with evidence of syncope, presyncope and sick sinus syndrome. She underwent permanent pacemaker implantation. Subsequently she had an embolic event to the left brachial artery and underwent thrombectomy. She is resting comfortably in bed in no acute distress. Blood pressures have been elevated and medications were adjusted yesterday. She is currently maintained on amlodipine 10 mg daily, hydralazine 50 mg 3 times a day, hydrochlorothiazide 25 mg daily, lisinopril 5 mg daily, metoprolol 25 mg twice a day and Eliquis 2.5 mg twice a day. Blood pressures 150s over 70s heart rate in the 60s. Afebrile maintaining oxygen saturation. Hemoglobin 8.3, platelets 468. She denies symptoms of chest pain, shortness of breath, palpitations or dizziness. Objective - Vital Signs Vital signs: Vital Signs Temp 97.8 F 10/14/17 07:48 Pulse 66 10/14/17 07:48 Resp 18 10/14/17 07:49 BP 152/74 10/14/17 07:48 Pulse Ox 97 10/14/17 07:48 Intake & Output 10/13/17 10/14/17 10/14/17 18:59 06:59 18:59 Intake Total 590 236 Output Total 225 Balance 590 -225 236 Weight 83.2 kg Intake: Oral 590 236 Output: Urine 225 Other: Voiding Method Diaper Diaper Diaper Incontinent Incontinent Incontinent # Voids 1 1 1 # Bowel Movements 1 - Exam GENERAL: Well-appearing, well-nourished and in no acute distress. NECK: Supple without JVD or thyromegaly. LUNGS: Breath sounds clear to auscultation bilaterally. Respiration equal and unlabored. No wheezes, rales or rhonchi. HEART: Regular rate and rhythm without murmurs, rubs or gallops. S1 and S2 heard. EXTREMITIES: Normal range of motion, no edema. No clubbing or cyanosis. Peripheral pulses intact. - Labs CBC & Chem 7: 10/14/17 06:32 10/13/17 05:55 Labs: Abnormal Lab Results - Last 24 Hours (Table) 10/13/17 10/13/17 10/14/17 Range/Units 16:57 20:37 05:55 RBC (3.80-5.40) m/uL Hgb (11.4-16.0) gm/dL Hct (34.0-46.0) % Plt Count (150-450) k/uL POC Glucose (mg/dL) 149 H 139 H 113 H (75-99) mg/dL 10/14/17 10/14/17 Range/Units 06:32 11:27 RBC 2.95 L (3.80-5.40) m/uL Hgb 8.3 L (11.4-16.0) gm/dL Hct 26.6 L (34.0-46.0) % Plt Count 468 H (150-450) k/uL POC Glucose (mg/dL) 147 H (75-99) mg/dL Assessment and Plan Assessment: ASSESSMENT Sick sinus syndrome with long pauses, status post permanent pacemaker implantation Paroxysmal atrial fibrillation on long-term anticoagulation currently maintaining sinus mechanism Hypertension Acute kidney injury, resolved. Acute left brachial artery thrombosis Normochromic normocytic anemia, unknown etiology GI service is following.. PLAN Stable from a cardiac perspective. Continue current medical regimen. Ongoing medical management of anemia and left brachial artery thrombosis. Nurse Practitioner note has been reviewed, I agree with a documented findings and plan of care. Patient was seen and examined.
[2017-10-14 16:25] LABS: Glucose,Whole Blood 144 mg/dL (75-99)
[2017-10-14] MEDS: cefTRIAXone IN SWFI 1,000 MG/10 ML SYRINGE IVP SCH (17:41)
[2017-10-14 21:05] LABS: Glucose,Whole Blood 118 mg/dL (75-99)
--- NOTE | 2017-10-14 21:58 | P.PN ---
Subjective This is a pleasant 81 years old female with past medical history of diabetes mellitus, hypertension, thyroid disorder, vertigo, chronic bronchitis, urine incontinence, peripheral neuropathy, who presents because of syncope, patient states she blacked out twice 1 last week and one yesterday. Patient also complaining of from dizziness which is nonspecific comes and goes. No associated chest pain or nausea vomiting. Patient states she has infection in her urine and she is complaining of from leg cramps. On admission her creatinine is up at 1.8, compared to baseline of 1.1-1.2, patient looks dehydrated. 10/08/2017 pt was transferred to the ICU over night for sever bradycardia , she was started on dopamine drip. as per golf ball inspector pt has symptomatic pauses , pt mostly is with sick sinus syndrome , pt status post pacemaker placement on , pt was lying in bed and feels better. she remains on iv fluids and her cr is trending down to 1.6 , pt still has anemia , anemia work up is still on process , pt is on ceftiaxone for her urinary tract infection , and yesterday we gave her 2 gram as it is anticipated to have surgical intervention with pacemaker which iwas urgent/emergent. pt vitals are more stable currently and pt might be considered to be transfered to general medical floor 10/09/2017 Patient remains in the ICU, she is status post pacemaker placement for sick sinus syndrome and syncope. Blood pressures on normal high side. Metoprolol 25 twice a day is added Her creatinine went up from 1.6 TO 2.0. PATIENT IS STILL ON IV ANTIBIOTICS FOR UTI. k = 6.0, Kayexalate provided, follow-up potassium level. Urine culture: No growth 10/10/2017 Patient this morning after she took a shower she felt numbness in her left upper extremity, patient does not complain from weakness in her left upper extremity, however her movement of the left upper extremity is limited by pain from the surgical site of the left upper chest pacemaker. at that time she was evaluated by golf ball inspector Dr. Avina. There is weak radial pulse, arterial Doppler shows significant pressure gradient above the brachial on the left with a pressure of 170 on the right and 58 on the left at that radial level. Which is suspected for arterial thrombosis of the left upper extremity. Patient was a started on heparin drip and Vascular surgeon is been consulted, I discussed the case with the vascular surgeon on-call. Patient is going for possible embolectomy this afternoon. Later on patient complained from numbness of both lower extremities, arterial Doppler was ordered and the result is pending. Son is at bedside 10/11/2017 pt is s/p embelectomy yesterday , pt left UE nubness resolved, as well her LE numbness, her limbs are warm and with positive strong pulsation incluiding left radial pulse 10/12/2017 pt is too weak to go home , recommended subacute rehab and pt and family are accepting , sw on the case , pt is with [facility] , we called GI consult 10/13/2017 pt is with [facility], GI evaluation is appreciated , they recommended outpt workup and possible scope, discussed with the pt and son at bed side , son confirmed me he will f/u and he will call and make appointment as recommended in 1 or 2 week , and he agrees. pt has some numbness in her left hand from recent thromboctomy, recommended PT/OT evaluation 10/14/2017 pt is noted more sleepy toady , we dc her melatonin , we will f/u , pt and son are aware of the need for GI evaluation as outpt and discussed with son on the importance of f/u. pt is telling me he numbness in her left hand is minimal now and is improving REVIEW OF SYSTEMS: CONSTITUTIONAL: No fever, no malaise, no fatigue. HEENT: No recent visual problems or hearing problems. Denied any sore throat. CARDIOVASCULAR: No orthopnea, PND, no palpitations, no syncope. PULMONARY: No shortness of breath, no cough, no hemoptysis. GASTROINTESTINAL: No diarrhea, no nausea, no vomiting, no abdominal pain. Normoactive bowel sounds. NEUROLOGICAL: No headaches, no weakness, no numbness. HEMATOLOGICAL: Denies any bleeding or petechiae. GENITOURINARY: Denies any burning micturition, frequency, or urgency. ENDOCRINE: Denies any polyuria or polydipsia. Medications: tylenol, ceftriaxone, dopamine, heparin drip, hydralazine, norco , dilaudid, novolog insulin , claritin , melatonin ,a narcan , zofran , protonix , sodium chloride iv fluid, and armour thyroid ( doses are noted ), heparin drip Objective - Vital Signs Vital signs: Vital Signs Temp 97.7 F 10/14/17 20:00 Pulse 67 10/14/17 20:00 Resp 18 10/14/17 20:00 BP 151/80 10/14/17 20:00 Pulse Ox 93 L 10/14/17 20:00 Intake & Output 10/14/17 10/14/17 10/15/17 06:59 18:59 06:59 Intake Total 590 Output Total 225 60 Balance -225 530 Weight 83.2 kg Intake: Oral 590 Output: Urine 225 Post Void Residual 60 Other: Voiding Method Diaper Diaper Diaper Incontinent Incontinent Incontinent # Voids 1 1 - Exam GENERAL: The patient is alert and oriented x3, not in any acute distress. Well developed, well nourished. more sleeping but easy to arouse. HEENT: Pupils are round and equally reacting to light. EOMI. No scleral icterus. No conjunctival pallor. Normocephalic, atraumatic. No pharyngeal erythema. No thyromegaly. CARDIOVASCULAR: S1 and S2 present. No murmurs, rubs, or gallops. PULMONARY: Chest is clear to auscultation, no wheezing or crackles. ABDOMEN: Soft, nontender, nondistended, normoactive bowel sounds. No palpable organomegaly. MUSCULOSKELETAL: No joint swelling or deformity. EXTREMITIES: No cyanosis, clubbing, or pedal edema. -Left upper extremity numbness, no weakness is appreciated, however her movement to 6 dictated by painful surgical site of the pacemaker at left upper chest area to purple spots on the left fingers. We left radial pulse. No discoloration. No swelling. No obvious bleeding No weakness or abnormal discoloration is noted in the lower extremity on both sides NEUROLOGICAL: Gross neurological examination did not reveal any focal deficits. SKIN: No rashes. - Labs CBC & Chem 7: 10/14/17 06:32 10/13/17 05:55 Labs: Abnormal Lab Results - Last 24 Hours (Table) 10/14/17 10/14/17 10/14/17 Range/Units 05:55 06:32 11:27 RBC 2.95 L (3.80-5.40) m/uL Hgb 8.3 L (11.4-16.0) gm/dL Hct 26.6 L (34.0-46.0) % Plt Count 468 H (150-450) k/uL POC Glucose (mg/dL) 113 H 147 H (75-99) mg/dL 10/14/17 10/14/17 Range/Units 16:23 21:01 RBC (3.80-5.40) m/uL Hgb (11.4-16.0) gm/dL Hct (34.0-46.0) % Plt Count (150-450) k/uL POC Glucose (mg/dL) 144 H 118 H (75-99) mg/dL Assessment and Plan Assessment: Acute left brachial artery thrombosis Bilateral numbness of the both lower extremities Syncope Bradycardia with pauses sick sinus syndrome UTI Anemia Hypertension Thyroid disorder Chronic bronchitis Urine incontinence Peripheral neuropathy [facility] Plan: Patient is an 81 years old female who presents because of syncope and bradycardia. Continue with same treatment. Continue same treatment treatment. Patient has acute left upper brachial artery thrombosis, vascular surgeon been consulted and patient is going for possible thrombectomy this afternoon. Patient was started on heparin drip. cardiology consult is appreciated , pt is s/p pacemaker for sick sinus syndrome. Patient is off dopamine and heparin drip as per cardiology recommendation, possible starting eliquis tomorrow . . Resume home medication. Continue with ceftriaxone, follow-up UC. Continue with gentle hydration. Continue with blood pressure medication. GI and DVT prophylaxis. We'll continue with IV fluids and nephrology consult is following the patient. Patient with anemia .FOBT: Pending, Iron and B12: Pending Further recommendations based on her clinical course. s/p left brachial embelectomy on 10/10/17, Plus the insulin and bicarbonate by the nephrology team. Follow-up potassium level Renal ultrasound: Pending call GI consult : outpt work up , discussed with pt and son at bed side Prognosis guarded plan for [facility]
[2017-10-15 06:32] LABS: Glucose,Whole Blood 147 mg/dL (75-99)
[2017-10-15 06:56] LABS: Basophils # (A) 0.1 k/uL (0-0.2); Basophils % (A) 1 %; Eosinophils # (A) 0.7 k/uL (0-0.7); Eosinophils % (A) 6 %; HCT 26.4 % (34.0-46.0); HGB 8.4 gm/dL (11.4-16.0); Lymphocytes # (A) 1.9 k/uL (1.0-4.8); Lymphocytes % (A) 19 %; MCH 28.7 pg (25.0-35.0); MCHC 31.9 g/dL (31.0-37.0); MCV 90.1 fL (80.0-100.0); Mean Platelet Volume 7.3; Monocytes # (A) 0.7 k/uL (0-1.0); Monocytes % (A) 7 %; Neutrophils # (A) 6.8 k/uL (1.3-7.7); Neutrophils % (A) 66 %; Platelet Count 504 k/uL (150-450); RBC 2.94 m/uL (3.80-5.40); RDW 13.7 % (11.5-15.5); WBC 10.3 k/uL (3.8-10.6)
[2017-10-15] MEDS: INSULIN ASPART 100 UNIT/ML 1 ML 10 ML VIAL SQ SCH ×3 (07:05→18:15)
[2017-10-15 07:36] VITALS: RESP 16
[2017-10-15] MEDS: ASCORBIC ACID 500 MG TAB PO SCH (07:51)
[2017-10-15] MEDS: THYROID, PORK 30 MG TAB PO SCH (07:51)
[2017-10-15] MEDS: METOPROLOL TARTRATE 25 MG TAB PO SCH (07:52)
[2017-10-15] MEDS: LISINOPRIL 5 MG TAB PO SCH (07:52)
[2017-10-15] MEDS: HYDROCHLOROTHIAZIDE 25 MG TAB PO SCH (07:52)
[2017-10-15] MEDS: PANTOPRAZOLE 40 MG TABLET PO SCH (07:52)
[2017-10-15] MEDS: APIXABAN 2.5 MG TABLET PO SCH (07:52)
[2017-10-15] MEDS: amLODIPine 10 MG TAB PO SCH (07:52)
[2017-10-15] MEDS: hydrALAZINE HCL 50 MG TAB PO SCH ×2 (07:52→18:15)
[2017-10-15 10:12] LABS: Albumin 2.63 g/dL (3.80-4.90); Gamma Globulin 0.81 g/dL (0.70-1.50)
--- NOTE | 2017-10-15 14:18 | P.DS ---
Providers Date of admission: 10/07/17 23:34 Attending physician: Mary Mustafa Consults: 10/07/17 12:28 Consult Physician Routine Consulting Provider: Favian Avina Consult Reason/Comments: syncope, bradycardia and pauses Do you want consulting provider notified?: Yes 10/07/17 17:29 Consult Physician Routine Consulting Provider: Earline Diaz Consult Reason/Comments: Renal failure Do you want consulting provider notified?: Yes 10/10/17 13:02 Consult Physician Stat Consulting Provider: Gregorio Franklin Consult Reason/Comments: Thrombectomy Do you want consulting provider notified?: Yes 10/10/17 13:06 Consult Physician Stat Consulting Provider: Cheko Wilde Consult Reason/Comments: Bilat. leg numbness Do you want consulting provider notified?: Yes 10/10/17 18:22 Consult Physician Routine Consulting Provider: Suraj Childs Consult Reason/Comments: thrombectomy Do you want consulting provider notified?: Yes 10/12/17 13:12 Consult Physician Routine Consulting Provider: Mylene Clark Consult Reason/Comments: Low hgb, on Eliquis Do you want consulting provider notified?: Yes Primary care physician: [facility] Course: Patient was admitted with severe bradycardia subsequently, found to have sick sinus syndrome received a pacemaker which was complicated by left brachial DVT patient underwent thrombectomy patient was subsequently started on eliquis, patient will be discharged to subacute rehabilitation today. Patient appears to have been treated for UTI as well GENERAL: The patient is alert and oriented x3, not in any acute distress. Well developed, well nourished. more sleeping but easy to arouse. HEENT: Pupils are round and equally reacting to light. EOMI. No scleral icterus. No conjunctival pallor. Normocephalic, atraumatic. No pharyngeal erythema. No thyromegaly. CARDIOVASCULAR: S1 and S2 present. No murmurs, rubs, or gallops. PULMONARY: Chest is clear to auscultation, no wheezing or crackles. ABDOMEN: Soft, nontender, nondistended, normoactive bowel sounds. No palpable organomegaly. MUSCULOSKELETAL: No joint swelling or deformity. EXTREMITIES: No cyanosis, clubbing, or pedal edema. -Left upper extremity numbness, no weakness is appreciated, however her movement to 6 dictated by painful surgical site of the pacemaker at left upper chest area to purple spots on the left fingers. We left radial pulse. No discoloration. No swelling. No obvious bleeding No weakness or abnormal discoloration is noted in the lower extremity on both sides NEUROLOGICAL: Gross neurological examination did not reveal any focal deficits. SKIN: No rashes. Assessment and Plan Assessment: Acute left brachial artery thrombosis Bilateral numbness of the both lower extremities are secondary to peripheral neuropathy from chronic low back pain Syncope secondary to sick sinus syndrome, status post pacemaker placement Bradycardia with pauses sick sinus syndrome UTI Anemia Hypertension Thyroid disorder Chronic bronchitis Urine incontinence Peripheral neuropathy Plan - Discharge Summary New Discharge Prescriptions: New Acetaminophen Tab [Tylenol] 650 mg PO Q6HR PRN tab PRN Reason: Mild Pain Or Fever > 100.5 amLODIPine [Norvasc] 10 mg PO DAILY tab Apixaban [Eliquis] 2.5 mg PO BID tablet Lisinopril [Zestril] 5 mg PO DAILY tab Metoprolol Tartrate [Lopressor] 25 mg PO BID tab Continue Loratadine [Claritin] 10 mg PO HS Cranberry Fruit Extract [Cranberry] 500 mg PO BID Diabetic Nerve Rejuvination 1 tab PO DAILY Ascorbic Acid [Vitamin C] 1,000 mg PO BID Blood Sugar Advantage 1 tab PO DAILY Docusate [Colace] 100 mg PO DAILY PRN PRN Reason: Constipation hydrALAZINE HCL [Apresoline] 25 mg PO TID V-C Forte 1 cap PO DAILY Omeprazole [PriLOSEC] 40 mg PO DAILY [place] Thyroid 90 mg PO DAILY amLODIPine [Norvasc] 5 mg PO DAILY@1700 #30 tab Cefuroxime Axetil [Ceftin] 500 mg PO BID #6 tab Discontinued Marshall-3 Acid Ethyl Esters [Lovaza] 2 gm PO BID Acai Post Extract [Acai] 500 mg PO DAILY Melatonin 5 mg PO HS Discharge Medication List Ascorbic Acid [Vitamin C] 1,000 mg PO BID 05/11/15 [History] Blood Sugar Advantage 1 tab PO DAILY 05/11/15 [History] Cranberry Fruit Extract [Cranberry] 500 mg PO BID 05/11/15 [History] Diabetic Nerve Rejuvination 1 tab PO DAILY 05/11/15 [History] Loratadine [Claritin] 10 mg PO HS 05/11/15 [History] Docusate [Colace] 100 mg PO DAILY PRN 06/16/15 [History] [place] [employer]eman Thyroid 90 mg PO DAILY 09/30/17 [History] Omeprazole [PriLOSEC] 40 mg PO DAILY 09/30/17 [History] V-C Forte 1 cap PO DAILY 09/30/17 [History] hydrALAZINE HCL [Apresoline] 25 mg PO TID 09/30/17 [History] amLODIPine [Norvasc] 5 mg PO DAILY@1700 #30 tab 10/02/17 [Rx] Acetaminophen Tab [Tylenol] 650 mg PO Q6HR PRN tab 10/15/17 [Rx] Apixaban [Eliquis] 2.5 mg PO BID tablet 10/15/17 [Rx] Cefuroxime Axetil [Ceftin] 500 mg PO BID #6 tab 10/15/17 [Rx] Lisinopril [Zestril] 5 mg PO DAILY tab 10/15/17 [Rx] Metoprolol Tartrate [Lopressor] 25 mg PO BID tab 10/15/17 [Rx] amLODIPine [Norvasc] 10 mg PO DAILY tab 10/15/17 [Rx] Follow up Appointment(s)/Referral(s): Favian Avina MD [STAFF PHYSICIAN] - 2 Weeks Bharath Manzo MD [Primary Care Provider] - 1-2 days Patient Instructions/Handouts: Pacemaker (DC) Activity/Diet/Wound Care/Special Instructions: Please make appt for Dr at discharge so Pt can have timely follow up. !!Son will be available at 4pm on Sunday for potential Discharge!! Discharge Disposition: TRANSFER TO SNF/ECF
--- NOTE | 2017-10-15 15:41 | P.PN ---
Subjective Progress Note Date: 10/15/17 Mrs. Perez is a pleasant 81-year-old female seen and examined resting comfortably in bed. She presented to the hospital with evidence of syncope, presyncope and sick sinus syndrome. She underwent permanent pacemaker implantation. Subsequently she had an embolic event to the left brachial artery and underwent thrombectomy. She is resting comfortably in bed in no acute distress. Hemodynamically stable. Arrangements are being made for ECF placement today. Objective - Vital Signs Vital signs: Vital Signs Temp 97.7 F 10/15/17 07:34 Pulse 64 10/15/17 07:34 Resp 16 10/15/17 07:57 BP 138/79 10/15/17 07:34 Pulse Ox 94 L 10/15/17 07:34 Intake & Output 10/14/17 10/15/17 10/15/17 18:59 06:59 18:59 Intake Total 590 480 Output Total 60 451 Balance 530 -451 480 Weight 81.7 kg Intake: Oral 590 480 Output: Urine 450 Post Void Residual 60 Urine/Stool Mix 1 Other: Voiding Method Diaper Diaper Diaper Incontinent Incontinent Incontinent # Voids 1 1 1 # Bowel Movements 1 - Exam GENERAL: Well-appearing, well-nourished and in no acute distress. NECK: Supple without JVD or thyromegaly. LUNGS: Breath sounds clear to auscultation bilaterally. Respiration equal and unlabored. No wheezes, rales or rhonchi. HEART: Regular rate and rhythm without murmurs, rubs or gallops. S1 and S2 heard. EXTREMITIES: Normal range of motion, no edema. No clubbing or cyanosis. Peripheral pulses intact. - Labs CBC & Chem 7: 10/15/17 05:51 10/13/17 05:55 Labs: Abnormal Lab Results - Last 24 Hours (Table) 10/09/17 10/14/17 10/14/17 Range/Units 19:45 16:23 21:01 RBC (3.80-5.40) m/uL Hgb (11.4-16.0) gm/dL Hct (34.0-46.0) % Plt Count (150-450) k/uL POC Glucose (mg/dL) 144 H 118 H (75-99) mg/dL Albumin (PEP) 2.63 L (3.80-4.90) g/dL Fotdp-1-Zyfhjgdjf 0.47 H (0.10-0.40) g/dL Srkzg-1-Orlpzcjxx 1.01 H (0.60-1.00) g/dL Beta Globulins 0.59 L (0.60-1.30) g/dL 10/15/17 10/15/17 Range/Units 05:51 06:27 RBC 2.94 L (3.80-5.40) m/uL Hgb 8.4 L (11.4-16.0) gm/dL Hct 26.4 L (34.0-46.0) % Plt Count 504 H (150-450) k/uL POC Glucose (mg/dL) 147 H (75-99) mg/dL Albumin (PEP) (3.80-4.90) g/dL Lfojy-3-Hkpxdtvlp (0.10-0.40) g/dL Ghoud-6-Zssfbxwah (0.60-1.00) g/dL Beta Globulins (0.60-1.30) g/dL Assessment and Plan Plan: ASSESSMENT #1 Sick sinus syndrome with long pauses, status post permanent pacemaker implantation #2 Paroxysmal atrial fibrillation on long-term anticoagulation currently maintaining sinus mechanism #3 Hypertension #4 Acute kidney injury, resolved. #5 Acute left brachial artery thrombosis, status post thrombectomy Plan From Cardiology's perspective, patient may be able to be transferred to ECF once a bed is available. We will make a follow-up appointment in the office post discharge. DNP note has been reviewed, I agree with a documented findings and plan of care. Patient was seen and examined.
--- NOTE | 2017-10-15 15:50 | P.PN ---
Progress Note - Text Progress Note Date: 10/15/17 This is an addendum to the cardiology progress note dictated today. Patient did have a left brachial thrombectomy performed for evidence of occlusion of the brachial artery, unexpected complication, possibly related to atrial fibrillation. DNP note has been reviewed, I agree with a documented findings and plan of care. Patient was seen and examined.
[2017-10-15 16:43] VITALS: BP 126/72; PULSE 68; TEMP 98.5
[2017-10-15] MEDS: cefTRIAXone IN SWFI 1,000 MG/10 ML SYRINGE IVP SCH (18:14)
== END 2017-10-15 18:42 | DRG 242 ==
LOC: EC 21:02 → INTOOBSV 23:44 → 3OBS 23:44 → OBSVTOIN 23:44 → 6SEL 10-07 20:44 → OBSVTOIN 10-07 23:34 → 6ICU 10-07 23:35 → 6SEL 10-09 12:24
PROVIDERS: ADMIT Hospitalist; ATTEND Hospitalist
PROC: 0JH604Z Insertion of Pacemaker, Single Chamber into Chest Subcutaneous Tissue and Fascia, Open Approach (ICD-10-PCS; principal; 2017-10-09)
PROC: 02HK3JZ Insertion of Pacemaker Lead into Right Ventricle, Percutaneous Approach (ICD-10-PCS; 2017-10-09)
PROC: 03C80ZZ Extirpation of Matter from Left Brachial Artery, Open Approach (ICD-10-PCS; 2017-10-10)
DX: I49.5 Sick sinus syndrome (principal); N17.0 Acute kidney failure with tubular necrosis; E87.2 Acidosis; N39.0 Urinary tract infection, site not specified; I74.2 Embolism and thrombosis of arteries of the upper extremities; R55 Syncope and collapse; D50.9 Iron deficiency anemia, unspecified; J42 Unspecified chronic bronchitis; E11.42 Type 2 diabetes mellitus with diabetic polyneuropathy; E03.9 Hypothyroidism, unspecified; M19.90 Unspecified osteoarthritis, unspecified site; F32.9 Major depressive disorder, single episode, unspecified; E11.22 Type 2 diabetes mellitus with diabetic chronic kidney disease; E78.5 Hyperlipidemia, unspecified; E86.0 Dehydration; E87.5 Hyperkalemia; G89.29 Other chronic pain; M54.5 Low back pain; I12.9 Hypertensive chronic kidney disease with stage 1 through stage 4 chronic kidney disease, or unspecified chronic kidney disease; I35.0 Nonrheumatic aortic (valve) stenosis; I48.0 Paroxysmal atrial fibrillation; N18.9 Chronic kidney disease, unspecified; K59.00 Constipation, unspecified; R32 Unspecified urinary incontinence; Z87.891 Personal history of nicotine dependence; Z82.49 Family history of ischemic heart disease and other diseases of the circulatory system; Z79.01 Long term (current) use of anticoagulants; Z79.899 Other long term (current) drug therapy; Z79.890 Hormone replacement therapy
CPT/HCPCS: 33208; 36415; 71046; 76770; 80048; 80053; 80074; 81001; 82550; 82553; 82570; 82607; 82728; 82746; 83036; 83540; 83550; 83735; 84100; 84132; 84156; 84165; 84439; 84443; 84484; 85025; 85027; 85610; 85730; 86038; 86160; 86162; 86255; 86334; 86335; 86850; 86900; 86901; 87086; 88304; 93923; 99284

== ENCOUNTER 2018-03-28 18:00 | Inpatient (IN) | payer MEDICARE, OTHER ==
[2018-03-28] MEDS ORDERED: SODIUM CHLORIDE 0.9% 500 ML 500 ML IV STA (18:21)
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
[2018-03-28 19:09] LABS: Basophils % (A) 0 %; Eosinophils # (A) 0.2 k/uL (0-0.7); Eosinophils % (A) 2 %; HCT 33.5 % (34.0-46.0); HGB 10.5 gm/dL (11.4-16.0); Lymphocytes # (A) 1.4 k/uL (1.0-4.8); Lymphocytes % (A) 14 %; MCH 28.1 pg (25.0-35.0); MCHC 31.2 g/dL (31.0-37.0); Mean Platelet Volume 6.6; Monocytes # (A) 0.5 k/uL (0-1.0); Monocytes % (A) 5 %; Neutrophils # (A) 7.8 k/uL (1.3-7.7); Neutrophils % (A) 76 %; Platelet Count 270 k/uL (150-450); RBC 3.72 m/uL (3.80-5.40); RDW 14.5 % (11.5-15.5); WBC 10.3 k/uL (3.8-10.6)
--- NOTE | 2018-03-28 19:22 | XR ---
EXAMINATION TYPE: XR KUB DATE OF EXAM: 03/28/2018 COMPARISON: None HISTORY: Abdominal pain TECHNIQUE: 2 views upright FINDINGS: There are some distended gas-filled loops of small bowel in the mid abdomen. Large bowel ga s pattern is normal. Fecal pattern is normal. Lung bases show no pulmonary consolidation. There are n o pathologic calcifications over the kidneys. IMPRESSION: Distended small bowel with gas that could relate to ileus or partial mechanical obstructi on. No free air.
[2018-03-28 19:31] LABS: Albumin 3.9 g/dL (3.5-5.0); Calcium 9.5 mg/dL (8.4-10.2); Potassium 4.3 mmol/L (3.5-5.1); Total Protein 7.5 g/dL (6.3-8.2)
[2018-03-28] MEDS ORDERED: MORPHINE SULFATE 2 MG/ML SYRINGE IVP STA (20:35)
[2018-03-28] MEDS ORDERED: MORPHINE SULFATE 4 MG/ML SYRINGE IV PRN (20:49)
[2018-03-28] MEDS ORDERED: ONDANSETRON 4 MG/2 ML VIAL IVP PRN (20:49)
[2018-03-28] MEDS ORDERED: NALOXONE 0.4 MG/ML 1 ML VIAL IV PRN (20:49)
[2018-03-28] MEDS ORDERED: ACETAMINOPHEN TAB 325 MG TAB PO PRN (20:49)
[2018-03-28 21:51] LABS: Glucose,Whole Blood 109 mg/dL (75-99)
[2018-03-28] MEDS: METOPROLOL TARTRATE 25 MG TAB PO SCH (22:10)
[2018-03-28] MEDS: SODIUM CHLORIDE 0.9% 1,000 ML IV SCH (22:10)
[2018-03-28] MEDS: APIXABAN 2.5 MG TABLET PO SCH (22:10)
[2018-03-29 00:06] LABS: Appearance,Urine Turbid (Clear); Bacteria,Urine Occasional /hpf; Bilirubin,Urine Negative (Negative); Blood,Urine Moderate (Negative); Color,Urine Yellow; Glucose,Urine (UA) Negative (Negative); Ketones,Urine Negative (Negative); Leukocyte Esterase,Urine Large (Negative); Nitrite,Urine Negative (Negative); Protein,Urine 1+ (Negative); RBC,Urine 63 /hpf (0-5); Urobilinogen,Urine <2.0 mg/dL (<2.0); WBC,Urine >182 /hpf (0-5)
[2018-03-29 00:14] LABS: Specific Gravity,Urine 1.007 (1.001-1.035)
[2018-03-29 07:17] LABS: Glucose,Whole Blood 91 mg/dL (75-99)
[2018-03-29] MEDS: amLODIPine 10 MG TAB PO SCH (08:47)
[2018-03-29] MEDS: METOPROLOL TARTRATE 25 MG TAB PO SCH ×2 (08:47→20:42)
[2018-03-29] MEDS: SODIUM CHLORIDE 0.9% 1,000 ML IV SCH ×2 (08:49→17:16)
[2018-03-29] MEDS ORDERED: PANTOPRAZOLE 40 MG/10 ML VIAL IV SCH (09:00)
[2018-03-29] MEDS ORDERED: LISINOPRIL 5 MG TAB PO SCH (09:00)
[2018-03-29] MEDS: APIXABAN 2.5 MG TABLET PO SCH (11:16)
[2018-03-29 11:54] LABS: Calcium 9.1 mg/dL (8.4-10.2); Potassium 4.3 mmol/L (3.5-5.1)
[2018-03-29] MEDS ORDERED: NON-FORMULARY DRUG (Omeprazole 40 MG) PO SCH (12:00)
[2018-03-29] MEDS ORDERED: NON-FORMULARY DRUG (Cranberry Fruit Extract [Cranberry] 500 MG) PO SCH (12:00)
[2018-03-29] MEDS: IOPAMIDOL-300 CONTRAST 30 ML VIAL (ORAL USE) PO PRN ×2 (12:20→13:11)
[2018-03-29 12:35] LABS: Glucose,Whole Blood 82 mg/dL (75-99)
--- NOTE | 2018-03-29 14:22 | CT ---
EXAMINATION TYPE: CT abdomen pelvis w con DATE OF EXAM: 03/29/2018 COMPARISON: X-ray 03/28/2018, CT scan 10/01/2017 HISTORY: Abdominal pain CT DLP: 927.5 mGycm Automated exposure control for dose reduction was used. CONTRAST: CT scan of the abdomen pelvis is performed with IV Contrast, patient injected with 100 mL of Isovue 3 00. FINDINGS- LUNG BASES-the heart is enlarged and there is a small bilateral pleural effusions and basilar consoli dation. Small pericardial effusion is seen and there are cardiac leads in changes of chronic intersti tial lung disease. Correlate for pulmonary fibrosis. Small hiatal hernia noted.. LIVER/GB-there is significant intrahepatic biliary dilation and severe extrahepatic biliary ductal di lation to the level of the ampulla bladder. Mucosal lesion in the differential diagnosis. There also appears to be a cystic-appearing mass within the body the pancreas measuring 3.1 cm. These findings a ppear progressed from the prior exam.. PANCREAS-there is a 3.1 cm mass involving the body of the pancreas. Mucinous neoplasm and cystic neop lasms of the pancreas in the differential diagnosis. Finding has been previously described. SPLEEN- No gross abnormality is seen. ADRENALS-subcentimeter left adrenal nodule stable. KIDNEYS/BLADDER-bladder wall is markedly thickened and there is abnormal attenuation in the region mcgowan rrounding the bladder suggestive of severe cystitis. Correlate clinically. Bilateral renal cysts are again noted without evidence of obstruction. No definite calcification seen. BOWEL-bowel gas pattern is nonspecific. There is no diagnostic evidence of obstruction. Contrast is s een exclusively within the small bowel although there is air throughout the colon to the level the re ctum. Mild small bowel prominence likely in the basis of a mild ileus. LYMPH NODES- No greater than 1cm abdominal or pelvic lymph nodes areappreciated. OSSEOUS STRUCTURES-facet arthropathy and degenerative changes of the spine. Multilevel severe degener ative disc disease with a grade 1 anterolisthesis L4 on L5. Severe facet arthropathy. Suspect canal s tenosis at this level. OTHER- calcifications appear to be related the uterus and likely on the basis of small uterine fibro ids. IMPRESSION- 1. The bladder wall is markedly thickened and there is abnormal attenuation diffusely surrounding the bladder suggestive of a severe cystitis. 2. There is mild small bowel dilation but no evidence of transition point. Air is seen throughout the colon correlate for a mild ileus. Would recommend a follow-up abdominal KUB to assess for passage of the contrast from the small bowel into the large bowel to exclude a partial obstruction. 3. There is severe biliary obstruction to the level of the ampulla of Vater. The common bile duct vanessa sures approximately 3.2 cm in dimension. No calcification is seen. Mucosal lesion in the differential diagnosis. 4. 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 Retrospectively stable from the prior exam of 10/01/2017. Report called to the patient's nurse.
[2018-03-29] MEDS: POLYETHYLENE GLYCOL 3350 17 GM POWD.PACK PO SCH (15:28)
[2018-03-29] MEDS: FERROUS SULFATE 325 MG TAB PO SCH (15:32)
[2018-03-29] MEDS: THYROID, PORK 30 MG TAB PO SCH (15:32)
[2018-03-29 17:06] LABS: Glucose,Whole Blood 90 mg/dL (75-99)
[2018-03-29] MEDS: EDOXABAN TOSYLATE 30 MG TABLET PO SCH (17:16)
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
[2018-03-29] MEDS ORDERED: EDOXABAN TOSYLATE 30 MG PO SCH (19:30)
[2018-03-29 20:09] LABS: Glucose,Whole Blood 110 mg/dL (75-99)
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
[2018-03-29] MEDS: INSULIN ASPART 100 UNIT/ML 1 ML 10 ML VIAL SQ SCH (20:38)
[2018-03-29] MEDS: metFORMIN 500 MG TAB PO SCH (20:42)
[2018-03-30 05:26] LABS: Basophils % (A) 0 %; Eosinophils # (A) 0.3 k/uL (0-0.7); Eosinophils % (A) 3 %; HCT 33.5 % (34.0-46.0); HGB 10.3 gm/dL (11.4-16.0); Hypochromasia Slight; Lymphocytes # (A) 1.1 k/uL (1.0-4.8); Lymphocytes % (A) 11 %; MCH 28.3 pg (25.0-35.0); MCHC 30.7 g/dL (31.0-37.0); MCV 92.2 fL (80.0-100.0); Mean Platelet Volume 6.6; Monocytes # (A) 0.6 k/uL (0-1.0); Monocytes % (A) 6 %; Neutrophils # (A) 7.7 k/uL (1.3-7.7); Neutrophils % (A) 79 %; Platelet Count 270 k/uL (150-450); RBC 3.63 m/uL (3.80-5.40); RDW 14.6 % (11.5-15.5); WBC 9.8 k/uL (3.8-10.6)
[2018-03-30 05:45] LABS: Albumin 3.1 g/dL (3.5-5.0); Calcium 8.6 mg/dL (8.4-10.2); Total Bilirubin 2.7 mg/dL (0.2-1.3); Total Protein 6.4 g/dL (6.3-8.2)
[2018-03-30] MEDS: SODIUM CHLORIDE 0.9% 1,000 ML IV SCH ×3 (06:04→21:43)
[2018-03-30 07:23] LABS: Glucose,Whole Blood 95 mg/dL (75-99)
[2018-03-30] MEDS: INSULIN ASPART 100 UNIT/ML 1 ML 10 ML VIAL SQ SCH ×4 (08:26→21:41)
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
[2018-03-30 12:05] LABS: Glucose,Whole Blood 80 mg/dL (75-99)
[2018-03-30] MEDS: THYROID, PORK 30 MG TAB PO SCH (12:10)
[2018-03-30] MEDS: metFORMIN 500 MG TAB PO SCH ×2 (12:12→18:46)
[2018-03-30] MEDS: METOPROLOL TARTRATE 25 MG TAB PO SCH ×2 (12:12→21:41)
[2018-03-30] MEDS: EDOXABAN TOSYLATE 30 MG TABLET PO SCH (12:12)
[2018-03-30] MEDS: amLODIPine 10 MG TAB PO SCH (12:12)
[2018-03-30] MEDS: POLYETHYLENE GLYCOL 3350 17 GM POWD.PACK PO SCH (12:13)
[2018-03-30] MEDS: FERROUS SULFATE 325 MG TAB PO SCH (12:13)
[2018-03-30 17:18] LABS: Glucose,Whole Blood 108 mg/dL (75-99)
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
[2018-03-30 20:24] LABS: Glucose,Whole Blood 157 mg/dL (75-99)
--- NOTE | 2018-03-31 06:34 | PN ---
PROGRESS NOTE DATE OF SERVICE: 03/30/2018 PRESENTING COMPLAINT: Overdose of Lomotil. INTERVAL HISTORY: The patient presented with overdose of Lomotil. The patient has some right upper quadrant pain. Liver enzymes have gone up. The patient in the past does not want any pancreatic mass workup per GI. Also, dilated gallbladder with common bile duct dilated. Also being seen by surgery. REVIEW OF SYSTEMS: Done for constitutional, cardiovascular, GI, pulmonary and findings as above. CURRENT MEDICATIONS: Reviewed that include IV ceftriaxone. PHYSICAL EXAMINATION: Temperature 98.2, pulse 60, respiration 16, blood pressure 145/74, pulse ox 95% on room air. GENERAL APPEARANCE: Lying in bed, awake. EYES: Pupils equal. Conjunctivae normal. NECK: JVD not raised. Mass not palpable. Respiratory effort normal. LUNGS: Decreased breath sounds. CARDIOVASCULAR: First and second sounds normal. No edema. ABDOMEN: Some right upper quadrant tenderness. Liver and spleen not palpable. PSYCHIATRY: Awake, answering questions. INVESTIGATIONS: White count 9.8, hemoglobin 10.3, potassium 4, BUN 17, creatinine 0.99, total bilirubin 2.7, AST 304, ALT 321. ASSESSMENT: 1. Acute viral gastroenteritis, self-limiting. 2. Lomotil overdose. 3. Early ileus secondary Lomotil, clinically improved. 4. Essential hypertension. 5. Diabetes mellitus type 2 on oral hypoglycemic. 6. Chronic urinary stress incontinence. 7. Peripheral neuropathy secondary to diabetes. 8. Depression, not otherwise specified. 9. Chronic gallbladder distention with common bile duct dilatation. 10.Obstructive hepatitis. 11.Pancreatic body mass 3.1 cm. The patient has declined workup in the past. PLAN: Continue medication and treatment plan. The patient was seen by Dr. Packer from General Surgery. At this point, no further intervention from surgery. The patient's son is apparently going to speak to Dr. Noel. We will go from there. MMODL / IJN: [id number] /
[2018-03-31 07:17] LABS: Glucose,Whole Blood 120 mg/dL (75-99)
[2018-03-31 07:42] LABS: Albumin 3.1 g/dL (3.5-5.0); Calcium 8.7 mg/dL (8.4-10.2); Total Bilirubin 1.1 mg/dL (0.2-1.3); Total Protein 6.3 g/dL (6.3-8.2)
[2018-03-31 08:04] LABS: Potassium 4.1 mmol/L (3.5-5.1)
[2018-03-31] MEDS: INSULIN ASPART 100 UNIT/ML 1 ML 10 ML VIAL SQ SCH ×4 (08:18→20:30)
[2018-03-31] MEDS: FERROUS SULFATE 325 MG TAB PO SCH (09:42)
[2018-03-31] MEDS: metFORMIN 500 MG TAB PO SCH ×2 (09:42→19:58)
[2018-03-31] MEDS: amLODIPine 10 MG TAB PO SCH (09:42)
[2018-03-31] MEDS: THYROID, PORK 30 MG TAB PO SCH (09:42)
[2018-03-31] MEDS: EDOXABAN TOSYLATE 30 MG TABLET PO SCH (09:42)
[2018-03-31] MEDS: METOPROLOL TARTRATE 25 MG TAB PO SCH ×2 (09:42→20:30)
[2018-03-31] MEDS: POLYETHYLENE GLYCOL 3350 17 GM POWD.PACK PO SCH (09:47)
--- NOTE | 2018-03-31 11:20 | P.PN ---
Subjective Progress Note Date: 03/30/18 Objective - Vital Signs Vital signs: Vital Signs Temp 98.4 F 03/31/18 07:00 Pulse 63 03/31/18 07:00 Resp 18 03/31/18 07:00 BP 152/73 03/31/18 07:00 Pulse Ox 92 L 03/30/18 23:57 Intake & Output 03/30/18 03/31/18 03/31/18 18:59 06:59 18:59 Intake Total 600 700 296 Balance 600 700 296 Weight 81.647 kg Intake: Intake, IV Titration 600 700 Amount Sodium Chloride 0.9% 1, 600 700 000 ml @ 100 mls/hr IV . Q10H [facility] Rx#:[id number] Oral 296 Other: Voiding Method Incontinent # Voids 1 1 1 - Exam CHIEF COMPLAINT: Pancreatic mass with drug toxicity HISTORY OF PRESENT ILLNESS: The patient is a 82-year-old female admitted secondary to ileus with incidental finding of pancreatic mass including intrahepatic ductal dilation. She is resting comfortably. No complaints today. PHYSICAL EXAM: VITAL SIGNS: Reviewed GENERAL: Well-developed in no acute distress. Head is atraumatic, normocephalic. No nasal drainage. NECK: Supple without lymphadenopathy. CHEST: Non-labored respirations and equal bilateral excursions. CARDIOVASCULAR: Palpable 2+ radial pulses. Irregular rate. Regular rhythm ABDOMEN: Soft. No peritonitis. MUSCULOSKELETAL: No clubbing, cyanosis or edema. NEUROLOGIC: No focal or lateralizing signs. PSYCH: Appropriate affect. Alert and oriented to person SKIN: Well perfused. LABS: Reviewed STUDIES: Reviewed ASSESSMENT: 1. Pancreatic mass with intrahepatic ductal dilation 2. Elevated liver enzymes 3. Drug toxicity due to Lomotil with ileus PLAN: 1. No surgical intervention however recommend transfer to tertiary care center for further workup of pancreatic lesion. 2. Monitor liver enzymes - Labs CBC & Chem 7: 03/30/18 04:56 03/31/18 06:52 Labs: Abnormal Lab Results - Last 24 Hours (Table) 03/30/18 03/30/18 03/31/18 Range/Units 17:17 20:23 06:52 Chloride 113 H (98-107) mmol/L Glucose 104 H (74-99) mg/dL POC Glucose (mg/dL) 108 H 157 H (75-99) mg/dL AST 105 H (14-36) U/L ALT 211 H (9-52) U/L Alkaline Phosphatase 247 H (38-126) U/L Albumin 3.1 L (3.5-5.0) g/dL 03/31/18 Range/Units 07:16 Chloride (98-107) mmol/L Glucose (74-99) mg/dL POC Glucose (mg/dL) 120 H (75-99) mg/dL AST (14-36) U/L ALT (9-52) U/L Alkaline Phosphatase (38-126) U/L Albumin (3.5-5.0) g/dL Assessment and Plan (1) Lomotil use disorder, severe Current Visit: Yes Status: Acute Code(s): F11.20 - OPIOID DEPENDENCE, UNCOMPLICATED SNOMED Code(s): 79867509 (2) Common bile duct dilatation Current Visit: Yes Status: Acute Code(s): K83.8 - OTHER SPECIFIED DISEASES OF BILIARY TRACT SNOMED Code(s): 787151934 (3) Elevated liver enzymes Current Visit: Yes Status: Acute Code(s): R74.8 - ABNORMAL LEVELS OF OTHER SERUM ENZYMES SNOMED Code(s): 140202652 (4) Ileus Current Visit: Yes Status: Acute Code(s): K56.7 - ILEUS, UNSPECIFIED SNOMED Code(s): 127385949 (5) Pancreatic cyst Current Visit: Yes Status: Acute Code(s): K86.2 - CYST OF PANCREAS SNOMED Code(s): 79787695
[2018-03-31 12:12] LABS: Glucose,Whole Blood 157 mg/dL (75-99)
--- NOTE | 2018-03-31 14:30 | P.PN ---
Subjective Progress Note Date: 03/31/18 CHIEF COMPLAINT: Pancreatic mass with drug toxicity HISTORY OF PRESENT ILLNESS: The patient is a 82-year-old female admitted secondary to ileus with incidental finding of pancreatic mass including intrahepatic ductal dilation. She is tolerating soft diet. She reports this excruciating pain is now resolved. She reports mild ache along the epigastrium. No nausea and vomiting. She is concerned that she hasn't had a bowel movement PHYSICAL EXAM: VITAL SIGNS: Reviewed GENERAL: Well-developed in no acute distress. Head is atraumatic, normocephalic. No nasal drainage. NECK: Supple without lymphadenopathy. CHEST: Non-labored respirations and equal bilateral excursions. CARDIOVASCULAR: Palpable 2+ radial pulses. Irregular rate. Regular rhythm ABDOMEN: Soft. Nondistended. No peritonitis. MUSCULOSKELETAL: No clubbing, cyanosis or edema. NEUROLOGIC: No focal or lateralizing signs. Cranial nerves II-12 intact PSYCH: Appropriate affect. Alert and oriented to person SKIN: Well perfused. LABS: Reviewed ASSESSMENT: 1. Pancreatic mass with intrahepatic ductal dilation 2. Elevated liver enzymes 3. Drug toxicity due to Lomotil with ileus PLAN: 1. Liver enzymes are overall improved from yesterday. 2. Diet as tolerated. 3. May benefit from alternatives for constipation such as rectal suppository Objective - Vital Signs Vital signs: Vital Signs Temp 98.4 F 03/31/18 07:00 Pulse 63 03/31/18 07:00 Resp 18 03/31/18 07:00 BP 152/73 03/31/18 07:00 Pulse Ox 92 L 03/30/18 23:57 Intake & Output 03/30/18 03/31/18 03/31/18 18:59 06:59 18:59 Intake Total 600 700 296 Balance 600 700 296 Weight 81.647 kg Intake: Intake, IV Titration 600 700 Amount Sodium Chloride 0.9% 1, 600 700 000 ml @ 100 mls/hr IV . Q10H [facility] Rx#:[id number] Oral 296 Other: Voiding Method Incontinent # Voids 1 1 1 - Labs CBC & Chem 7: 03/30/18 04:56 03/31/18 06:52 Labs: Abnormal Lab Results - Last 24 Hours (Table) 03/30/18 03/30/18 03/31/18 Range/Units 17:17 20:23 06:52 Chloride 113 H (98-107) mmol/L Glucose 104 H (74-99) mg/dL POC Glucose (mg/dL) 108 H 157 H (75-99) mg/dL AST 105 H (14-36) U/L ALT 211 H (9-52) U/L Alkaline Phosphatase 247 H (38-126) U/L Albumin 3.1 L (3.5-5.0) g/dL 03/31/18 03/31/18 Range/Units 07:16 12:11 Chloride (98-107) mmol/L Glucose (74-99) mg/dL POC Glucose (mg/dL) 120 H 157 H (75-99) mg/dL AST (14-36) U/L ALT (9-52) U/L Alkaline Phosphatase (38-126) U/L Albumin (3.5-5.0) g/dL Assessment and Plan (1) Lomotil use disorder, severe Current Visit: Yes Status: Acute Code(s): F11.20 - OPIOID DEPENDENCE, UNCOMPLICATED SNOMED Code(s): 26174210 (2) Common bile duct dilatation Current Visit: Yes Status: Acute Code(s): K83.8 - OTHER SPECIFIED DISEASES OF BILIARY TRACT SNOMED Code(s): 084765899 (3) Elevated liver enzymes Current Visit: Yes Status: Acute Code(s): R74.8 - ABNORMAL LEVELS OF OTHER SERUM ENZYMES SNOMED Code(s): 001438396 (4) Ileus Current Visit: Yes Status: Acute Code(s): K56.7 - ILEUS, UNSPECIFIED SNOMED Code(s): 692885963 (5) Pancreatic cyst Current Visit: Yes Status: Acute Code(s): K86.2 - CYST OF PANCREAS SNOMED Code(s): 66341842
[2018-03-31] MEDS ORDERED: BISACODYL 10 MG SUPP RECTAL STA (14:31)
[2018-03-31] MEDS: SODIUM CHLORIDE 0.9% 1,000 ML IV SCH ×2 (17:15→19:58)
[2018-03-31 17:18] LABS: Glucose,Whole Blood 130 mg/dL (75-99)
[2018-03-31 20:21] LABS: Glucose,Whole Blood 145 mg/dL (75-99)
--- NOTE | 2018-03-31 21:35 | P.PN ---
Subjective Progress Note Date: 03/31/18 Principal diagnosis: Dilated common bile duct, pancreatic cyst, over use of antidiarrheals Patient lying in bed in no acute complaints. No acute events overnight. Objective - Vital Signs Vital signs: Vital Signs Temp 98.0 F 03/31/18 20:34 Pulse 92 03/31/18 20:34 Resp 18 03/31/18 20:34 BP 180/80 03/31/18 20:34 Pulse Ox 95 03/31/18 15:00 Intake & Output 03/31/18 03/31/18 04/01/18 06:59 18:59 06:59 Intake Total 700 1588 200 Balance 700 1588 200 Weight 81.647 kg Intake: Intake, IV Titration 700 700 200 Amount Sodium Chloride 0.9% 1, 700 700 200 000 ml @ 100 mls/hr IV . Q10H [facility] Rx#:[id number] Oral 888 Other: Voiding Method Incontinent Toilet Incontinent # Voids 1 1 - Exam On physical examination, patient appears comfortable in no apparent distress. HEAD: Normocephalic, atraumatic. EYES: No scleral icterus. No conjunctival injection. MOUTH: No lesions, tongue midline. NECK: Trachea midline, no gross abnormalities. CHEST: Clear to auscultation with no wheezing or rhonchi appreciated. ABDOMEN: Soft, obese. Bowel sounds are positive. No organomegaly. No guarding or rigidity. EXTREMITIES: No pedal edema. SKIN: No rashes, no jaundice. NEUROLOGIC: Alert and oriented x3. Hard of hearing. - Labs CBC & Chem 7: 03/30/18 04:56 03/31/18 06:52 Labs: Abnormal Lab Results - Last 24 Hours (Table) 03/31/18 03/31/18 03/31/18 Range/Units 06:52 07:16 12:11 Chloride 113 H (98-107) mmol/L Glucose 104 H (74-99) mg/dL POC Glucose (mg/dL) 120 H 157 H (75-99) mg/dL AST 105 H (14-36) U/L ALT 211 H (9-52) U/L Alkaline Phosphatase 247 H (38-126) U/L Albumin 3.1 L (3.5-5.0) g/dL 03/31/18 03/31/18 Range/Units 17:17 20:21 Chloride (98-107) mmol/L Glucose (74-99) mg/dL POC Glucose (mg/dL) 130 H 145 H (75-99) mg/dL AST (14-36) U/L ALT (9-52) U/L Alkaline Phosphatase (38-126) U/L Albumin (3.5-5.0) g/dL Assessment and Plan (1) Elevated liver enzymes Narrative/Plan: Cholestatic and hepatocellular pattern of unknown etiology, this may be related to obstruction in the setting of known pancreatic mass, ampullary stenosis or other etiology. Current Visit: Yes Status: Acute Code(s): R74.8 - ABNORMAL LEVELS OF OTHER SERUM ENZYMES SNOMED Code(s): 812447245 (2) Common bile duct dilatation Current Visit: Yes Status: Acute Code(s): K83.8 - OTHER SPECIFIED DISEASES OF BILIARY TRACT SNOMED Code(s): 024097030 (3) Pancreatic cyst Current Visit: Yes Status: Acute Code(s): K86.2 - CYST OF PANCREAS SNOMED Code(s): 26607293 (4) Ileus Narrative/Plan: In the setting of antidiarrheal use. Current Visit: Yes Status: Acute Code(s): K56.7 - ILEUS, UNSPECIFIED SNOMED Code(s): 603717263 Plan: Supportive care Appreciate surgical recommendations Okay to start diet when symptomatically improving Monitor liver enzymes, trended down today Lengthy discussion with the patient's son Nael who is her DURABLE POWER OF PROCUREMENT SPECIALIST about the options of possible ERCP versus referral to tertiary center for evaluation for both ERCP and endoscopic ultrasound, at this time his wishes are that the patient be transferred to [facility] for further evaluation Case discussed with Dr. Ceballos Will hold anticoagulation in anticipation of ERCP Thank you for allowing us to participate in the care of this patient we will continue to follow
--- NOTE | 2018-04-01 01:19 | PN ---
PROGRESS NOTE DATE OF SERVICE: March 31, 2018. PRESENTING COMPLAINT: Overdose of Lomotil. INTERVAL HISTORY: This patient had an overdose Lomotil, also having right upper quadrant pain. Patient also had a pancreatic mass and liver enzymes had been going up. Has a dilated gallbladder with common bile duct. Abdominal pain is stable. The patient is on a full liquid diet. REVIEW OF SYSTEMS: Done for constitutional, cardiovascular, GI, pulmonary; relevant findings as above. CURRENT MEDICATIONS: Reviewed that include IV ceftriaxone. PHYSICAL EXAMINATION: VITAL SIGNS: Temperature 98.1, pulse 62, respirations 16, blood pressure 107/71, pulse ox 95% on room air. GENERAL APPEARANCE: Lying in bed, awake comfortable. EYES: Pupils are equal. Conjunctivae normal. NECK: JVD not raised. Mass not palpable. RESPIRATORY: Effort. LUNGS: Decreased breath sounds. CARDIOVASCULAR: 1st and 2nd sounds no edema. ABDOMEN: Some right upper quadrant tenderness. Soft. Liver and spleen not palpable. PSYCHIATRY: Awake, answering questions. INVESTIGATIONS: Potassium 4.1, AST 105, ALT 211, total bilirubin 0.51. ASSESSMENT: 1. Acute viral gastroenteritis self-limiting on presentation. 2. Lomotil overdose. 3. Early ileus secondary Lomotil much improved. 4. Essential hypertension. 5. Diabetes mellitus type 2 on oral hypoglycemic. 6. Chronic urinary stress incontinence. 7. Peripheral neuropathy secondary to diabetes. 8. Depression, not otherwise specified. 9. Gallbladder distention with common bile duct dilatation with a picture of obstructive hepatitis. Also note that the patient has a pancreatic body mass 3.1 cm. It may be noted that the pancreatic duct is not dilated and this could be simply an obstruction at the ampulla of Vater and the pancreatic mass, which has not changed in size, could be just this surrounding finding. PLAN: Did discuss at length with Dr. Noel and looked at the pros and cons. The patient probably also will need endoscopic ultrasound. Did ask him to speak to the patient's son and to clarify the situation. Dr. Noel did get back to me stating that the patient's son would like the patient to be transferred to [facility] where an endoscopic ultrasound can also be done. Patient did have LFTs, have started to come down, which may point more towards unknown permanent obstruction. Total spent time today was 140 minutes with more than 25 minutes of discussion. MMODL / IJN: [id number] /
[2018-04-01] MEDS: SODIUM CHLORIDE 0.9% 1,000 ML IV SCH ×2 (05:12→17:55)
[2018-04-01 07:14] LABS: Glucose,Whole Blood 115 mg/dL (75-99)
[2018-04-01] MEDS: INSULIN ASPART 100 UNIT/ML 1 ML 10 ML VIAL SQ SCH ×3 (08:28→17:54)
[2018-04-01] MEDS: THYROID, PORK 30 MG TAB PO SCH (09:09)
[2018-04-01] MEDS: POLYETHYLENE GLYCOL 3350 17 GM POWD.PACK PO SCH (09:09)
[2018-04-01] MEDS: METOPROLOL TARTRATE 25 MG TAB PO SCH (09:10)
[2018-04-01] MEDS: FERROUS SULFATE 325 MG TAB PO SCH (09:10)
[2018-04-01] MEDS: metFORMIN 500 MG TAB PO SCH ×2 (09:10→17:58)
[2018-04-01] MEDS: amLODIPine 10 MG TAB PO SCH (09:10)
--- NOTE | 2018-04-01 13:47 | P.PN ---
Subjective Progress Note Date: 04/01/18 Principal diagnosis: Ileus Patient tolerating full liquids. Apparently she felt that the chopped diet had foods that she was having difficulty ingesting. She is having good bowel function. She has had some right upper quadrant pain. GI has been discussing with the patient and the family the options of further evaluation of her biliary obstruction. There is some discussion about possible transfer to tertiary care center. Objective - Vital Signs Vital signs: Vital Signs Temp 98.4 F 04/01/18 08:16 Pulse 58 L 04/01/18 08:16 Resp 16 04/01/18 08:16 BP 148/71 04/01/18 08:16 Pulse Ox 91 L 04/01/18 08:16 Intake & Output 03/31/18 04/01/18 04/01/18 18:59 06:59 18:59 Intake Total 1588 900 Balance 1588 900 Weight 81.647 kg 81.647 kg Intake: Intake, IV Titration 700 900 Amount Sodium Chloride 0.9% 1, 700 900 000 ml @ 100 mls/hr IV . Q10H [facility] Rx#:[id number] Oral 888 Other: Voiding Method Incontinent Toilet Toilet Incontinent Incontinent # Voids 1 2 # Bowel Movements 1 - Exam Abdomen: Soft, nontender, nondistended - Labs CBC & Chem 7: 03/30/18 04:56 03/31/18 06:52 Labs: Abnormal Lab Results - Last 24 Hours (Table) 03/31/18 03/31/18 04/01/18 Range/Units 17:17 20:21 07:12 POC Glucose (mg/dL) 130 H 145 H 115 H (75-99) mg/dL Assessment and Plan (1) Ileus Narrative/Plan: Advance diet as tolerated. Await decision regarding transfer to tertiary care for further evaluation of elevated pancreatic enzymes and biliary obstruction. Current Visit: Yes Status: Acute Code(s): K56.7 - ILEUS, UNSPECIFIED SNOMED Code(s): 706308728
[2018-04-01 14:50] LABS: Albumin 3.4 g/dL (3.5-5.0); Potassium 4.5 mmol/L (3.5-5.1); Total Bilirubin 0.7 mg/dL (0.2-1.3); Total Protein 6.9 g/dL (6.3-8.2)
[2018-04-01 15:43] VITALS: BP 146/83; PULSE 64; RESP 19; TEMP 98
[2018-04-01 17:32] LABS: Glucose,Whole Blood 106 mg/dL (75-99)
--- NOTE | 2018-04-02 06:50 | DS ---
DISCHARGE SUMMARY DATE OF ADMISSION: 03/28/2018 DATE OF TRANSFER: 04/01/2018 FINAL DIAGNOSES: 1. Acute viral gastroenteritis self-limiting on presentation. 2. Lomotil overdose, present on admission. 3. Acute ileus secondary to Lomotil, present on admission. 4. Essential hypertension. 5. Diabetes mellitus type 2 on oral hypoglycemic. 6. Chronic urinary stress incontinence. 7. Peripheral neuropathy secondary to diabetes. 8. Depression, not otherwise specified. 9. Pancreatic body mass 3.1 cm. 10.Common bile duct and gallbladder distention possibly from ampulla of Vater obstruction or may be related to pancreatic mass. CONSULTATION: Dr. Albania Clark from Cardiology; Dr. Noel from GI and Dr. Cross from General Surgery. HOSPITAL COURSE: This patient who at home was having nausea, vomiting, diarrhea, took about 6 to 7 pills of Lomotil. Admitted for the same. Subsequently patient was found to have distended gallbladder with dilated bile duct of 3.2 cm. LFTs were also up in the 300s. The bilirubin also had gone up to 2.7. I spoke to Dr. Noel today who also spoke to the son. It was felt that the patient may need an endoscopic ultrasound; hence, she may be better served at a higher level of care. Son was agreeable to that. Dr. Noel talked to him and patient is being transferred to [facility] today. I did speak to the accepting physician at [facility]. Also spoke to Dr. Noel earlier today. I also spoke to the patient. PHYSICAL EXAMINATION: On examination, temperature 98, pulse 64, respiration 19, blood pressure 146/83, pulse ox 94% on room air. ABDOMEN: Soft, nontender. LABS: Bilirubin 0.7, AST 43, ALT 145. DISPOSITION: [facility] downtown to the medical service for higher level of care. CURRENT MEDICATIONS: 1. Cranberry 500 mg b.i.d. 2. Omeprazole 40 mg daily. 3. V-C Forte 1 capsule p.o. daily. 4. Lopressor 25 p.o. b.i.d. 5. Norvasc 10 mg p.o. daily. 6. Iron. 7. Lovaza 2 grams p.o. b.i.d. 8. MiraLAX 17 grams p.o. daily. 9. Thyroid, Pork, 60 mg p.o. daily. 10.Metformin 500 mg b.i.d. 11.Insulin per scale. Follows with Visiting Physician psanchez. The patient does follow with [facility]. Discussion and discharge planning transfer more than 35 minutes. PATTI / CLARITAN: [id number] /
== END 2018-04-01 20:01 | disposition short-term general hospital (02) | DRG 389 ==
LOC: EC 18:00 → 4SSUR 20:49
PROVIDERS: ADMIT Hospitalist; ATTEND Hospitalist
DX: K56.7 Ileus, unspecified (principal); K86.2 Cyst of pancreas; T47.6X1A Poisoning by antidiarrheal drugs, accidental (unintentional), initial encounter; A08.4 Viral intestinal infection, unspecified; E03.9 Hypothyroidism, unspecified; E11.42 Type 2 diabetes mellitus with diabetic polyneuropathy; F32.9 Major depressive disorder, single episode, unspecified; H91.90 Unspecified hearing loss, unspecified ear; I10 Essential (primary) hypertension; I27.20 Pulmonary hypertension, unspecified; I48.0 Paroxysmal atrial fibrillation; J42 Unspecified chronic bronchitis; K75.89 Other specified inflammatory liver diseases; I08.3 Combined rheumatic disorders of mitral, aortic and tricuspid valves; K82.8 Other specified diseases of gallbladder; N30.90 Cystitis, unspecified without hematuria; N39.3 Stress incontinence (female) (male); K57.90 Diverticulosis of intestine, part unspecified, without perforation or abscess without bleeding; I44.0 Atrioventricular block, first degree; Z79.01 Long term (current) use of anticoagulants; Z79.84 Long term (current) use of oral hypoglycemic drugs; Z79.899 Other long term (current) drug therapy; Z95.0 Presence of cardiac pacemaker; Z87.891 Personal history of nicotine dependence; Z88.2 Allergy status to sulfonamides; Z90.49 Acquired absence of other specified parts of digestive tract; Z82.49 Family history of ischemic heart disease and other diseases of the circulatory system; Y92.009 Unspecified place in unspecified non-institutional (private) residence as the place of occurrence of the external cause
CPT/HCPCS: 36415; 74018; 74177; 80048; 80053; 81001; 83690; 84484; 85025; 93005; 94760; 96361; 96374; 99285

== ENCOUNTER 2018-04-25 22:40 | Emergency (ER) | payer MEDICARE, OTHER ==
[2018-04-25] MEDS ORDERED: SODIUM CHLORIDE 0.9% 1,000 ML IV STA (22:52)
[2018-04-25] MEDS ORDERED: ONDANSETRON 4 MG/2 ML VIAL IVP STA (22:52)
[2018-04-25 23:03] LABS: Basophils # (A) 0.1 k/uL (0-0.2); Basophils % (A) 1 %; Eosinophils # (A) 0.4 k/uL (0-0.7); Eosinophils % (A) 5 %; HCT 32.8 % (34.0-46.0); HGB 10.7 gm/dL (11.4-16.0); Lymphocytes # (A) 2.4 k/uL (1.0-4.8); Lymphocytes % (A) 29 %; MCH 29.4 pg (25.0-35.0); MCHC 32.5 g/dL (31.0-37.0); MCV 90.4 fL (80.0-100.0); Mean Platelet Volume 6.9; Monocytes # (A) 0.6 k/uL (0-1.0); Monocytes % (A) 7 %; Neutrophils # (A) 4.6 k/uL (1.3-7.7); Neutrophils % (A) 57 %; Platelet Count 220 k/uL (150-450); RBC 3.63 m/uL (3.80-5.40); RDW 14.5 % (11.5-15.5); WBC 8.2 k/uL (3.8-10.6)
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
[2018-04-25 23:12] LABS: Calcium 9.4 mg/dL (8.4-10.2); Potassium 4.8 mmol/L (3.5-5.1); Total Bilirubin 0.4 mg/dL (0.2-1.3); Total Protein 7.5 g/dL (6.3-8.2)
--- NOTE | 2018-04-25 23:42 | XR ---
EXAM: XR Abdomen, 1 View CLINICAL HISTORY: ITS.REASON XR Reason: pain TECHNIQUE: Frontal supine view of the abdomen/pelvis. COMPARISON: Abdominal radiographs on 03/28/2018 FINDINGS: Hardware: None. Abdomen: Nonspecific but nonobstructive bowel gas pattern. No free air. Presumed phleboliths in the pelvis. Bones: Degenerative changes of the spine. Mild degenerative changes of the hips. Soft tissues: Normal. Lower chest: Pacer wire partially visualized over the heart. Mitral annular calcifications. Left basilar opacity. IMPRESSION: Nonspecific but nonobstructive bowel gas pattern. No free air.
[2018-04-25 23:59] LABS: Appearance,Urine Cloudy (Clear); Bacteria,Urine Rare /hpf; Bilirubin,Urine Negative (Negative); Blood,Urine Moderate (Negative); Budding Yeast,Urine Rare /hpf; Color,Urine Yellow; Glucose,Urine (UA) Negative (Negative); Hyaline Casts,Urine 7 /lpf (0-2); Ketones,Urine Negative (Negative); Leukocyte Esterase,Urine Large (Negative); Mucus,Urine Rare /hpf; Nitrite,Urine Negative (Negative); Protein,Urine Trace (Negative); RBC,Urine >182 /hpf (0-5); Specific Gravity,Urine 1.009 (1.001-1.035); Squamous Epithelial Cell,Urine 6 /hpf (0-4); Urobilinogen,Urine <2.0 mg/dL (<2.0)
[2018-04-26 01:34] VITALS: BP 148/74; PULSE 67; RESP 16; TEMP 97.8
== END 2018-04-26 01:11 | disposition home or self-care (01) ==
LOC: EC 22:40
DX: R19.7 Diarrhea, unspecified (principal); N39.0 Urinary tract infection, site not specified; R79.89 Other specified abnormal findings of blood chemistry; E11.42 Type 2 diabetes mellitus with diabetic polyneuropathy; E07.9 Disorder of thyroid, unspecified; Z53.20 Procedure and treatment not carried out because of patient's decision for unspecified reasons; Z87.891 Personal history of nicotine dependence; Z88.2 Allergy status to sulfonamides; Z79.84 Long term (current) use of oral hypoglycemic drugs; Z79.890 Hormone replacement therapy; Z79.899 Other long term (current) drug therapy; Z87.19 Personal history of other diseases of the digestive system; Z90.49 Acquired absence of other specified parts of digestive tract; Z95.0 Presence of cardiac pacemaker
CPT/HCPCS: 36415; 74018; 80053; 81001; 83690; 85025; 87077; 87086; 87186; 96360; 96361; 99285

== ENCOUNTER 2018-07-26 23:52 | Observation (INO) | payer MEDICARE, OTHER ==
[2018-07-26] MEDS ORDERED: ASPIRIN 81 MG PO STA (23:58)
[2018-07-27 00:16] LABS: Basophils # (A) 0.1 k/uL (0-0.2); Basophils % (A) 1 %; Eosinophils # (A) 0.4 k/uL (0-0.7); Eosinophils % (A) 5 %; HCT 32.8 % (34.0-46.0); HGB 10.4 gm/dL (11.4-16.0); Lymphocytes # (A) 2.2 k/uL (1.0-4.8); Lymphocytes % (A) 28 %; MCH 28.5 pg (25.0-35.0); MCHC 31.8 g/dL (31.0-37.0); MCV 89.5 fL (80.0-100.0); Mean Platelet Volume 7.2; Monocytes # (A) 0.5 k/uL (0-1.0); Monocytes % (A) 7 %; Neutrophils # (A) 4.4 k/uL (1.3-7.7); Neutrophils % (A) 56 %; Platelet Count 312 k/uL (150-450); RBC 3.66 m/uL (3.80-5.40); RDW 14.2 % (11.5-15.5); WBC 7.8 k/uL (3.8-10.6)
--- NOTE | 2018-07-27 00:23 | XR ---
EXAM: XR Chest, 2 Views CLINICAL HISTORY: Chest pain TECHNIQUE: Frontal and lateral views of the chest. COMPARISON: Chest x-ray dated 10/09/2017 FINDINGS: Lungs: Question subtle diffuse airspace opacities which may represent pulmonary vascular congestion versus an infectious process. Pleural space: Unremarkable. No pneumothorax. Heart: Heart is enlarged. Mediastinum: Unremarkable. Bones/joints: Multilevel degenerative changes of the spine. Tubes, lines and devices: Single-lead cardiac pacemaker. IMPRESSION: Question subtle diffuse airspace opacities which may represent pulmonary vascular congestion versus an infectious process.
[2018-07-27 00:27] LABS: Partial Thromboplastin Time 26.6 sec (22.0-30.0); Prothrombin Time 10.3 sec (9.0-12.0)
[2018-07-27 00:30] LABS: Albumin 4.1 g/dL (3.5-5.0); Calcium 9.3 mg/dL (8.4-10.2); Magnesium 2.4 mg/dL (1.6-2.3); Potassium 4.7 mmol/L (3.5-5.1); Total Bilirubin 0.4 mg/dL (0.2-1.3); Total Protein 7.9 g/dL (6.3-8.2)
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
[2018-07-27] MEDS ORDERED: NITROGLYCERIN SL TABS 0.4 MG TAB SUBLINGUAL PRN (00:54)
[2018-07-27] MEDS ORDERED: PANTOPRAZOLE 40 MG TABLET PO SCH (07:30)
[2018-07-27 08:24] LABS: Glucose,Whole Blood 122 mg/dL (75-99)
[2018-07-27] MEDS: INSULIN ASPART (NovoLOG) 100 UNIT/ML VIAL SQ SCH ×2 (08:24→11:37)
[2018-07-27] MEDS ORDERED: amLODIPine 10 MG TAB PO SCH (09:00)
[2018-07-27] MEDS ORDERED: THYROID, PORK 30 MG TAB PO SCH (09:00)
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
[2018-07-27] MEDS ORDERED: LEVOTHYROXINE 50 MCG TAB PO SCH (10:45)
[2018-07-27 11:28] VITALS: BMI 34.5
[2018-07-27 11:32] LABS: Glucose,Whole Blood 125 mg/dL (75-99)
[2018-07-27 11:43] VITALS: RESP 16
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
[2018-07-27] MEDS ORDERED: LORATADINE 10 MG TAB PO SCH (15:15)
[2018-07-27 16:14] VITALS: BP 127/73; PULSE 61; TEMP 98.2
[2018-07-27] MEDS ORDERED: guaiFENesin 600 MG TABLET.ER PO SCH (21:00)
[2018-07-27] MEDS ORDERED: METOPROLOL TARTRATE 25 MG TAB PO SCH (21:00)
[2018-07-28] MEDS ORDERED: LEVOTHYROXINE 50 MCG TAB PO SCH ×2 (06:30→10:00)
--- NOTE | 2018-07-28 08:31 | ECHOF ---
Referral Reason:cp MEASUREMENTS -------- HEIGHT: 157.5 cm WEIGHT: 79.4 kg BP: RVIDd: 2.5 cm (< 3.3) IVSd: 1.2 cm (0.6 - 1.1) LVIDd: 4.1 cm (3.9 - 5.3) LVPWd: 1.6 cm (0.6 - 1.1) IVSs: 1.6 cm LVIDs: 2.3 cm LVPWs: 2.2 cm LAESV Index (A-L): 68.20 ml/m Ao Diam: 2.4 cm (2.0 - 3.7) AV Cusp: 1.4 cm (1.5 - 2.6) LA Diam: 3.7 cm (2.7 - 3.8) MV EXCURSION: 16.312 mm (> 18.000) MV EF SLOPE: 56 mm/s (70 - 150) EPSS: 0.6 cm MV E Johnnie: 0.97 m/s MV DecT: 319 ms MV A Johnnie: 0.94 m/s MV E/A Ratio: 1.04 AV maxP.12 mmHg AV meanP.73 mmHg RAP: 5.00 mmHg RVSP: 40.14 mmHg FINDINGS -------- Paced rhythm. This was a technically good study. The left ventricular size is normal. There is moderate concentric left ventricular hypertrophy. O verall left ventricular systolic function is low-normal with, an EF between 50 - 55 %. The right ventricle is normal in size. LA is severely dilated >40 ml/m2 The right atrial size is normal. Interatrial and interventricular septum intact. Aortic valve is trileaflet and is mildly thickened. There is moderate aortic stenosis present. Pe ak/mean gradient across the Aortic Valve is 37.12mmHg / 19.73mmHg. The mitral valve leaflets are mildly thickened. Mild mitral annular calcification present. Mild m itral regurgitation is present. Mild tricuspid regurgitation present. There is mild pulmonary hypertension. The right ventricular systolic pressure, as measured by Doppler, is 40.14mmHg. Trace/mild (physiologic) pulmonic regurgitation. The aortic root size is normal. Normal inferior vena cava with normal inspiratory collapse consistent with estimated right atrial pre ssure of 5 mmHg. There is no pericardial effusion. CONCLUSIONS -------- 1. Paced rhythm. 2. This was a technically good study. 3. The left ventricular size is normal. 4. There is moderate concentric left ventricular hypertrophy. 5. Overall left ventricular systolic function is low-normal with, an EF between 50 - 55 %. 6. The right ventricle is normal in size. 7. LA is severely dilated >40 ml/m2 8. The right atrial size is normal. 9. Interatrial and interventricular septum intact. 10. Aortic valve is trileaflet and is mildly thickened. 11. There is moderate aortic stenosis present. 12. Peak/mean gradient across the Aortic Valve is 37.12mmHg / 19.73mmHg. 13. The mitral valve leaflets are mildly thickened. 14. Mild mitral annular calcification present. 15. Mild mitral regurgitation is present. 16. Mild tricuspid regurgitation present. 17. There is mild pulmonary hypertension. 18. The right ventricular systolic pressure, as measured by Doppler, is 40.14mmHg. 19. Trace/mild (physiologic) pulmonic regurgitation. 20. The aortic root size is normal. 21. Normal inferior vena cava with normal inspiratory collapse consistent with estimated right atrial pressure of 5 mmHg. 22. There is no pericardial effusion. FLOOR FINISHER: Wanda Prater RD
[2018-07-28] MEDS ORDERED: ASPIRIN 325 MG TAB PO SCH (09:00)
[2018-07-28] MEDS ORDERED: EDOXABAN TOSYLATE 30 MG TABLET PO SCH (10:00)
[2018-07-28] MEDS ORDERED: POLYETHYLENE GLYCOL 3350 17 GM POWD.PACK PO SCH (10:00)
== END 2018-07-27 18:54 | disposition home or self-care (01) ==
LOC: EC 23:52 → 1SOBS 07-27 00:55
PROVIDERS: ADMIT Internal Medicine; ATTEND Internal Medicine
DX: R07.89 Other chest pain (principal); I10 Essential (primary) hypertension; R32 Unspecified urinary incontinence; E11.42 Type 2 diabetes mellitus with diabetic polyneuropathy; F32.9 Major depressive disorder, single episode, unspecified; I35.0 Nonrheumatic aortic (valve) stenosis; J30.2 Other seasonal allergic rhinitis; J44.9 Chronic obstructive pulmonary disease, unspecified; E03.9 Hypothyroidism, unspecified; K59.00 Constipation, unspecified; Z95.0 Presence of cardiac pacemaker; Z87.891 Personal history of nicotine dependence; Z87.09 Personal history of other diseases of the respiratory system; Z79.899 Other long term (current) drug therapy; Z79.84 Long term (current) use of oral hypoglycemic drugs; Z79.01 Long term (current) use of anticoagulants; Z79.890 Hormone replacement therapy; Z88.2 Allergy status to sulfonamides; Z90.49 Acquired absence of other specified parts of digestive tract; Z82.49 Family history of ischemic heart disease and other diseases of the circulatory system
CPT/HCPCS: 99285; 36415; 93005; 93306; 83880; 80053; 83735; 84484; 85025; 85610; 85730; 71046; G0378

== ENCOUNTER 2018-12-03 11:41 | Emergency (ER) | payer MEDICARE, OTHER ==
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
--- NOTE | 2018-12-03 13:14 | CT ---
EXAMINATION TYPE: CT brain cspine wo con DATE OF EXAM: 12/03/2018 COMPARISON: Prior exam 09/29/2017 HISTORY: Trauma and pain CT DLP: 1441.5 mGycm Automated exposure control for dose reduction was used. TECHNIQUE: CT scan of the head and cervical spine are performed without contrast. FINDINGS: There is no acute intracranial hemorrhage, mass effect, or midline shift identified. The ventricles and sulci are within normal limits in size. The globes are intact and the visualized sin uses are clear. White matter low-attenuation is again noted and shows a similar appearance. There are cerebral vascular calcifications. Cervical spine is visualized in its entirety from C1 through upper thoracic levels and demonstrates s atisfactory alignment without evidence of acute fracture or dislocation. Prevertebral soft tissue ap pears within normal limits. The C1-C2 articulation is unremarkable. Lead is coursing along the dist ribution of the innominate vein on the left. Interstitial changes are present at the lung apices. The re is multilevel facet arthropathy. Multilevel degenerative disc changes are again seen. IMPRESSION: 1. There is no acute fracture or dislocation evident in the cervical spine. 2. No acute intracranial hemorrhage, mass effect, or midline shift is seen.
--- NOTE | 2018-12-03 14:02 | XR ---
EXAMINATION TYPE: XR thoracic spine 3 views 3 views lumbar spine DATE OF EXAM: 12/03/2018 COMPARISON: NONE HISTORY: 83-year-old female back pain after fall FINDINGS: Thoracic spine: Left anterior chest wall pacemaker generator with right ventricular lead. There is dextroconvex curva ture of the midthoracic spine with diffuse osteopenia. 12 rib-bearing thoracic vertebral bodies. All pedicles are visualized. Moderate endplate spondylosis seen throughout with overall preserved vertebr al body heights though some limitation in assessment of the upper most thoracic vertebral bodies due to overlying patient's shoulders. There is grade 1 anterolisthesis at C3-C4 on the swimmer's view. Lumbar spine: 5 lumbar type vertebral bodies. Hypertrophic facet arthropathy throughout with grade 1, nearly grade 2 anterolisthesis at L4-L5. Extra convex curvature limits evaluation of vertebral body height on the lateral view. No obvious vertebral compression collapse. Moderate spondylotic change throughout. IMPRESSION: 1. Thoracic spine: Osteopenia and dextroconvex curvature mid thoracic spine. Some limitation in asses sment of the upper vertebral bodies due to overlying patient's shoulders. Moderate spondylotic change without evident compression collapse or malalignment. 2. Incidental: grade 1 anterolisthesis at C3-C4 on the swimmer's view. 3. Lumbar spine: Dextro convex curvature with advanced hypertrophic facet arthropathy and moderate en dplate spondylosis. There is grade 1, nearly grade 2 anterolisthesis at L4-L5. Allowing for the curva ture, no definite vertebral compression collapse.
[2018-12-03 14:07] VITALS: RESP 18; TEMP 98.9
[2018-12-03 14:43] VITALS: BP 139/76; PULSE 64
== END 2018-12-03 15:51 | disposition home or self-care (01) ==
LOC: EC 11:41
DX: S20.229A Contusion of unspecified back wall of thorax, initial encounter (principal); I10 Essential (primary) hypertension; E07.9 Disorder of thyroid, unspecified; R32 Unspecified urinary incontinence; E11.40 Type 2 diabetes mellitus with diabetic neuropathy, unspecified; Z79.84 Long term (current) use of oral hypoglycemic drugs; Z79.890 Hormone replacement therapy; Z79.899 Other long term (current) drug therapy; Z87.891 Personal history of nicotine dependence; Z88.2 Allergy status to sulfonamides; Z87.19 Personal history of other diseases of the digestive system; W18.39XA Other fall on same level, initial encounter; Y93.89 Activity, other specified; Y92.009 Unspecified place in unspecified non-institutional (private) residence as the place of occurrence of the external cause
CPT/HCPCS: 70450; 72070; 72100; 72125; 99284

== ENCOUNTER 2019-11-14 12:24 | Observation (INO) | payer MEDICARE, OTHER ==
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
[2019-11-14 13:15] LABS: Basophils # (A) 0.1 k/uL (0-0.2); Basophils % (A) 1 %; Eosinophils # (A) 0.4 k/uL (0-0.7); Eosinophils % (A) 4 %; HCT 33.4 % (34.0-46.0); HGB 10.4 gm/dL (11.4-16.0); Lymphocytes # (A) 1.6 k/uL (1.0-4.8); Lymphocytes % (A) 18 %; MCH 28.8 pg (25.0-35.0); MCHC 31.2 g/dL (31.0-37.0); MCV 92.2 fL (80.0-100.0); Mean Platelet Volume 8.8; Monocytes # (A) 0.5 k/uL (0-1.0); Monocytes % (A) 5 %; Neutrophils # (A) 6.1 k/uL (1.3-7.7); Neutrophils % (A) 69 %; Platelet Count 298 k/uL (150-450); RBC 3.62 m/uL (3.80-5.40); RDW 13.5 % (11.5-15.5); WBC 8.9 k/uL (3.8-10.6)
[2019-11-14 13:25] LABS: Albumin 3.5 g/dL (3.5-5.0); Potassium 3.8 mmol/L (3.5-5.1); Total Bilirubin 0.4 mg/dL (0.2-1.3); Total Protein 6.9 g/dL (6.3-8.2)
[2019-11-14 13:30] LABS: Partial Thromboplastin Time 26.3 sec (22.0-30.0); Prothrombin Time 10.8 sec (9.0-12.0)
[2019-11-14 14:08] LABS: Appearance,Urine Turbid (Clear); Bacteria,Urine Occasional /hpf; Bilirubin,Urine Negative (Negative); Blood,Urine Large (Negative); Color,Urine Light Red; Glucose,Urine (UA) Negative (Negative); Ketones,Urine Negative (Negative); Leukocyte Esterase,Urine Large (Negative); Mucus,Urine Rare /hpf; Nitrite,Urine Negative (Negative); PH, Urine 5.5 (5.0-8.0); Protein,Urine 1+ (Negative); RBC,Urine >182 /hpf (0-5); Specific Gravity,Urine 1.016 (1.001-1.035); Squamous Epithelial Cell,Urine 1 /hpf (0-4); Urobilinogen,Urine <2.0 mg/dL (<2.0); WBC,Urine >182 /hpf (0-5)
--- NOTE | 2019-11-14 14:13 | XR ---
EXAMINATION TYPE: XR forearm LT DATE OF EXAM: 11/14/2019 CLINICAL HISTORY: pain TECHNIQUE: Frontal and lateral images of the left forearm are obtained. COMPARISON: None. FINDINGS: There is no acute fracture/dislocation evident. The joint spaces appear within normal limi ts. The overlying soft tissue appears unremarkable. IMPRESSION: There is no acute fracture or dislocation. ICD 10 NO FRACTURE, INITIAL EVALUATION
--- NOTE | 2019-11-14 14:18 | CT ---
EXAMINATION TYPE: CT brain les chang con DATE OF EXAM: 11/14/2019 COMPARISON: 12/03/2018 HISTORY: fall today with injury CT DLP: 1349.6 mGycm, Automated exposure control for dose reduction was used. CONTRAST: Patient injected with 0 mL of Isovue 300. CT of the brain is performed utilizing 3 mm thick sections through the posterior fossa and 3 mm thick sections through the remaining calvarium. Study is performed within 24 hours of arrival to the hospital. No abnormal hyperdensity is present to suggest an acute intracranial hemorrhage. No mass lesion is evident. No acute infarcts are evident. Patchy Periventricular white matter hypodensity is present compatible with microvascular ischemic changes. This appears to be changing from 2019. Ventricles and sulci are prominent for the patient age. Paranasal sinuses and mastoid air cells within the [id number] are clear. IMPRESSIONS: 1. Patchy periventricular white matter ischemic type changes. Progressive from 2019. CT cervical spine. COMPARISON: 12/03/2018 CT of the cervical spine is performed in the axial plane at 2 mm thick sections. Reconstructed image s in the coronal, and sagittal plane are reviewed on the computer. No acute fractures are evident. Vertebral body alignment is normal. There is loss of disc height C5-6 C6-7. Minimal anterior vertebral body spurring is present at these levels. Vertebral body heights are preserved. No spinal canal stenosis is evident. Facet degenerative changes are present. No significant interval changes are evident. IMPRESSIONS: 1. Normal CT cervical spine.
--- NOTE | 2019-11-14 14:25 | CT ---
EXAMINATION TYPE: CT abdomen pelvis w con DATE OF EXAM: 11/14/2019 COMPARISON: 03/29/2018 INDICATION: Mid Abdominal pain. DLP: 1135.3 mGycm, Automated exposure control for dose reduction was used. CONTRAST: 80 mL of Isovue 300. Study performed without Oral Contrast TECHNIQUE: Axial images were obtained from above the diaphragm to the pubic rami in the axial plane a t 5 mm thick sections. Reconstructed images are reviewed on the computer in the coronal plane. FINDINGS: Limited CT sections are obtained the lung bases. There is consolidation in the posterior right lung base. Minimal left pleural effusion is present. Coronary artery calcification is present.. CT ABDOMEN: Liver: Biliary dilatation is evident with marked prominence of the common bile duct. Hepatic masses o r cysts are not identified. Spleen: Normal Pancreas: There are scattered hypodensities within the atrophic pancreas. Adrenal glands: There is a 0.8 cm hypodensity on the left adrenal gland. The right adrenal gland appe ars unremarkable. Gallbladder: Normal Kidneys: No masses are evident. No hydronephrosis is present. Multiple small cortical renal cysts a re present bilaterally. Delayed images were obtained through the kidneys, which remain unremarkable. Aorta: Vascular calcification is within the aorta. Inferior vena cava: Normal. CT PELVIS: Loops of bowel within the abdomen and pelvis are normal. The study is performed without contrast limiting bowel evaluation. Appendix: Not identified Urinary bladder: There appears to be some inflammatory changes external to the urinary bladder wall. Correlate for cystitis. Urinary bladder appears incompletely distended. Genitourinary structures: Uterus contains calcifications which could be related to fibroids.. Adnexal regions are clear. Osseous structures: No suspicious lytic or sclerotic lesions. Sacroiliac joint and facet changes are present. IMPRESSIONS: 1. Consolidation within the right lower lobe. Correlate for pneumonia. 2. Small pleural effusions. 3. Biliary dilatation common bile duct dilatation present previously. 4 multiple hypodensities within the atrophic kidney, stable. 4. Bilateral renal cysts. 5. Inflammatory changes adjacent to the urinary bladder wall diffusely. Correlate for cystitis.
[2019-11-14] MEDS ORDERED: cefTRIAXone IN SWFI 1,000 MG/10 ML SYRINGE IVP STA (14:31)
[2019-11-14] MEDS ORDERED: IBUPROFEN 400 MG TAB PO PRN (14:47)
[2019-11-14] MEDS ORDERED: NALOXONE 0.4 MG/ML 1 ML VIAL IV PRN (14:47)
[2019-11-14] MEDS ORDERED: ACETAMINOPHEN TAB 325 MG TAB PO PRN (14:47)
[2019-11-14] MEDS: SODIUM CHLORIDE 0.9% 1,000 ML IV SCH (15:29)
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
[2019-11-14] MEDS: OMEGA ACID ETHYL ESTERS PO SCH (21:35)
[2019-11-14] MEDS: METOPROLOL TARTRATE 25 MG TAB PO SCH (21:38)
[2019-11-14] MEDS: APIXABAN 2.5 MG TABLET PO SCH (21:38)
[2019-11-15] MEDS: LEVOTHYROXINE 50 MCG TAB PO SCH (05:45)
[2019-11-15] MEDS: SODIUM CHLORIDE 0.9% 1,000 ML IV SCH ×2 (05:49→09:05)
[2019-11-15 07:50] LABS: Basophils # (A) 0.1 k/uL (0-0.2); Basophils % (A) 1 %; Eosinophils # (A) 0.5 k/uL (0-0.7); Eosinophils % (A) 7 %; HCT 31.6 % (34.0-46.0); HGB 9.9 gm/dL (11.4-16.0); Hypochromasia Slight; Lymphocytes # (A) 1.7 k/uL (1.0-4.8); Lymphocytes % (A) 23 %; MCH 29.2 pg (25.0-35.0); MCHC 31.4 g/dL (31.0-37.0); MCV 92.9 fL (80.0-100.0); Mean Platelet Volume 7.9; Monocytes # (A) 0.4 k/uL (0-1.0); Monocytes % (A) 6 %; Neutrophils # (A) 4.7 k/uL (1.3-7.7); Neutrophils % (A) 62 %; Platelet Count 303 k/uL (150-450); RDW 13.5 % (11.5-15.5); WBC 7.5 k/uL (3.8-10.6)
[2019-11-15 08:13] LABS: Calcium 8.4 mg/dL (8.4-10.2); Potassium 3.8 mmol/L (3.5-5.1)
[2019-11-15] MEDS: APIXABAN 2.5 MG TABLET PO SCH ×2 (09:06→20:26)
[2019-11-15] MEDS: amLODIPine 10 MG TAB PO SCH (09:07)
[2019-11-15] MEDS: METOPROLOL TARTRATE 25 MG TAB PO SCH ×2 (09:07→20:26)
[2019-11-15] MEDS: PANTOPRAZOLE 40 MG TABLET PO SCH (09:07)
[2019-11-15] MEDS: OMEGA ACID ETHYL ESTERS PO SCH ×2 (10:24→20:25)
[2019-11-15 12:35] VITALS: BMI 29.2
--- NOTE | 2019-11-15 17:32 | P.PN ---
Progress Note - Text Progress Note Date: 11/15/19 Chief Complaint: Fall History of presenting complaint: This is a pleasant 84-year-old patient of visiting physician Dr. Manzo. Chronic stable medical conditions include atrial fibrillation, CHF, diabetes, GERD, hypertension, hypothyroid, diverticulosis, urinary incontinence peripheral neuropathy. Patient was sleeping and she found herself on the floor. Patient has been incontinence of urine. Some pain to the left shoulder. Denies any chest pain or tongue biting or incontinence. Patient is obviously lower abdominal pain. No nausea vomiting. Has had decrease appetite. Presented to the ER. Found to have a significant UTI. Started on IV ceftriaxone and fluids. Today-feeling better. Less diet. Eating well. Review of systems: Was done for constitutional, cardiovascular, GI, pulmonary. relevant finding as above Active Medications Acetaminophen (Tylenol Tab) 650 mg PO Q6HR PRN PRN Reason: Mild Pain or Fever > 100.5 Amlodipine Besylate (Norvasc) 10 mg PO DAILY [facility] Last Admin: 11/15/19 09:07 Dose: 10 mg Documented by: Apixaban (Eliquis) 2.5 mg PO BID [facility] Last Admin: 11/15/19 09:06 Dose: 2.5 mg Documented by: Sodium Chloride (Saline 0.9%) 1,000 mls @ 75 mls/hr IV .[id number] [facility] Last Admin: 11/15/19 09:05 Dose: 75 mls/hr Documented by: Ceftriaxone Sodium 1 gm/ (Sodium Chloride) 50 mls @ 100 mls/hr IVPB Q24HR [facility] Last Admin: 11/15/19 09:06 Dose: 100 mls/hr Documented by: Ibuprofen (Motrin) 400 mg PO Q6HR PRN PRN Reason: Mild Pain or Fever > 100.5 Levothyroxine Sodium (Synthroid) 50 mcg PO 0630 [facility] Last Admin: 11/15/19 05:45 Dose: 50 mcg Documented by: Metoprolol Tartrate (Lopressor) 25 mg PO BID [facility] Last Admin: 11/15/19 09:07 Dose: 25 mg Documented by: Naloxone HCl (Narcan) 0.2 mg IV Q2M PRN PRN Reason: Opioid Reversal Patient's Own ([place] -3 Acid Ethyl Esters [Lovaza] 1 Gm) 1 gm PO BID [facility] Last Admin: 11/15/19 10:24 Dose: Not Given Documented by: Pantoprazole Sodium (Protonix) 40 mg PO AC-BRKFST [facility] Last Admin: 11/15/19 09:07 Dose: 40 mg Documented by: Physical examination: VITAL SIGNS: 97.5, 60, 18, 91/61, 95% room air GENERAL: Laying in bed, looking better EYES: Pupils equal. Conjunctiva normal. NECK: JVD not raised; masses not palpable. HEART: First and second heart sounds are normal; no edema. LUNGS: Respiratory rate normal; decreased breath sounds. ABDOMEN: Soft, some suprapubic tenderness, but no guarding rigidity, liver spleen not palpable, no masses palpable. MUSCULAR skeletal: Evidence of OA especially in the hand PSYCH: Alert and oriented x3; mood and affect normal. INVESTIGATIONS, reviewed in the clinical context: White count 7.5 hemoglobin 9.9 potassium 3.8 creatinine 0.84 Previous testing White count 8.9 hemoglobin 10.4 platelets 298 potassium 3.8 bun 27 creatinine 1.06 UA positive for new questions, WBC, bacteria EKG tracing personally reviewed by me-atrial fibrillation nonspecific T-wave changes -Computed tomography scan of the abdomen and pelvis-consolidation with right lower lobe, bilateral kidney cyst intermittently changes edges into the urinary bladder wall diffusely Left Forearm x-ray-no fracture Head spine computed tomography scan negative Assessment: -Acute severe UTI with cystitis, POA, culture pending -Dehydration -Persistent atrial fibrillation, rate controlled -Chronic congestive heart failure EF not known -GERD, -Essential hypertension -Hypothyroid -Chronic diverticulosis and -Chronic urinary incontinence patient does be disposables -peripheral neuropathy Plan: Patient encouraged to be out of bed. Continue with IV fluids. Hopefully discharge in 24 hours.
[2019-11-16] MEDS: LEVOTHYROXINE 50 MCG TAB PO SCH (05:31)
[2019-11-16 07:15] LABS: Glucose,Whole Blood 101 mg/dL (75-99)
[2019-11-16] MEDS: APIXABAN 2.5 MG TABLET PO SCH ×2 (07:35→22:00)
[2019-11-16] MEDS: METOPROLOL TARTRATE 25 MG TAB PO SCH ×2 (07:35→22:00)
[2019-11-16] MEDS: amLODIPine 10 MG TAB PO SCH (07:35)
[2019-11-16] MEDS: PANTOPRAZOLE 40 MG TABLET PO SCH (07:35)
[2019-11-16] MEDS: OMEGA ACID ETHYL ESTERS PO SCH ×2 (07:48→21:59)
[2019-11-16 11:26] LABS: Glucose,Whole Blood 116 mg/dL (75-99)
[2019-11-16 16:49] LABS: Glucose,Whole Blood 115 mg/dL (75-99)
--- NOTE | 2019-11-16 17:41 | P.PN ---
Progress Note - Text Progress Note Date: 11/16/19 Chief Complaint: Fall History of presenting complaint: This is a pleasant 84-year-old patient of visiting physician Dr. Manzo. Chronic stable medical conditions include atrial fibrillation, CHF, diabetes, GERD, hypertension, hypothyroid, diverticulosis, urinary incontinence peripheral neuropathy. Patient was sleeping and she found herself on the floor. Patient has been incontinence of urine. Some pain to the left shoulder. Denies any chest pain or tongue biting or incontinence. Patient is obviously lower abdominal pain. No nausea vomiting. Has had decrease appetite. Presented to the ER. Found to have a significant UTI. Started on IV ceftriaxone and fluids. Today-continues to improve. Oral intake improved. Intermittent pain in his left shoulder. Patient's son visited the floor. His very concerned about his mother hoarding stuff in her apartment. He brought some pictures. She is going to look into getting this stuff before the patient was comes home. Review of systems: Was done for constitutional, cardiovascular, GI, pulmonary. relevant finding as above Active Medications Acetaminophen (Tylenol Tab) 650 mg PO Q6HR PRN PRN Reason: Mild Pain or Fever > 100.5 Amlodipine Besylate (Norvasc) 10 mg PO DAILY [facility] Last Admin: 11/16/19 07:35 Dose: 10 mg Documented by: Apixaban (Eliquis) 2.5 mg PO BID [facility] Last Admin: 11/16/19 07:35 Dose: 2.5 mg Documented by: Sodium Chloride (Saline 0.9%) 1,000 mls @ 75 mls/hr IV .[id number] [facility] Last Admin: 11/15/19 09:05 Dose: 75 mls/hr Documented by: Ceftriaxone Sodium 1 gm/ (Sodium Chloride) 50 mls @ 100 mls/hr IVPB Q24HR [facility] Last Admin: 11/16/19 07:36 Dose: 100 mls/hr Documented by: Ibuprofen (Motrin) 400 mg PO Q6HR PRN PRN Reason: Mild Pain or Fever > 100.5 Last Admin: 11/16/19 08:08 Dose: 400 mg Documented by: Levothyroxine Sodium (Synthroid) 50 mcg PO 0630 [facility] Last Admin: 11/16/19 05:31 Dose: 50 mcg Documented by: Metoprolol Tartrate (Lopressor) 25 mg PO BID [facility] Last Admin: 11/16/19 07:35 Dose: 25 mg Documented by: Naloxone HCl (Narcan) 0.2 mg IV Q2M PRN PRN Reason: Opioid Reversal Patient's Own ([place] -3 Acid Ethyl Esters [Lovaza] 1 Gm) 1 gm PO BID [facility] Last Admin: 11/16/19 07:48 Dose: Not Given Documented by: Pantoprazole Sodium (Protonix) 40 mg PO AC-BRKFST [facility] Last Admin: 11/16/19 07:35 Dose: 40 mg Documented by: Physical examination: VITAL SIGNS: 97.8, 60, 17, 113/64, 92% room air GENERAL: Laying in bed, looking better EYES: Pupils equal. Conjunctiva normal. NECK: JVD not raised; masses not palpable. HEART: First and second heart sounds are normal; no edema. LUNGS: Respiratory rate normal; decreased breath sounds. ABDOMEN: Soft, some suprapubic tenderness, but no guarding rigidity, liver spleen not palpable, no masses palpable. MUSCULAR skeletal: Evidence of OA especially in the hand PSYCH: Alert and oriented x3; mood and affect normal. INVESTIGATIONS, reviewed in the clinical context: White count 7.5 hemoglobin 9.9 potassium 3.8 creatinine 0.84 Previous testing White count 8.9 hemoglobin 10.4 platelets 298 potassium 3.8 bun 27 creatinine 1.06 UA positive for new questions, WBC, bacteria EKG tracing personally reviewed by me-atrial fibrillation nonspecific T-wave changes -Computed tomography scan of the abdomen and pelvis-consolidation with right lower lobe, bilateral kidney cyst intermittently changes edges into the urinary bladder wall diffusely Left Forearm x-ray-no fracture Head spine computed tomography scan negative Assessment: -Acute severe UTI with cystitis, POA, culture pending -Dehydration, POA -Persistent atrial fibrillation, rate controlled -Chronic congestive heart failure EF not known -GERD, -Essential hypertension -Hypothyroid -Chronic diverticulosis and -Chronic urinary incontinence patient does be disposables -peripheral neuropathy Plan: Discussed with the patient. Also discussed patient's son. He needs another de facto rearranged apartment. Discharged tomorrow. Change antibiotics to Keflex.
[2019-11-16] MEDS: SODIUM CHLORIDE 0.9% 1,000 ML IV SCH (18:25)
[2019-11-16 19:27] VITALS: RESP 18
[2019-11-16 20:19] LABS: Glucose,Whole Blood 141 mg/dL (75-99)
[2019-11-16] MEDS: CEPHALEXIN 250 MG CAP PO SCH (22:00)
[2019-11-17] MEDS: LEVOTHYROXINE 50 MCG TAB PO SCH (05:39)
[2019-11-17 07:25] LABS: Glucose,Whole Blood 111 mg/dL (75-99)
[2019-11-17 08:55] VITALS: BP 130/74; PULSE 65; TEMP 97.9
[2019-11-17] MEDS: PANTOPRAZOLE 40 MG TABLET PO SCH (09:04)
[2019-11-17] MEDS: CEPHALEXIN 250 MG CAP PO SCH ×2 (09:04→15:19)
[2019-11-17] MEDS: amLODIPine 10 MG TAB PO SCH (09:04)
[2019-11-17] MEDS: METOPROLOL TARTRATE 25 MG TAB PO SCH (09:04)
[2019-11-17] MEDS: APIXABAN 2.5 MG TABLET PO SCH (09:04)
[2019-11-17] MEDS: OMEGA ACID ETHYL ESTERS PO SCH (09:05)
[2019-11-17 11:39] LABS: Glucose,Whole Blood 102 mg/dL (75-99)
[2019-11-17 16:45] LABS: Glucose,Whole Blood 106 mg/dL (75-99)
--- NOTE | 2019-11-17 22:01 | P.DS ---
Providers Date of admission: 11/14/19 14:47 Expected date of discharge: 11/17/19 Attending physician: Isidro Ceballos Primary care physician: Bharath Manzo [facility] Course: Chief Complaint: Fall History of presenting complaint: This is a pleasant 84-year-old patient of visiting physician Dr. Manzo. Chronic stable medical conditions include atrial fibrillation, CHF, diabetes, GERD, hypertension, hypothyroid, diverticulosis, urinary incontinence peripheral neuropathy. Patient was sleeping and she found herself on the floor. Patient has been incontinence of urine. Some pain to the left shoulder. Denies any chest pain or tongue biting or incontinence. Patient is obviously lower abdominal pain. No nausea vomiting. Has had decrease appetite. Presented to the ER. Found to have a significant UTI. Started on IV ceftriaxone and fluids. Today-doing well. Using a walker. Appetite good. Back to baseline. Discussed with the patient. Physical examination: VITAL SIGNS: 97.9, 75, 18, 130/74, 94% room air GENERAL: Comfortable EYES: Pupils equal. Conjunctiva normal. NECK: JVD not raised; masses not palpable. HEART: First and second heart sounds are normal; no edema. LUNGS: Respiratory rate normal; decreased breath sounds. ABDOMEN: Soft, no tenderness, liver spleen not palpable, no masses palpable. MUSCULAR skeletal: Evidence of OA especially in the hand PSYCH: Alert and oriented x3; mood and affect normal. INVESTIGATIONS, reviewed in the clinical context: White count 7.5 hemoglobin 9.9 potassium 3.8 creatinine 0.84 Previous testing White count 8.9 hemoglobin 10.4 platelets 298 potassium 3.8 bun 27 creatinine 1.06 UA positive for new questions, WBC, bacteria EKG tracing personally reviewed by me-atrial fibrillation nonspecific T-wave changes -Computed tomography scan of the abdomen and pelvis-consolidation with right lower lobe, bilateral kidney cyst intermittently changes edges into the urinary bladder wall diffusely Left Forearm x-ray-no fracture Head spine computed tomography scan negative Assessment: -Acute severe UTI with cystitis, POA, for from E. coli -Dehydration, POA -Persistent atrial fibrillation, rate controlled -Chronic congestive heart failure EF not known -GERD, -Essential hypertension -Hypothyroid -Chronic diverticulosis and -Chronic urinary incontinence patient does be disposables -peripheral neuropathy Disposition: [facility] Patient Condition at Discharge: Stable Plan - Discharge Summary Discharge Rx Participant: No New Discharge Prescriptions: New Cephalexin [Keflex] 250 mg PO TID #6 cap Continue Omeprazole [PriLOSEC] 40 mg PO DAILY amLODIPine [Norvasc] 10 mg PO DAILY tab Metoprolol Tartrate [Lopressor] 25 mg PO BID tab MDD HOLD IF SBP LESS THAN 55 [place]-3 Acid Ethyl Esters [Lovaza] 1 gm PO BID Levothyroxine Sodium [Synthroid] 50 mcg PO DAILY Apixaban [Eliquis] 2.5 mg PO BID V-C Forte 1 cap PO DAILY Discontinued Furosemide [Lasix] 20 mg PO DAILY MDD HOLD IF SBP LESS THAN 110 Discharge Medication List Omeprazole [PriLOSEC] 40 mg PO DAILY 09/30/17 [History] Metoprolol Tartrate [Lopressor] 25 mg PO BID tab MDD HOLD IF SBP LESS THAN 55 10/15/17 [Rx] amLODIPine [Norvasc] 10 mg PO DAILY tab 10/15/17 [Rx] [place]-3 Acid Ethyl Esters [Lovaza] 1 gm PO BID 03/29/18 [History] Levothyroxine Sodium [Synthroid] 50 mcg PO DAILY 07/27/18 [History] Apixaban [Eliquis] 2.5 mg PO BID 11/14/19 [History] V-C Forte 1 cap PO DAILY 11/14/19 [History] Cephalexin [Keflex] 250 mg PO TID #6 cap 11/17/19 [Rx] Follow up Appointment(s)/Referral(s): Bharath Manzo MD [Primary Care Provider] - 1-2 days (office closed at time of discharge. Please call to make to make appointment) Patient Instructions/Handouts: Urinary Tract Infection in Women ([place]) Activity/Diet/Wound Care/Special Instructions: Activity as tolerated. Diet as tolerated. Stay hydrated. Discharge Disposition: HOME SELF-CARE
== END 2019-11-17 18:05 | disposition home or self-care (01) ==
LOC: EC 12:24 → 4SSUR 14:47
PROVIDERS: ADMIT Hospitalist; ATTEND Hospitalist
DX: N30.90 Cystitis, unspecified without hematuria (principal); B96.20 Unspecified Escherichia coli [E. coli] as the cause of diseases classified elsewhere; I48.19 Other persistent atrial fibrillation; I50.9 Heart failure, unspecified; K21.9 Gastro-esophageal reflux disease without esophagitis; M25.512 Pain in left shoulder; I13.0 Hypertensive heart and chronic kidney disease with heart failure and stage 1 through stage 4 chronic kidney disease, or unspecified chronic kidney disease; I10 Essential (primary) hypertension; E03.9 Hypothyroidism, unspecified; K57.90 Diverticulosis of intestine, part unspecified, without perforation or abscess without bleeding; E11.42 Type 2 diabetes mellitus with diabetic polyneuropathy; E11.22 Type 2 diabetes mellitus with diabetic chronic kidney disease; Z79.01 Long term (current) use of anticoagulants; Z79.890 Hormone replacement therapy; Z79.899 Other long term (current) drug therapy; Z87.891 Personal history of nicotine dependence; Z95.0 Presence of cardiac pacemaker; N39.45 Continuous leakage; E86.0 Dehydration; J42 Unspecified chronic bronchitis; W19.XXXA Unspecified fall, initial encounter; Z82.49 Family history of ischemic heart disease and other diseases of the circulatory system
CPT/HCPCS: 96361 ×3; 96365; 96376; 99285; 36415; 93005; 80053; 80048; 82550; 83605; 83690; 85025 ×2; 85610; 85730; 81001; 87040; 87086; 87077; 87186; 73090; 72125; 70450; 74177; G0378 ×4; J0696 ×3; Q9967

== ENCOUNTER 2020-02-05 19:32 | Inpatient (IN) | payer MEDICARE, OTHER ==
[2020-02-05] MEDS ORDERED: SODIUM CHLORIDE 0.9% 500 ML 500 ML IV STA ×2 (19:42→20:50)
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
[2020-02-05 20:11] LABS: Basophils # (A) 0.1 k/uL (0-0.2); Basophils % (A) 1 %; Eosinophils # (A) 0.1 k/uL (0-0.7); Eosinophils % (A) 1 %; HGB 12.4 gm/dL (11.4-16.0); Hypochromasia Slight; Lymphocytes # (A) 1.1 k/uL (1.0-4.8); Lymphocytes % (A) 9 %; MCH 30.7 pg (25.0-35.0); MCHC 33.4 g/dL (31.0-37.0); MCV 91.9 fL (80.0-100.0); Mean Platelet Volume 11.1; Monocytes # (A) 0.8 k/uL (0-1.0); Monocytes % (A) 7 %; Neutrophils # (A) 9.3 k/uL (1.3-7.7); Neutrophils % (A) 80 %; Platelet Count 254 k/uL (150-450); RBC 4.02 m/uL (3.80-5.40); RDW 14.1 % (11.5-15.5); WBC 11.7 k/uL (3.8-10.6)
[2020-02-05 20:27] LABS: Albumin 3.8 g/dL (3.5-5.0); Calcium 8.9 mg/dL (8.4-10.2); Magnesium 2.6 mg/dL (1.6-2.3); Potassium 5.9 mmol/L (3.5-5.1); Total Bilirubin 1.4 mg/dL (0.2-1.3); Total Protein 8.4 g/dL (6.3-8.2)
[2020-02-05 20:42] LABS: C Reactive Protein 150.3 mg/L (<10.0)
--- NOTE | 2020-02-05 20:43 | XR ---
EXAMINATION TYPE: XR chest 1V portable DATE OF EXAM: 02/05/2020 COMPARISON: 07/27/2018 HISTORY: Weakness TECHNIQUE: FINDINGS: Heart is enlarged. There is no heart failure. There is slight coarsening of interstitial ma rkings. There is no pleural effusion. There is left axillary pacemaker. The bony thorax is intact. Th ere is significant abnormality in the right shoulder joint with subacromial joint space narrowing. IMPRESSION: No heart failure. Mild pulmonary fibrotic changes. No change compared to old exam.
[2020-02-05 20:46] LABS: INR 1.1 (<1.2); Partial Thromboplastin Time 25.6 sec (22.0-30.0); Prothrombin Time 11.3 sec (9.0-12.0)
[2020-02-05 21:46] LABS: Appearance,Urine Turbid (Clear); Bilirubin,Urine Negative (Negative); Blood,Urine Moderate (Negative); Color,Urine Yellow; Glucose,Urine (UA) Negative (Negative); Ketones,Urine 1+ (Negative); Leukocyte Esterase,Urine Large (Negative); Nitrite,Urine Negative (Negative); Protein,Urine 2+ (Negative); RBC,Urine 35 /hpf (0-5); Urobilinogen,Urine <2.0 mg/dL (<2.0); WBC,Urine >182 /hpf (0-5)
[2020-02-05 22:11] LABS: Specific Gravity,Urine 1.017 (1.001-1.035)
[2020-02-05] MEDS ORDERED: cefTRIAXone IN SWFI 1,000 MG/10 ML SYRINGE IVP STA (22:20)
[2020-02-05] MEDS ORDERED: ACETAMINOPHEN TAB 325 MG TAB PO PRN (22:37)
[2020-02-05] MEDS ORDERED: NALOXONE 0.4 MG/ML 1 ML VIAL IV PRN (22:37)
[2020-02-05] MEDS ORDERED: SODIUM CHLORIDE 0.9% 1,000 ML IV SCH (22:45)
[2020-02-06 02:56] LABS: Calcium 8.6 mg/dL (8.4-10.2); Potassium 4.1 mmol/L (3.5-5.1)
[2020-02-06 05:59] LABS: Glucose,Whole Blood 103 mg/dL (75-99)
[2020-02-06] MEDS ORDERED: amLODIPine 10 MG TAB PO SCH (10:15)
[2020-02-06 12:23] LABS: Glucose,Whole Blood 104 mg/dL (75-99)
[2020-02-06] MEDS: METOPROLOL TARTRATE 25 MG TAB PO SCH ×2 (12:40→20:01)
[2020-02-06] MEDS: LEVOTHYROXINE 50 MCG TAB PO SCH (12:40)
[2020-02-06] MEDS: APIXABAN 2.5 MG TABLET PO SCH ×2 (12:41→20:01)
[2020-02-06] MEDS: PANTOPRAZOLE 40 MG TABLET PO SCH (12:41)
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
[2020-02-06] MEDS: LACTATED RINGERS 1,000 ML IV SCH (16:25)
--- NOTE | 2020-02-06 16:35 | ECHOF ---
Referral Reason:LV function MEASUREMENTS -------- HEIGHT: 165.1 cm WEIGHT: 58.1 kg BP: 125/70 RVIDd: 3.6 cm (< 3.3) IVSd: 1.4 cm (0.6 - 1.1) LVIDd: 4.0 cm (3.9 - 5.3) LVPWd: 1.3 cm (0.6 - 1.1) IVSs: 1.7 cm LVIDs: 2.4 cm LVPWs: 1.8 cm LAESV Index (A-L): 57.54 ml/m Ao Diam: 3.0 cm (2.0 - 3.7) AV Cusp: 1.7 cm (1.5 - 2.6) MV EXCURSION: 17.614 mm (> 18.000) MV EF SLOPE: 115 mm/s (70 - 150) EPSS: 0.5 cm AV maxP.04 mmHg AV meanP.08 mmHg RAP: 5.00 mmHg RVSP: 49.04 mmHg FINDINGS -------- This was a technically adequate study. The left ventricular size is normal. There is moderate concentric left ventricular hypertrophy. O verall left ventricular systolic function is normal with, an EF between 55 - 60 %. Both the mean at rial pressure as well as the LV end diastolic pressure is elevated {E/E'}. The right ventricle is mildly enlarged. LA is severely dilated >40 ml/m2 The right atrium is mildly enlarged. Interatrial and interventricular septum intact. The aortic valve is trileaflet and appears structurally normal. There is no evidence of aortic regu rgitation. There is moderate aortic stenosis present. Peak/mean gradient across the Aortic Valve is 29.04mmHg / 16.08mmHg. Moderate mitral annular calcification present. Eipx-[id number]-yylgbyyp mitral regurgitation is present. Moderate tricuspid regurgitation present. There is moderate pulmonary hypertension. The right jorge alberto tricular systolic pressure, as measured by Doppler, is 49.04mmHg. There is no pulmonic regurgitation present. The aortic root size is normal. The inferior vena cava is mildly dilated. There is no pericardial effusion. CONCLUSIONS -------- 1. The left ventricular size is normal. 2. There is moderate concentric left ventricular hypertrophy. 3. Overall left ventricular systolic function is normal with, an EF between 55 - 60 %. 4. Both the mean atrial pressure as well as the LV end diastolic pressure is elevated {E/E'}. 5. The right ventricle is mildly enlarged. 6. LA is severely dilated >40 ml/m2 7. The right atrium is mildly enlarged. 8. There is moderate aortic stenosis present. 9. Peak/mean gradient across the Aortic Valve is 29.04mmHg / 16.08mmHg. 10. Moderate mitral annular calcification present. 11. Nwok-ag-gcikepcn mitral regurgitation is present. 12. Moderate tricuspid regurgitation present. 13. There is moderate pulmonary hypertension. 14. The right ventricular systolic pressure, as measured by Doppler, is 49.04mmHg. 15. There is no pulmonic regurgitation present. 16. The aortic root size is normal. 17. The inferior vena cava is mildly dilated. 18. There is no pericardial effusion. DEICER FINISHER: Cintia Sloan RDCS
[2020-02-06 17:09] LABS: Glucose,Whole Blood 156 mg/dL (75-99)
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
[2020-02-06 21:11] LABS: Glucose,Whole Blood 131 mg/dL (75-99)
[2020-02-07] MEDS: LACTATED RINGERS 1,000 ML IV SCH ×3 (05:25→15:45)
[2020-02-07 06:20] LABS: Glucose,Whole Blood 95 mg/dL (75-99)
[2020-02-07] MEDS: PANTOPRAZOLE 40 MG TABLET PO SCH (06:39)
[2020-02-07] MEDS: LEVOTHYROXINE 50 MCG TAB PO SCH (06:39)
[2020-02-07 08:15] LABS: Calcium 8.1 mg/dL (8.4-10.2); Potassium 3.7 mmol/L (3.5-5.1)
[2020-02-07] MEDS ORDERED: amLODIPine 5 MG TAB PO SCH (09:00)
[2020-02-07] MEDS: APIXABAN 2.5 MG TABLET PO SCH ×2 (09:30→20:27)
[2020-02-07] MEDS: METOPROLOL TARTRATE 25 MG TAB PO SCH ×2 (09:30→20:27)
[2020-02-07 12:24] LABS: Glucose,Whole Blood 139 mg/dL (75-99)
--- NOTE | 2020-02-07 13:04 | P.PN ---
Subjective HISTORY OF PRESENT ILLNESS: This is a 84 -year old female with a past medical history significant for paroxysmal atrial fibrillation, diabetes mellitus, hypertension, hypothyroidism, and prior pacemaker insertion. Patient follows in the office with Dr. Avina. The patient is seen and examined resting comfortably lying flat in bed in no acute distress. She denies symptoms of chest pain, shortness of breath, dizziness or palpitations. Blood pressure 91/53 heart rate 63 afebrile maintaining oxygen saturation on room air. Laboratory data reviewed, sodium 135, potassium 3.7 and creatinine 1.03. Troponin trend - 0.165, 0.129, 0.109. Echocardiogram obtained revealed preserved LV systolic function with ejection fraction 55-60%, mild aortic stenosis with a mean gradient of 16 mmHg, mild to moderate mitral regurgitation, mild tricuspid regurgitation and moderate pulmonary hypertension with an RVSP of 49 mmHg. Currently maintained on amlodipine 5 mg daily, Eliquis 2.5 mg twice a day and Lopressor 25 mg twice a day. PHYSICAL EXAM: GENERAL: Well-developed in no acute distress. HEENT: Head is normocephalic. Pupils are equal, round. Sclerae anicteric. Mucous membranes of the mouth are moist. Neck supple. No JVD or thyromegaly LUNGS: Respirations even and unlabored. Lungs essentially clear to auscultation bilaterally. HEART: Irregular rate and rhythm. S1 and S2 heard. Systolic murmur. EXTREMITIES: Normal range of motion. No clubbing or cyanosis. Peripheral pulses intact. No lower extremity edema ASSESSMENT: Generalized weakness Acute urinary tract infection with leukocytosis Paroxysmal atrial fibrillation, on long-term anticoagulation with Eliquis Elevated troponin, no signs of acute coronary syndrome, may be secondary to infectious process or acute kidney injury Aortic stenosis Acute kidney injury, improved. History of present pacemaker insertion, 2018, secondary to sick sinus syndrome Hypertension Hyperlipidemia Diabetes mellitus, type II PLAN: Continue current medical regimen and treatment of UTI. We will follow along and make recommendations accordingly. Nurse practitioner note has been reviewed by physician. Signing provider agrees with the documented findings, assessment, and plan of care. Objective - Vital Signs Vital signs: Vital Signs Temp 97.9 F 02/07/20 09:28 Pulse 63 02/07/20 11:30 Resp 16 02/07/20 11:30 BP 91/53 02/07/20 11:30 Pulse Ox 92 L 02/07/20 11:30 Intake & Output 02/06/20 02/07/20 02/07/20 18:59 06:59 18:59 Intake Total 1020 2480 90 Balance 1020 2480 90 Weight 56 kg Intake: Intake, IV Titration 480 1100 Amount Lactated Ringers 1,000 ml 1000 @ 100 mls/hr IV .Q10H [facility] Rx#:[id number] Sodium Chloride 0.9% 1, 480 000 ml @ 60 mls/hr IV . [id number] [facility] Rx#:[id number] cefTRIAXone 1 gm In 100 Sodium Chloride 0.9% 50 ml @ 100 mls/hr IVPB Q12HR [facility] Rx#:[id number] Oral 540 1380 90 Other: Voiding Method Diaper Diaper Diaper Incontinent Incontinent Incontinent # Voids 1 1 1 # Bowel Movements 0 - Labs CBC & Chem 7: 02/05/20 19:58 02/07/20 06:56 Labs: Abnormal Lab Results - Last 24 Hours (Table) 02/06/20 02/06/20 02/06/20 Range/Units 14:55 17:07 21:07 Sodium (137-145) mmol/L BUN (7-17) mg/dL POC Glucose (mg/dL) 156 H 131 H (75-99) mg/dL Calcium (8.4-10.2) mg/dL Troponin I 0.109 H* (0.000-0.034) ng/mL 02/07/20 02/07/20 Range/Units 06:56 12:02 Sodium 135 L (137-145) mmol/L BUN 30 H (7-17) mg/dL POC Glucose (mg/dL) 139 H (75-99) mg/dL Calcium 8.1 L (8.4-10.2) mg/dL Troponin I (0.000-0.034) ng/mL Microbiology - Last 24 Hours (Table) 02/05/20 19:58 Urine Culture - Preliminary Urine,Clean Catch Gram Neg Bacilli
[2020-02-07 16:44] LABS: Glucose,Whole Blood 134 mg/dL (75-99)
--- NOTE | 2020-02-07 20:43 | P.PN ---
Progress Note - Text Progress Note Date: 02/07/20 Chief Complaint: weak History of presenting complaint: This is a pleasant 84-year-old patient of visiting physician Dr. Manzo. Chronic stable medical conditions include atrial fibrillation, CHF, diabetes, GERD, hypertension, hypothyroid, diverticulosis, urinary incontinence peripheral neuropathy. Patient is pending. Appetite is a diet. Patient went down to sit on the toilet and rundown. Was unable to get up. No fever no chills. No respiratory or urinary symptoms. Feeling weak in the muscles. Admitted with acute kidney injury, dehydration, acute UTI. Started on IV ceftriaxone, IV fluids. Today-rather tired. Decreased oral intake only eating about 25%. Hasn't been out of bed. Review of systems: Was done for constitutional, cardiovascular, GI, pulmonary. relevant finding as above Active Medications Acetaminophen (Acetaminophen Tab 325 Mg Tab) 650 mg PO Q6HR PRN PRN Reason: Mild Pain or Fever > 100.5 Amlodipine Besylate (Amlodipine 5 Mg Tab) 5 mg PO DAILY COUNT INCLUDES THE [facility] Last Admin: 02/07/20 09:30 Dose: 5 mg Documented by: Apixaban (Apixaban 2.5 Mg Tablet) 2.5 mg PO BID COUNT INCLUDES THE [facility] Last Admin: 02/07/20 20:27 Dose: 2.5 mg Documented by: Ceftriaxone Sodium 1 gm/ (Sodium Chloride) 50 mls @ 100 mls/hr IVPB Q12HR COUNT INCLUDES THE [facility] Last Admin: 02/07/20 20:27 Dose: 100 mls/hr Documented by: Lactated Ringer's (Lactated Ringers) 1,000 mls @ 50 mls/hr IV .Q20H COUNT INCLUDES THE [facility] Last Admin: 02/07/20 15:45 Dose: Not Given Documented by: Levothyroxine Sodium (Levothyroxine 50 Mcg Tab) 50 mcg PO 0630 COUNT INCLUDES THE [facility] Last Admin: 02/07/20 06:39 Dose: 50 mcg Documented by: Metoprolol Tartrate (Metoprolol Tartrate 25 Mg Tab) 25 mg PO BID COUNT INCLUDES THE [facility] Last Admin: 02/07/20 20:27 Dose: 25 mg Documented by: Naloxone HCl (Naloxone 0.4 Mg/Ml 1 Ml Vial) 0.2 mg IV Q2M PRN PRN Reason: Opioid Reversal Pantoprazole Sodium (Pantoprazole 40 Mg Tablet) 40 mg PO AC-BRKFST COUNT INCLUDES THE [facility] Last Admin: 02/07/20 06:39 Dose: 40 mg Documented by: Physical examination: VITAL SIGNS: 97.9, 62, 16, 98 x 58, 98% room air GENERAL: Laying in bed, tired EYES: Pupils equal. Conjunctiva normal. NECK: JVD not raised; masses not palpable. HEART: First and second heart sounds are normal; no edema. LUNGS: Respiratory rate normal; decreased breath sounds. ABDOMEN: Soft, some suprapubic tenderness, but no guarding rigidity, liver spleen not palpable, no masses palpable. MUSCULAR skeletal: Evidence of OA especially in the hand . Loss of muscle mass PSYCH: Alert and oriented x3; mood and affect tired INVESTIGATIONS, reviewed in the clinical context: Potassium 3.7 creatinine 1.03 Previous testing White count 11.7 hemoglobin 12.4 platelets 254 potassium 5.9 BUN 51 and cr eatinine 1.51 Troponin I 0.165 CRP 150 UA positive for ketones, few questions, WBC COVID 19 PCR not detected EKG tracing personally reviewed by me-atrial fibrillation rate 74 Chest x-ray film personally reviewed by me-possible chronic changes Previous testing: Creatinine 0.84 on 11/15/2019 Assessment: -Acute UTI with cystitis, POA, urine culture growing gram-negative bacilli -Acute kidney injury prerenal from decreased oral intake and being on Lasix- improving -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 Spoke to the nurse to get the patient out of bed. Increase activity. Continue ceftriaxone. Blood pressures to run in the low side. Will DC [employer] for now.
[2020-02-07 21:33] LABS: Glucose,Whole Blood 128 mg/dL (75-99)
[2020-02-08] MEDS: LEVOTHYROXINE 50 MCG TAB PO SCH (06:43)
[2020-02-08] MEDS: PANTOPRAZOLE 40 MG TABLET PO SCH (06:43)
[2020-02-08 07:02] LABS: Glucose,Whole Blood 99 mg/dL (75-99)
[2020-02-08 07:44] LABS: HGB 10.3 gm/dL (11.4-16.0); Hypochromasia Slight; MCH 28.9 pg (25.0-35.0); MCHC 31.2 g/dL (31.0-37.0); MCV 92.6 fL (80.0-100.0); Mean Platelet Volume 8.8; Platelet Count 237 k/uL (150-450); RBC 3.57 m/uL (3.80-5.40); RDW 13.8 % (11.5-15.5); WBC 10.6 k/uL (3.8-10.6)
[2020-02-08 08:06] LABS: Calcium 8.3 mg/dL (8.4-10.2); Potassium 3.7 mmol/L (3.5-5.1)
[2020-02-08] MEDS: METOPROLOL TARTRATE 25 MG TAB PO SCH ×2 (09:00→19:57)
[2020-02-08] MEDS: APIXABAN 2.5 MG TABLET PO SCH ×2 (09:00→19:57)
[2020-02-08] MEDS: LACTATED RINGERS 1,000 ML IV SCH (09:00)
[2020-02-08 12:11] LABS: Glucose,Whole Blood 146 mg/dL (75-99)
--- NOTE | 2020-02-08 12:11 | P.PN ---
Subjective HISTORY OF PRESENT ILLNESS This is a 84 -year old female with a past medical history significant for paroxysmal atrial fibrillation, diabetes mellitus, hypertension, hypothyroidism, and prior pacemaker insertion. Patient follows in the office with Dr. Avina. The patient is seen and examined laying flat resting comfortably in bed in no acute distress. She has no symptoms of chest pain, shortness of breath, dizziness or palpitations. Blood pressure 94/54 heart rate 67 afebrile maintaining oxygen saturation on room air. Laboratory data reviewed, WBC 10.6, hemoglobin 10.3, platelets 237, sodium 136, potassium 3.7, creatinine 1.08. Currently maintained on Eliquis for anticoagulation and Lopressor for rate control. PHYSICAL EXAM GENERAL: Well-developed in no acute distress. HEENT: Head is normocephalic. Pupils are equal, round. Sclerae anicteric. Mucous membranes of the mouth are moist. Neck supple. No JVD or thyromegaly LUNGS: Respirations even and unlabored. Lungs essentially clear to auscultation bilaterally. HEART: Irregular rate and rhythm. S1 and S2 heard. Systolic murmur. EXTREMITIES: Normal range of motion. No clubbing or cyanosis. Peripheral pulses intact. No lower extremity edema ASSESSMENT Generalized weakness Acute urinary tract infection with leukocytosis Paroxysmal atrial fibrillation, on long-term anticoagulation with Eliquis Elevated troponin, no signs of acute coronary syndrome, may be secondary to infectious process or acute kidney injury Aortic stenosis Acute kidney injury, improved. History of present pacemaker insertion, 2017, secondary to sick sinus syndrome Hypertension Hyperlipidemia Diabetes mellitus, type II PLAN Continue current medical regimen, we will follow along as needed. Follow up with Dr. Avina upon discharge. Nurse practitioner note has been reviewed by physician. Signing provider agrees with the documented findings, assessment, and plan of care. Objective - Vital Signs Vital signs: Vital Signs Temp 98.1 F 02/08/20 08:50 Pulse 67 02/08/20 08:50 Resp 16 02/08/20 08:50 BP 94/54 02/08/20 08:50 Pulse Ox 91 L 02/08/20 08:50 Intake & Output 02/07/20 02/08/20 02/08/20 18:59 06:59 18:59 Intake Total 360 400 120 Balance 360 400 120 Weight 60 kg Intake: IV 400 Lactated Ringers 1,000 ml 400 @ 50 mls/hr IV .Q20H [facility] Rx#:[id number] Intake, IV Titration 50 Amount cefTRIAXone 1 gm In 50 Sodium Chloride 0.9% 50 ml @ 100 mls/hr IVPB Q12HR [facility] Rx#:[id number] Oral 310 120 Other: Voiding Method Diaper Diaper Incontinent Incontinent # Voids 2 1 # Bowel Movements 1 - Labs CBC & Chem 7: 02/08/20 07:21 02/08/20 07:21 Labs: Abnormal Lab Results - Last 24 Hours (Table) 02/07/20 02/07/20 02/07/20 Range/Units 12:02 16:25 21:21 RBC (3.80-5.40) m/uL Hgb (11.4-16.0) gm/dL Hct (34.0-46.0) % Sodium (137-145) mmol/L BUN (7-17) mg/dL Creatinine (0.52-1.04) mg/dL Glucose (74-99) mg/dL POC Glucose (mg/dL) 139 H 134 H 128 H (75-99) mg/dL Calcium (8.4-10.2) mg/dL 02/08/20 02/08/20 Range/Units 07:21 07:21 RBC 3.57 L (3.80-5.40) m/uL Hgb 10.3 L (11.4-16.0) gm/dL Hct 33.0 L (34.0-46.0) % Sodium 136 L (137-145) mmol/L BUN 23 H (7-17) mg/dL Creatinine 1.08 H (0.52-1.04) mg/dL Glucose 120 H (74-99) mg/dL POC Glucose (mg/dL) (75-99) mg/dL Calcium 8.3 L (8.4-10.2) mg/dL Microbiology - Last 24 Hours (Table) 02/05/20 19:58 Urine Culture - Final Urine,Clean Catch Klebsiella pneumoniae
[2020-02-08 16:54] LABS: Glucose,Whole Blood 143 mg/dL (75-99)
--- NOTE | 2020-02-08 19:44 | P.PN ---
Progress Note - Text Progress Note Date: 02/08/20 Chief Complaint: weak History of presenting complaint: This is a pleasant 84-year-old patient of visiting physician Dr. Manzo. Chronic stable medical conditions include atrial fibrillation, CHF, diabetes, GERD, hypertension, hypothyroid, diverticulosis, urinary incontinence peripheral neuropathy. Patient is pending. Appetite is a diet. Patient went down to sit on the toilet and rundown. Was unable to get up. No fever no chills. No respiratory or urinary symptoms. Feeling weak in the muscles. Admitted with acute kidney injury, dehydration, acute UTI. Started on IV ceftriaxone, IV fluids. Today-oral intake better. Sitting up in a chair. needs assist and from sitting to standing. Review of systems: Was done for constitutional, cardiovascular, GI, pulmonary. relevant finding as above Active Medications Acetaminophen (Acetaminophen Tab 325 Mg Tab) 650 mg PO Q6HR PRN PRN Reason: Mild Pain or Fever > 100.5 Apixaban (Apixaban 2.5 Mg Tablet) 2.5 mg PO BID [facility] Last Admin: 02/08/20 09:00 Dose: 2.5 mg Documented by: Ceftriaxone Sodium 1 gm/ (Sodium Chloride) 50 mls @ 100 mls/hr IVPB Q12HR [facility] Last Admin: 02/08/20 09:00 Dose: 100 mls/hr Documented by: Lactated Ringer's (Lactated Ringers) 1,000 mls @ 50 mls/hr IV .Q20H [facility] Last Admin: 02/08/20 09:00 Dose: 50 mls/hr Documented by: Levothyroxine Sodium (Levothyroxine 50 Mcg Tab) 50 mcg PO 0630 [facility] Last Admin: 02/08/20 06:43 Dose: 50 mcg Documented by: Metoprolol Tartrate (Metoprolol Tartrate 25 Mg Tab) 25 mg PO BID [facility] Last Admin: 02/08/20 09:00 Dose: 25 mg Documented by: Naloxone HCl (Naloxone 0.4 Mg/Ml 1 Ml Vial) 0.2 mg IV Q2M PRN PRN Reason: Opioid Reversal Pantoprazole Sodium (Pantoprazole 40 Mg Tablet) 40 mg PO AC-BRKFST [facility] Last Admin: 02/08/20 06:43 Dose: 40 mg Documented by: Physical examination: VITAL SIGNS: 97.4, 60, 16, 94 x 56, 97% room air GENERAL: Sitting up in a chair, awake EYES: Pupils equal. Conjunctiva normal. NECK: JVD not raised; masses not palpable. HEART: First and second heart sounds are normal; no edema. LUNGS: Respiratory rate normal; decreased breath sounds. ABDOMEN: Soft, some suprapubic tenderness, but no guarding rigidity, liver spleen not palpable, no masses palpable. MUSCULAR skeletal: Evidence of OA especially in the hand . Loss of muscle mass PSYCH: Answering questions INVESTIGATIONS, reviewed in the clinical context: Creatinine 1.08 Previous testing White count 11.7 hemoglobin 12.4 platelets 254 potassium 5.9 BUN 51 and creatinine 1.51 Troponin I 0.165 CRP 150 UA positive for ketones, few questions, WBC COVID 19 PCR not detected EKG tracing personally reviewed by me-atrial fibrillation rate 74 Chest x-ray film personally reviewed by me-possible chronic changes Previous testing: Creatinine 0.84 on 11/15/2019 Assessment: -Acute UTI with cystitis, POA, urine culture growing Klebsiella pneumoniae -Acute kidney injury prerenal from decreased oral intake and being on Lasix- improving -Myopathy from electrolyte patient finding it difficult to stand up from a sitti ng position. -Persistent atrial fibrillation, rate controlled -Chronic congestive heart failure from diastolic dysfunction EF 55-60% -GERD, -Essential hypertension -Hypothyroid -Chronic diverticulosis -Chronic urinary incontinence -peripheral neuropathy - Plan: PT OT to see the case. Stable for discharge. Medications to continue.
[2020-02-08 21:14] LABS: Glucose,Whole Blood 120 mg/dL (75-99)
[2020-02-09] MEDS: LEVOTHYROXINE 50 MCG TAB PO SCH (06:06)
[2020-02-09] MEDS: PANTOPRAZOLE 40 MG TABLET PO SCH (06:06)
[2020-02-09] MEDS: LACTATED RINGERS 1,000 ML IV SCH (06:07)
[2020-02-09 08:01] LABS: Glucose,Whole Blood 108 mg/dL (75-99)
[2020-02-09] MEDS: METOPROLOL TARTRATE 25 MG TAB PO SCH (09:07)
[2020-02-09] MEDS: CEPHALEXIN 250 MG CAP PO SCH ×2 (09:07→16:41)
[2020-02-09] MEDS: APIXABAN 2.5 MG TABLET PO SCH (09:07)
[2020-02-09 11:44] LABS: Glucose,Whole Blood 191 mg/dL (75-99)
[2020-02-09 15:03] VITALS: BP 96/63; PULSE 52; RESP 20; TEMP 97.8
--- NOTE | 2020-02-09 15:34 | P.DS ---
Providers Date of admission: 02/09/20 09:06 Expected date of discharge: 02/09/20 Attending physician: Isidro Ceballos Consults: 02/06/20 09:44 Consult Physician Routine Consulting Provider: Favian Avina Consult Reason/Comments: elevated troponin Do you want consulting provider notified?: Yes Primary care physician: Bharath Manzo [facility] Course: Chief Complaint: weak History of presenting complaint: This is a pleasant 84-year-old patient of visiting physician Dr. Manzo. Chronic stable medical conditions include atrial fibrillation, CHF, diabetes, GERD, hypertension, hypothyroid, diverticulosis, urinary incontinence peripheral neuropathy. Patient is pending. Appetite is a diet. Patient went down to sit on the toilet and rundown. Was unable to get up. No fever no chills. No respiratory or urinary symptoms. Feeling weak in the muscles. Admitted with acute kidney injury, dehydration, acute UTI. Started on IV ceftriaxone, IV fluids. Troponin leak felt to be not from acute [place]. Acute kidney injury. Creatinine dropped from 1.51-1.08. Blood pressures running low amplitude been discontinued. Lasix discontinued. Today-up in a chair. Comfortable. Eating assistance with getting up. Will be going to inpatient rehab today. No new issues. Cleared by cardiology. Consultation: Dr. JEN Tse from [facility] Physical examination: VITAL SIGNS: 97.8, 52, 20, 96/63, 95% room air GENERAL: Sitting up in a chair, comfortable EYES: Pupils equal. Conjunctiva normal. NECK: JVD not raised; masses not palpable. HEART: First and second heart sounds are normal; no edema. LUNGS: Respiratory rate normal; decreased breath sounds. ABDOMEN: Soft, some suprapubic tenderness, but no guarding rigidity, liver spleen not palpable, no masses palpable. MUSCULAR skeletal: Evidence of OA especially in the hand . Decrease muscle mass PSYCH: Answering questions appropriately INVESTIGATIONS, reviewed in the clinical context: Creatinine 1.08 Coronavirus P/Cr-not detected Previous testing White count 11.7 hemoglobin 12.4 platelets 254 potassium 5.9 BUN 51 and creatinine 1.51 Troponin I 0.165 CRP 150 UA positive for ketones, few questions, WBC COVID 19 PCR not detected EKG tracing personally reviewed by me-atrial fibrillation rate 74 Chest x-ray film personally reviewed by me-possible chronic changes Previous testing: Creatinine 0.84 on 11/15/2019 Assessment: -Acute UTI with cystitis, POA, urine culture growing Klebsiella pneumoniae- computed course of antibiotic -Acute kidney injury prerenal from decreased oral intake and being on Lasix- improving -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 -Persistent atrial fibrillation, rate controlled -Chronic congestive heart failure from diastolic dysfunction EF 55-60% -GERD, -Essential hypertension -Hypothyroid -Chronic diverticulosis -Chronic urinary incontinence -peripheral neuropathy - Disposition: [facility] Patient Condition at Discharge: Fair Plan - Discharge Summary New Discharge Prescriptions: New Acetaminophen Tab [Tylenol] 650 mg PO Q6HR PRN tab PRN Reason: Mild Pain Or Fever > 100.5 Continue Omeprazole [PriLOSEC] 40 mg PO DAILY Metoprolol Tartrate [Lopressor] 25 mg PO BID tab [place]-3 Acid Ethyl Esters [Lovaza] 2 gm PO BID Levothyroxine Sodium [Synthroid] 50 mcg PO DAILY Apixaban [Eliquis] 2.5 mg PO BID V-C Forte 1 cap PO DAILY Discontinued amLODIPine [Norvasc] 10 mg PO DAILY tab Furosemide [Lasix] 20 mg PO DAILY Discharge Medication List Omeprazole [PriLOSEC] 40 mg PO DAILY 09/30/17 [History] Metoprolol Tartrate [Lopressor] 25 mg PO BID tab 10/15/17 [Rx] [place]-3 Acid Ethyl Esters [Lovaza] 2 gm PO BID 03/29/18 [History] Levothyroxine Sodium [Synthroid] 50 mcg PO DAILY 07/27/18 [History] Apixaban [Eliquis] 2.5 mg PO BID 11/14/19 [History] V-C Forte 1 cap PO DAILY 11/14/19 [History] Acetaminophen Tab [Tylenol] 650 mg PO Q6HR PRN tab 02/09/20 [Rx] Follow up Appointment(s)/Referral(s): Favian Avina MD [STAFF PHYSICIAN] - 02/23/20 2:00 pm Bharath Manzo MD [Primary Care Provider] - 1-2 days (office calls patient and schedules appt.) Patient Instructions/Handouts: Dehydration (DC), Acute Kidney Injury (DC)
[2020-02-09 16:38] LABS: Glucose,Whole Blood 133 mg/dL (75-99)
== END 2020-02-09 18:19 | DRG 690 ==
LOC: EC 19:32 → INTOOBSV 22:37 → 3SCARD 22:37 → 5NMEDONC 02-09 03:43 → OBSVTOIN 02-09 09:06
PROVIDERS: ADMIT Hospitalist; ATTEND Hospitalist
DX: N30.90 Cystitis, unspecified without hematuria (principal); I48.19 Other persistent atrial fibrillation; I50.32 Chronic diastolic (congestive) heart failure; N17.9 Acute kidney failure, unspecified; B96.1 Klebsiella pneumoniae [K. pneumoniae] as the cause of diseases classified elsewhere; E03.9 Hypothyroidism, unspecified; E11.42 Type 2 diabetes mellitus with diabetic polyneuropathy; E78.5 Hyperlipidemia, unspecified; E86.0 Dehydration; F32.9 Major depressive disorder, single episode, unspecified; I11.0 Hypertensive heart disease with heart failure; I27.20 Pulmonary hypertension, unspecified; I35.0 Nonrheumatic aortic (valve) stenosis; J42 Unspecified chronic bronchitis; R32 Unspecified urinary incontinence; K59.00 Constipation, unspecified; K57.90 Diverticulosis of intestine, part unspecified, without perforation or abscess without bleeding; K21.9 Gastro-esophageal reflux disease without esophagitis; R79.89 Other specified abnormal findings of blood chemistry; M16.10 Unilateral primary osteoarthritis, unspecified hip; Z20.828 Contact with and (suspected) exposure to other viral communicable diseases; Z88.2 Allergy status to sulfonamides; Z90.89 Acquired absence of other organs; Z90.49 Acquired absence of other specified parts of digestive tract; Z79.01 Long term (current) use of anticoagulants; Z79.890 Hormone replacement therapy; Z79.899 Other long term (current) drug therapy; Z82.49 Family history of ischemic heart disease and other diseases of the circulatory system; Z87.891 Personal history of nicotine dependence; Z95.0 Presence of cardiac pacemaker; J84.10 Pulmonary fibrosis, unspecified; G72.9 Myopathy, unspecified
CPT/HCPCS: 36415; 71045; 80048; 80053; 81001; 83605; 83735; 84484; 85025; 85027; 85610; 85730; 86140; 87077; 87086; 87186; 87635; 93005; 93306; 96361; 96374; 99285

== ENCOUNTER 2021-01-09 20:47 | Observation (INO) | payer MEDICARE, OTHER ==
[2021-01-09 21:14] LABS: Basophils % (A) 1 %; Eosinophils # (A) 0.4 k/uL (0-0.7); Eosinophils % (A) 5 %; HCT 37.8 % (34.0-46.0); HGB 12.1 gm/dL (11.4-16.0); Lymphocytes % (A) 26 %; MCH 29.7 pg (25.0-35.0); MCHC 32.1 g/dL (31.0-37.0); MCV 92.8 fL (80.0-100.0); Mean Platelet Volume 7.7; Monocytes # (A) 0.5 k/uL (0-1.0); Monocytes % (A) 7 %; Neutrophils # (A) 4.6 k/uL (1.3-7.7); Neutrophils % (A) 59 %; Platelet Count 218 k/uL (150-450); RBC 4.07 m/uL (3.80-5.40); RDW 13.1 % (11.5-15.5); WBC 7.8 k/uL (3.8-10.6)
[2021-01-09 21:25] LABS: Albumin 3.8 g/dL (3.5-5.0); Calcium 9.3 mg/dL (8.4-10.2); Magnesium 2.1 mg/dL (1.6-2.3); Potassium 4.5 mmol/L (3.5-5.1); Total Bilirubin 0.3 mg/dL (0.2-1.3); Total Protein 7.5 g/dL (6.3-8.2)
--- NOTE | 2021-01-09 21:36 | XR ---
EXAMINATION TYPE: XR chest 2V DATE OF EXAM: 01/09/2021 COMPARISON: 02/05/2020 HISTORY: Chest pain There is coarse pulmonary interstitial infiltrates in both lungs. Heart is enlarged. There is left a xillary pacemaker. There are chest leads. There is no heart failure. IMPRESSION: Pulmonary interstitial density increased slightly compared to old exam. This could be hillary e pulmonary fibrosis. No obvious heart failure.
[2021-01-09 21:44] LABS: INR 0.9 (<1.2); Partial Thromboplastin Time 23.3 sec (22.0-30.0); Prothrombin Time 10.2 sec (9.0-12.0)
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
[2021-01-09] MEDS ORDERED: MORPHINE SULFATE 4 MG/ML SYRINGE IVP STA (23:03)
[2021-01-09] MEDS ORDERED: NALOXONE 0.4 MG/ML 1 ML VIAL IV PRN (23:18)
[2021-01-10 03:58] LABS: Basophils % (A) 1 %; Eosinophils # (A) 0.2 k/uL (0-0.7); Eosinophils % (A) 4 %; HCT 36.6 % (34.0-46.0); HGB 11.5 gm/dL (11.4-16.0); Lymphocytes # (A) 1.9 k/uL (1.0-4.8); Lymphocytes % (A) 29 %; MCH 29.6 pg (25.0-35.0); MCHC 31.4 g/dL (31.0-37.0); MCV 94.3 fL (80.0-100.0); Mean Platelet Volume 8.3; Monocytes # (A) 0.4 k/uL (0-1.0); Monocytes % (A) 6 %; Neutrophils # (A) 3.8 k/uL (1.3-7.7); Neutrophils % (A) 59 %; Platelet Count 194 k/uL (150-450); RBC 3.89 m/uL (3.80-5.40); RDW 13.1 % (11.5-15.5); WBC 6.5 k/uL (3.8-10.6)
[2021-01-10 04:10] LABS: Potassium 4.5 mmol/L (3.5-5.1)
[2021-01-10 04:11] LABS: Calcium 8.9 mg/dL (8.4-10.2)
[2021-01-10 08:03] VITALS: RESP 16
[2021-01-10] MEDS ORDERED: APIXABAN 2.5 MG TABLET PO SCH (10:45)
[2021-01-10] MEDS ORDERED: LEVOTHYROXINE 50 MCG TAB PO SCH (10:45)
[2021-01-10] MEDS ORDERED: PANTOPRAZOLE 40 MG TABLET PO SCH (10:45)
--- NOTE | 2021-01-10 11:30 | CONS ---
CONSULTATION CHIEF COMPLAINT: Chest pain. Halle is an 85-year-old lady who appears pleasantly confused, has history of persistent atrial fibrillation. She was brought into hospital because of chest discomfort. She has right-sided chest wall pain, and the pain has been going on for the last several months but had worsened earlier yesterday, due to which she came to hospital. Her pain worsens with deep breathing. Patient is already on Eliquis 2.5 b.i.d. Patient's chest pain seems musculoskeletal. She has had a fall and that could be the reason. She appears mildly confused at rest. EKG shows atrial fibrillation with nonspecific T-wave inversions in the inferolateral leads. Her D-dimer is mildly elevated at 0.75. Coronavirus is negative. Potassium is 4.5. Creatinine is 1.1. Three sets of troponins are negative. Patient has a history of a single-chamber pacemaker. PAST MEDICAL HISTORY: Significant for persistent atrial fibrillation, sick sinus syndrome, status post permanent pacemaker, hypothyroidism. MEDICATIONS: Medications at home included iron, Prilosec, fish oil, Lovaza, metoprolol 25 b.i.d., Synthroid and Eliquis. ALLERGIES: The patient is ALLERGIC TO SULFA. FAMILY HISTORY: Negative for premature coronary artery disease. SOCIAL HISTORY: Negative for current smoking, EtOH abuse or drug abuse. REVIEW OF SYSTEMS: HEENT is unremarkable. CARDIAC: As described above. RESPIRATORY: Negative. GI: Negative. GENITOURINARY: Negative. ALLERGY/IMMUNOLOGY: Negative. MUSCULOSKELETAL: Significant for falls. PSYCHOSOCIAL: Negative. DERMATOLOGY: Negative. CONSTITUTIONAL: Negative. ONCOLOGICAL: Negative. Rest of the system review is not relevant. PHYSICAL EXAMINATION: Heart rate is 63 beats per minute. Blood pressure is 130/72. Respiratory rate is 16. Oxygen saturation is 94% on room air. There is no jugular venous distention. Carotid upstroke is normal. There is no bruit. Chest exam reveals diminished air entry at the bases. Heart exam reveals first and second heart sounds, ejection systolic murmur in the aortic area. Abdomen is soft. Examination of extremities did not reveal any edema. Peripheral pulses are felt. The patient had an echocardiogram in January of last year that showed an ejection fraction of 55% with mild to moderate mitral regurgitation, mild to moderate aortic stenosis with mild pulmonary hypertension. EKG on this admission revealed atrial fibrillation with nonspecific ST-T wave changes. Labs show that DE is ruled out. ASSESSMENT: 1. Precordial chest pain. 2. Persistent atrial fibrillation. 3. Status post permanent pacemaker. PLAN: Patient's chest discomfort is sharp, atypical, probably musculoskeletal. I will obtain a 2D echo and if necessary she will undergo an outpatient stress test. PATTI / CLARITAN: [id number] /
--- NOTE | 2021-01-10 11:51 | ECHOF ---
Referral Reason:Chest Pain MEASUREMENTS -------- HEIGHT: 152.4 cm WEIGHT: 65.8 kg BP: RVIDd: 3.4 cm (< 3.3) IVSd: 1.2 cm (0.6 - 1.1) LVIDd: 4.1 cm (3.9 - 5.3) LVPWd: 1.2 cm (0.6 - 1.1) IVSs: 1.8 cm LVIDs: 3.2 cm LVPWs: 1.8 cm LA Diam: 4.5 cm (2.7 - 3.8) LAESV Index (A-L): 65.21 ml/m Ao Diam: 0.9 cm (2.0 - 3.7) AV Cusp: 0.9 cm (1.5 - 2.6) LA Diam: 5.1 cm (2.7 - 3.8) MV EXCURSION: 17.752 mm (> 18.000) MV EF SLOPE: 71 mm/s (70 - 150) EPSS: 0.6 cm MV E Johnnie: 0.94 m/s MV DecT: 206 ms MV A Johnnie: 0.26 m/s MV E/A Ratio: 3.61 AV maxP.97 mmHg AV meanP.63 mmHg RAP: 10.00 mmHg RVSP: 59.19 mmHg FINDINGS -------- Undetermined rhythm. This was a technically good study. The left ventricular size is normal. Overall left ventricular systolic function is low-normal with, an EF between 50 - 55 %. The right ventricle is normal in size. LA is severely dilated >40 ml/m2 The right atrial size is normal. Trace to mild aortic regurgitation. There is moderate aortic stenosis present. Peak/mean gradient across the Aortic Valve is 29.97mmHg / 14.63mmHg. Mild mitral annular calcification present. Mild mitral regurgitation is present. Moderate tricuspid regurgitation present. There is moderate pulmonary hypertension. The right jorge alberto tricular systolic pressure, as measured by Doppler, is 59.19mmHg. Trace/mild (physiologic) pulmonic regurgitation. There is no pericardial effusion. CONCLUSIONS -------- 1. The left ventricular size is normal. 2. Overall left ventricular systolic function is low-normal with, an EF between 50 - 55 %. 3. The right ventricle is normal in size. 4. LA is severely dilated >40 ml/m2 5. The right atrial size is normal. 6. Trace to mild aortic regurgitation. 7. There is moderate aortic stenosis present. 8. Peak/mean gradient across the Aortic Valve is 29.97mmHg / 14.63mmHg. 9. Mild mitral annular calcification present. 10. Mild mitral regurgitation is present. 11. Moderate tricuspid regurgitation present. 12. There is moderate pulmonary hypertension. 13. The right ventricular systolic pressure, as measured by Doppler, is 59.19mmHg. 14. Trace/mild (physiologic) pulmonic regurgitation. 15. There is no pericardial effusion. TAG STRINGER: Janee Malik RDCS
[2021-01-10 12:32] VITALS: BP 124/58; PULSE 58; TEMP 98.6
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
--- NOTE | 2021-01-10 20:02 | P.DS ---
Providers Date of admission: 01/09/21 23:20 Expected date of discharge: 01/10/21 Attending physician: Isidro Ceballos Consults: 01/09/21 23:19 Consult Physician Urgent Consulting Provider: [facility] Consult Reason/Comments: acute chest pain Do you want consulting provider notified?: Yes Primary care physician: Francisco Hall MD Hospital Course: Chief Complaint: Right-sided chest pain This is a 85-year-old patient, follows with , from visiting physicians. Chronic stable medical conditions include diabetes, hypertension, hypothyroid, peripheral neuropathy, urinary incontinence. Lives of the [employer]. Does have a walker and a cane. Patient took a fall about 4-5 days ago she not sure about the time. It looks like it was a mechanical fall. No associated dizziness or lightheadedness. Patient fell on the right side. Since then she's been having pain on the right side of the chest below the right breast. It does not radiate. Worse on pushing up on it. Not associated with shortness of breath dizziness or lightheadedness. Patient of the most detailed historian but is able to answer simple questions. Patient seen by cardiology Cleared for discharge. Pain is felt to be muscular skeletal We'll follow up with them outpatient. Consultation: Dr. Benita Anderson Past medical history to include: Diabetes, hypertension, hypothyroid, ALLERGIES, constipation, urinary incontinence, peripheral neuropathy, diverticulosis Social history: Lives of [employer]. Has a walker has not been using it much. Patient smoked for 48 years stopped in 2005. Alcohol rarely. Family history: [place] Physical examination: VITAL SIGNS: 98.6, 58, 16, 124/58, 100% room air GENERAL: BMI 28.4, laying in bed, comfortable. EYES: Pupils equal. Conjunctiva normal. 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 HEART: First and second heart sounds are normal; no edema. LUNGS: Respiratory rate normal; clear to auscultation. ABDOMEN: Soft, nontender, liver spleen not palpable, no masses palpable. PSYCH: Mood and affect normal. Patient knows that she the hospital and knows the month of the year.jarred INVESTIGATIONS, reviewed in the clinical context: 2-D echocardiogram: EF 50-55% moderate aortic stenosis present moderate tricuspid regurgitation present moderate pulmonary hypertension present White count 6.5 hemoglobin 11.5 platelets 194 potassium 4.5 BUN 23 creatinine 1.19 Creatinine 0.018, 0.018, 0.022 Coronavirus [PCR]: Not detected Admission labs: BUN 23 creatinine 1.34 EKG tracing personally reviewed by me-atrial fibrillation. Rate 65. Flipped T waves in lead to 3 aVF, V4-V6 Assessment and plan: -Right chest wall anterior pain: Musculoskeletal secondary to fall Patient fell a few days ago. Has had localized reproducible pain since then. Cleared for discharge by cardiology -Persistent atrial fibrillation, rate controlled On eliquis 2.5 mg twice a day. -Hypothyroid Synthroid 50 g daily -Moderate aortic stenosis Follow with cardiology -Tricuspid regurgitation Follow clinically -Secondary pulmonary hypertension, moderate Follow clinically -Mild cognitive impairment -Chronic urinary stress incontinence wears diapers -Peripheral neuropathy Follow clinically Disposition: Assisted-living Patient Condition at Discharge: Stable Plan - Discharge Summary New Discharge Prescriptions: Continue Omeprazole [PriLOSEC] 40 mg PO DAILY Metoprolol Tartrate [Lopressor] 25 mg PO BID tab [place]-3 Acid Ethyl Esters [Lovaza] 2 gm PO BID Levothyroxine Sodium [Synthroid] 50 mcg PO DAILY Apixaban [Eliquis] 2.5 mg PO BID V-C Forte 1 cap PO W/LUNCH [place]-3 Fatty Acids/Fish Oil [Fish Oil 1,000 mg Softgel] 1 cap PO BID@0800,1300 Ferrous Sulfate [Iron (65 MG Elemental)] 325 mg PO HS Discharge Medication List Omeprazole [PriLOSEC] 40 mg PO DAILY 09/30/17 [History] Metoprolol Tartrate [Lopressor] 25 mg PO BID tab 10/15/17 [Rx] [place]-3 Acid Ethyl Esters [Lovaza] 2 gm PO BID 03/29/18 [History] Levothyroxine Sodium [Synthroid] 50 mcg PO DAILY 07/27/18 [History] Apixaban [Eliquis] 2.5 mg PO BID 11/14/19 [History] V-C Forte 1 cap PO W/LUNCH 11/14/19 [History] Ferrous Sulfate [Iron (65 MG Elemental)] 325 mg PO HS 01/10/21 [History] [place]-3 Fatty Acids/Fish Oil [Fish Oil 1,000 mg Softgel] 1 cap PO BID@0800,1300 01/10/21 [History] Follow up Appointment(s)/Referral(s): Francisco Hall MD [Primary Care Provider] - 1-2 days Meagan Adams MD [STAFF PHYSICIAN] - 1 Week Activity/Diet/Wound Care/Special Instructions: R chest ice pack as needed heating pad Discharge Disposition: HOME SELF-CARE
[2021-01-10] MEDS ORDERED: FERROUS SULFATE 325 MG TAB PO SCH (21:00)
[2021-01-10] MEDS ORDERED: MELATONIN 3 MG TABLET PO SCH (21:00)
== END 2021-01-10 15:00 | disposition home or self-care (01) ==
LOC: SUPCPDRO 20:47 → EC 20:47 → 1SOBS 23:20
PROVIDERS: ADMIT Hospitalist; ATTEND Hospitalist
DX: R07.2 Precordial pain (principal); W18.30XA Fall on same level, unspecified, initial encounter; I48.19 Other persistent atrial fibrillation; E03.9 Hypothyroidism, unspecified; I35.0 Nonrheumatic aortic (valve) stenosis; Z20.822 Contact with and (suspected) exposure to COVID-19; I07.1 Rheumatic tricuspid insufficiency; I27.29 Other secondary pulmonary hypertension; N39.3 Stress incontinence (female) (male); E11.42 Type 2 diabetes mellitus with diabetic polyneuropathy; R29.6 Repeated falls; I49.5 Sick sinus syndrome; F32.9 Major depressive disorder, single episode, unspecified; I10 Essential (primary) hypertension; G31.84 Mild cognitive impairment of uncertain or unknown etiology; K57.90 Diverticulosis of intestine, part unspecified, without perforation or abscess without bleeding; J30.2 Other seasonal allergic rhinitis; Z79.899 Other long term (current) drug therapy; Z79.890 Hormone replacement therapy; Z79.01 Long term (current) use of anticoagulants; Z88.2 Allergy status to sulfonamides; Z87.891 Personal history of nicotine dependence; Z95.0 Presence of cardiac pacemaker; Z90.49 Acquired absence of other specified parts of digestive tract; Z82.49 Family history of ischemic heart disease and other diseases of the circulatory system
CPT/HCPCS: 99285; 96374; 36415; 93005; 93306; 85379; 80053; 80048; 83735; 84484 ×2; 85025 ×2; 85610; 85730; 87635; 71046; G0378 ×2; J2270

== ENCOUNTER 2021-07-27 17:24 | Inpatient (IN) | payer MEDICARE, OTHER ==
[2021-07-27] MEDS ORDERED: SODIUM CHLORIDE 0.9% 500 ML 500 ML IV ONE (17:36)
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
[2021-07-27 17:58] LABS: Basophils # (A) 0.1 k/uL (0-0.2); Basophils % (A) 1 %; Eosinophils # (A) 0.4 k/uL (0-0.7); Eosinophils % (A) 7 %; HCT 36.8 % (34.0-46.0); HGB 11.6 gm/dL (11.4-16.0); Lymphocytes # (A) 1.1 k/uL (1.0-4.8); Lymphocytes % (A) 19 %; MCH 29.4 pg (25.0-35.0); MCHC 31.5 g/dL (31.0-37.0); MCV 93.4 fL (80.0-100.0); Mean Platelet Volume 7.9; Monocytes # (A) 0.4 k/uL (0-1.0); Monocytes % (A) 6 %; Neutrophils # (A) 3.5 k/uL (1.3-7.7); Neutrophils % (A) 63 %; Platelet Count 227 k/uL (150-450); RBC 3.94 m/uL (3.80-5.40); RDW 13.6 % (11.5-15.5); WBC 5.6 k/uL (3.8-10.6)
[2021-07-27 18:08] LABS: INR 1.1 (<1.2); Partial Thromboplastin Time 25.5 sec (22.0-30.0); Prothrombin Time 11.6 sec (9.0-12.0)
[2021-07-27 18:13] LABS: Glucose,Whole Blood 102 mg/dL (75-99)
[2021-07-27 18:22] LABS: Albumin 3.7 g/dL (3.5-5.0); Calcium 8.6 mg/dL (8.4-10.2); Potassium 3.8 mmol/L (3.5-5.1); Total Bilirubin 0.8 mg/dL (0.2-1.3); Total Protein 7.3 g/dL (6.3-8.2)
[2021-07-27 18:59] LABS: Amphetamine Screen,Urine Not Detected (NotDetected); Barbiturate Screen,Urine Not Detected (NotDetected); Benzodiazepines Screen,Urine Not Detected (NotDetected); Cocaine Screen,Urine Not Detected (NotDetected); Methadone Screen, Urine Not Detected (NotDetected); Opiate Screen,Urine Not Detected (NotDetected); Oxycodone Screen, Urine Not Detected (NotDetected); Phencyclidine Screen,Urine Not Detected (NotDetected); Tricyclic Antidepressant,Urine Not Detected (NotDetected); Urn Cannabinoid Scrn Not Detected (NotDetected)
[2021-07-27 19:04] LABS: Appearance,Urine Turbid (Clear); Bacteria,Urine Many /hpf; Bilirubin,Urine Negative (Negative); Blood,Urine Moderate (Negative); Color,Urine Yellow; Glucose,Urine (UA) Negative (Negative); Ketones,Urine Negative (Negative); Leukocyte Esterase,Urine Large (Negative); Mucus,Urine Rare /hpf; Nitrite,Urine Negative (Negative); Protein,Urine Trace (Negative); RBC,Urine >182 /hpf (0-5); Specific Gravity,Urine 1.016 (1.001-1.035); Squamous Epithelial Cell,Urine 3 /hpf (0-4); Urobilinogen,Urine <2.0 mg/dL (<2.0); WBC,Urine >182 /hpf (0-5)
[2021-07-27] MEDS ORDERED: cefTRIAXone IN SWFI 1,000 MG/10 ML SYRINGE IVP STA (20:01)
--- NOTE | 2021-07-27 20:09 | XR ---
EXAMINATION TYPE: XR chest 2V DATE OF EXAM: 07/27/2021 COMPARISON: 01/09/2021 HISTORY: Chest pain TECHNIQUE: 2 views FINDINGS: There is coarse interstitial infiltrate in both lungs. There is slight blunting of the cost ophrenic angles. There are chest leads. There is left axillary pacemaker. No heart failure seen. IMPRESSION: Pulmonary interstitial fibrosis without change. Normal heart.
--- NOTE | 2021-07-27 20:38 | P.PN ---
Progress Note - Text Progress Note Date: 07/27/21 Case discussed with the administrative charge. The patient meets criteria for inpatient hospitalization. Patient will therefore be switched to Dr. Ceballos. The case was discussed with Dr Ceballos who is aware of this patient.
[2021-07-27] MEDS ORDERED: NITROGLYCERIN SL TABS 0.4 MG TAB SUBLINGUAL PRN (20:43)
[2021-07-27] MEDS: METOPROLOL TARTRATE 25 MG TAB PO SCH (23:16)
[2021-07-27] MEDS: APIXABAN 2.5 MG TABLET PO SCH (23:16)
[2021-07-27] MEDS: NITROGLYCERIN OINT 1 INCH/GM PACKET TOPICAL SCH (23:16)
[2021-07-28] MEDS: NITROGLYCERIN OINT 1 INCH/GM PACKET TOPICAL SCH ×4 (06:33→22:06)
[2021-07-28] MEDS ORDERED: ASPIRIN 325 MG TAB PO SCH (09:00)
[2021-07-28] MEDS ORDERED: NITROFURANTOIN MONOHYD/M-CRYST 100 MG CAP PO SCH (09:00)
[2021-07-28] MEDS ORDERED: FUROSEMIDE 20 MG TAB PO SCH (09:00)
[2021-07-28] MEDS ORDERED: NON FORMULARY DRUG (Omega-3 Acid Ethyl Esters [Lovaza] 1 GM Capsule) PO SCH (09:00)
[2021-07-28] MEDS: PANTOPRAZOLE 40 MG TABLET PO SCH (09:12)
[2021-07-28] MEDS: METOPROLOL TARTRATE 25 MG TAB PO SCH ×2 (09:12→19:59)
[2021-07-28] MEDS: amLODIPine 10 MG TAB PO SCH (09:13)
[2021-07-28] MEDS: FERROUS SULFATE 325 MG TAB PO SCH (09:13)
[2021-07-28] MEDS: APIXABAN 2.5 MG TABLET PO SCH ×2 (09:13→19:59)
[2021-07-28 09:52] LABS: Chol/HDL Ratio 4.25 Ratio; LDL Cholesterol,Calculated 128.4 mg/dL (0.0-131.0)
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
[2021-07-28] MEDS ORDERED: NALOXONE 0.4 MG/ML 1 ML VIAL IV PRN (12:09)
[2021-07-28] MEDS ORDERED: CALCIUM CARBONATE 500 MG CHEWABLE PO PRN (12:09)
[2021-07-28] MEDS ORDERED: ACETAMINOPHEN TAB 325 MG TAB PO PRN (12:09)
[2021-07-28] MEDS ORDERED: LACTULOSE 20 GM/30 ML CUP PO PRN (12:09)
[2021-07-28] MEDS ORDERED: ONDANSETRON 4 MG/2 ML VIAL IVP PRN (12:09)
[2021-07-28] MEDS ORDERED: ZOLPIDEM 5 MG TAB PO PRN (12:10)
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
[2021-07-29] MEDS: NITROGLYCERIN OINT 1 INCH/GM PACKET TOPICAL SCH ×3 (05:34→17:44)
[2021-07-29 05:40] VITALS: RESP 16
[2021-07-29] MEDS: PANTOPRAZOLE 40 MG TABLET PO SCH (08:58)
[2021-07-29] MEDS: APIXABAN 2.5 MG TABLET PO SCH (08:58)
[2021-07-29] MEDS: METOPROLOL TARTRATE 25 MG TAB PO SCH (08:58)
[2021-07-29] MEDS: amLODIPine 10 MG TAB PO SCH (08:58)
[2021-07-29] MEDS: FERROUS SULFATE 325 MG TAB PO SCH (08:58)
[2021-07-29 10:25] VITALS: BP 144/85; PULSE 60; TEMP 97
--- NOTE | 2021-07-29 20:29 | P.DS ---
Providers Date of admission: 07/27/21 20:43 Expected date of discharge: 07/29/21 Attending physician: Isidro Ceballos Consults: 07/27/21 20:43 Consult Physician Urgent Consulting Provider: [facility] Consult Reason/Comments: Elevated troponin Do you want consulting provider notified?: Yes Primary care physician: Francisco Hall MD Hospital Course: Chief Complaint: Confused This is a 85-year-old patient, follows with , from visiting physicians. Chronic stable medical conditions include diabetes, hypertension, hypothyroid, peripheral neuropathy, urinary incontinence. Lives at [facility]. Does have a walker and a cane. Patient herself is not a very good historian. She is not sure why she is here. Per the EMS when they arrived patient was sitting at the bench in the hallway with a caregiver. Patient was treated for last 2 days with Macrobid for UTI. Patient has a baseline says intermittent confusion. Has been more so worse for the last 2 days. She did answer questions. No fever was described. Patient other days foul-smelling urine. Patient's son Wilfred has the power of disability attorney. This morning patient's other tired and very sleepy. She thinks she lives here. No pain. Sleepy. Admitted with acute metabolic encephalopathy from UTI with cystitis. Started on IV ceftriaxone. July 29: Doing much better. Eating better. More awake. Spoke to the side of the bedside. We will complete 3 days of Ceftin. Discussion and discharge planning more than 35 minutes Past medical history to include: Diabetes, hypertension, hypothyroid, ALLERGIES, constipation, urinary incontinence, peripheral neuropathy, diverticulosis Social history: Lives of [facility]. Has a walker has not been using it much. Patient smoked for 48 years stopped in 2005. Alcohol rarely. Family history: [place] Physical examination: VITAL SIGNS: 97, 60, 16, 144/85, 94% room air GENERAL: Sitting up in a chair, eating EYES: Pupils equal. Conjunctiva normal. HEENT: External appearance of nose and ears normal, oral cavity grossly normal. NECK: JVD not raised; masses not palpable. HEART: First and second heart sounds are normal; no edema. LUNGS: Respiratory rate normal; clear to auscultation. ABDOMEN: Soft, nontender, liver spleen not palpable, no masses palpable. PSYCH: Answering simple questions MUSCULOSKELETAL:No Clubbing/cyanosis;muscles-grossly intact. Evidence of OA INVESTIGATIONS, reviewed in the clinical context: White count 5.6 hemoglobin 11.6 platelets 227 sodium 139 potassium 3.8. 21 creatinine 1.19 Troponin I 0.043, 0.055 LDL 128 UA positive for leukoesterase, WBC Urine drug screen: Negative Chest x-ray film personally reviewed by me-possible chronic changes Telemetry tracing personally reviewed by me: Atrial fibrillation. Rate controlled Assessment and plan: -Altered mental status likely acute metabolic encephalopathy from underlying UTI: Improved -Persistent atrial fibrillation, rate controlled On eliquis 2.5 mg twice a day. Lopressor 25 mg twice a day -Moderate aortic stenosis Follow with cardiology -Tricuspid regurgitation Follow clinically -Secondary pulmonary hypertension, moderate Follow clinically -Moderate cognitive impairment, likely from late onset Alzheimer's dementia -Chronic urinary stress incontinence wears diapers -Peripheral neuropathy Follow clinically -Acute UTI with cystitis IV ceftriaxone. Complete 3 days of Ceftin. 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 No active chest pain reported. Doubt ACS. Cardiology consultation -Chronic gait dysfunction uses a walker at baseline Fall precautions Disposition: Home Plan - Discharge Summary Discharge Rx Participant: No New Discharge Prescriptions: New Cefuroxime Axetil [Ceftin] 500 mg PO BID #6 tab Continue Omeprazole [PriLOSEC] 40 mg PO DAILY Metoprolol Tartrate [Lopressor] 25 mg PO BID tab [place]-3 Acid Ethyl Esters [Lovaza] 1 gm PO BID Apixaban [Eliquis] 2.5 mg PO BID amLODIPine [Norvasc] 10 mg PO DAILY Ferrous Sulfate [Iron (65 MG Elemental)] 325 mg PO DAILY Discontinued Furosemide [Lasix] 20 mg PO DAILY Nitrofurantoin Monohyd/M-Cryst [Macrobid] 100 mg PO BID No Action V-C Forte 1 cap PO DAILY Discharge Medication List Omeprazole [PriLOSEC] 40 mg PO DAILY 09/30/17 [History] Metoprolol Tartrate [Lopressor] 25 mg PO BID tab 10/15/17 [Rx] [place]-3 Acid Ethyl Esters [Lovaza] 1 gm PO BID 03/29/18 [History] Apixaban [Eliquis] 2.5 mg PO BID 11/14/19 [History] V-C Forte 1 cap PO DAILY 11/14/19 [History] Ferrous Sulfate [Iron (65 MG Elemental)] 325 mg PO DAILY 01/10/21 [History] amLODIPine [Norvasc] 10 mg PO DAILY 07/27/21 [History] Cefuroxime Axetil [Ceftin] 500 mg PO BID #6 tab 07/29/21 [Rx] Follow up Appointment(s)/Referral(s): Favian Avina MD [STAFF PHYSICIAN] - 08/08/21 9:30 am (Sunday) Francisco Hall MD [Primary Care Provider] - 1-2 days (Not answering phone. Please call to schedule appointment) Patient Instructions/Handouts: Urinary Tract Infection in Older Adults (DC) Discharge Disposition: HOME SELF-CARE
== END 2021-07-29 18:35 | disposition home or self-care (01) | DRG 689 ==
LOC: EC 17:24 → 3SCARD 20:43
PROVIDERS: ADMIT Hospitalist; ATTEND Hospitalist
DX: N30.90 Cystitis, unspecified without hematuria (principal); G93.41 Metabolic encephalopathy; I48.11 Longstanding persistent atrial fibrillation; N17.9 Acute kidney failure, unspecified; E03.9 Hypothyroidism, unspecified; E11.22 Type 2 diabetes mellitus with diabetic chronic kidney disease; E11.42 Type 2 diabetes mellitus with diabetic polyneuropathy; E86.0 Dehydration; F02.80 Dementia in other diseases classified elsewhere, unspecified severity, without behavioral disturbance, psychotic disturbance, mood disturbance, and anxiety; F32.A Depression, unspecified; G30.1 Alzheimer's disease with late onset; I08.2 Rheumatic disorders of both aortic and tricuspid valves; R26.9 Unspecified abnormalities of gait and mobility; I12.9 Hypertensive chronic kidney disease with stage 1 through stage 4 chronic kidney disease, or unspecified chronic kidney disease; I27.29 Other secondary pulmonary hypertension; R77.8 Other specified abnormalities of plasma proteins; K57.90 Diverticulosis of intestine, part unspecified, without perforation or abscess without bleeding; K59.00 Constipation, unspecified; N18.30 Chronic kidney disease, stage 3 unspecified; N39.3 Stress incontinence (female) (male); J42 Unspecified chronic bronchitis; Z79.01 Long term (current) use of anticoagulants; Z79.890 Hormone replacement therapy; Z79.899 Other long term (current) drug therapy; Z82.49 Family history of ischemic heart disease and other diseases of the circulatory system; Z87.440 Personal history of urinary (tract) infections; Z87.891 Personal history of nicotine dependence; Z95.0 Presence of cardiac pacemaker; Z90.89 Acquired absence of other organs; Z90.49 Acquired absence of other specified parts of digestive tract; Z88.2 Allergy status to sulfonamides; Z98.890 Other specified postprocedural states
CPT/HCPCS: 36415; 71046; 80053; 80061; 80306; 81001; 83605; 84484; 85025; 85610; 85730; 87040; 87086; 96374; 99285

== ENCOUNTER 2021-09-03 19:26 | Inpatient (IN) | payer MEDICARE, OTHER ==
[2021-09-03] MEDS ORDERED: SODIUM CHLORIDE 0.9% 1,000 ML IV STA (19:37)
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
[2021-09-03 20:30] LABS: Basophils # (A) 0.1 k/uL (0-0.2); Basophils % (A) 1 %; Eosinophils # (A) 0.3 k/uL (0-0.7); Eosinophils % (A) 3 %; HGB 13.2 gm/dL (11.4-16.0); Hypochromasia Slight; Lymphocytes # (A) 1.5 k/uL (1.0-4.8); Lymphocytes % (A) 17 %; MCH 29.6 pg (25.0-35.0); MCHC 31.4 g/dL (31.0-37.0); MCV 94.2 fL (80.0-100.0); Mean Platelet Volume 8.7; Monocytes # (A) 0.4 k/uL (0-1.0); Monocytes % (A) 4 %; Neutrophils # (A) 6.4 k/uL (1.3-7.7); Neutrophils % (A) 72 %; Platelet Count 248 k/uL (150-450); RBC 4.46 m/uL (3.80-5.40); RDW 13.3 % (11.5-15.5); WBC 8.9 k/uL (3.8-10.6)
[2021-09-03 20:38] LABS: INR 1.1 (<1.2)
[2021-09-03 20:39] LABS: Partial Thromboplastin Time 22.3 sec (22.0-30.0); Prothrombin Time 11.9 sec (9.0-12.0)
[2021-09-03] MEDS ORDERED: cefTRIAXone IN SWFI 1,000 MG/10 ML SYRINGE IVP STA (20:44)
[2021-09-03 20:47] LABS: Potassium 3.9 mmol/L (3.5-5.1); Total Bilirubin 0.9 mg/dL (0.2-1.3); Total Protein 7.6 g/dL (6.3-8.2)
[2021-09-03 20:48] LABS: Appearance,Urine Turbid (Clear); Bacteria,Urine Many /hpf; Bilirubin,Urine Negative (Negative); Blood,Urine Moderate (Negative); Color,Urine Yellow; Glucose,Urine (UA) Negative (Negative); Ketones,Urine 1+ (Negative); Leukocyte Esterase,Urine Large (Negative); Mucus,Urine Few /hpf; Nitrite,Urine Positive (Negative); PH, Urine 5.5 (5.0-8.0); Protein,Urine 2+ (Negative); RBC,Urine 174 /hpf (0-5); Squamous Epithelial Cell,Urine 7 /hpf (0-4); WBC,Urine >182 /hpf (0-5)
[2021-09-03 20:50] LABS: Specific Gravity,Urine 1.019 (1.001-1.035)
--- NOTE | 2021-09-03 20:51 | XR ---
EXAMINATION TYPE: XR chest 2V DATE OF EXAM: 09/03/2021 COMPARISON: 07/27/2021 HISTORY: Altered mental status TECHNIQUE: FINDINGS: Heart is top normal in size. Lungs are clear of consolidation. There is left axillary pacem kvng. There is no pleural effusion. There are no hilar masses. There is minimal pleural reaction at t he lung bases. Thoracic spine is intact. IMPRESSION: There is some pleural reaction at the lung bases which is improved compared to old exam. No obvious heart failure.
[2021-09-03 20:54] LABS: Amphetamine Screen,Urine Not Detected (NotDetected); Barbiturate Screen,Urine Not Detected (NotDetected); Benzodiazepines Screen,Urine Not Detected (NotDetected); Cocaine Screen,Urine Not Detected (NotDetected); Methadone Screen, Urine Not Detected (NotDetected); Opiate Screen,Urine Not Detected (NotDetected); Oxycodone Screen, Urine Not Detected (NotDetected); Phencyclidine Screen,Urine Not Detected (NotDetected); Tricyclic Antidepressant,Urine Not Detected (NotDetected); Urn Cannabinoid Scrn Not Detected (NotDetected)
[2021-09-03] MEDS ORDERED: NALOXONE 0.4 MG/ML 1 ML VIAL IV PRN (21:07)
[2021-09-03] MEDS ORDERED: ACETAMINOPHEN TAB 325 MG TAB PO PRN (21:07)
[2021-09-03] MEDS: SODIUM CHLORIDE 0.9% 1,000 ML IV SCH (21:35)
[2021-09-04] MEDS: SODIUM CHLORIDE 0.9% 1,000 ML IV SCH ×2 (05:13→21:04)
[2021-09-04] MEDS: APIXABAN 2.5 MG TABLET PO SCH ×2 (08:23→20:34)
[2021-09-04] MEDS: METOPROLOL TARTRATE 25 MG TAB PO SCH ×2 (08:23→20:34)
[2021-09-04] MEDS: PANTOPRAZOLE 40 MG TABLET PO SCH (08:23)
[2021-09-04] MEDS ORDERED: cefTRIAXone IN SWFI 1,000 MG/10 ML SYRINGE IVP SCH (09:00)
[2021-09-04] MEDS: NON FORMULARY DRUG (Omega-3 Acid Ethyl Esters [Lovaza] 1 GM Capsule) PO SCH ×2 (12:04→20:32)
--- NOTE | 2021-09-04 14:53 | CONS ---
CONSULTATION Halle is an 85-year-old lady with history of COPD and atrial fibrillation who currently lives in an assisted-living facility. She is admitted to hospital with urinary tract infection and worsening mental status changes. I have been consulted because of mildly elevated troponin. Patient's troponins were elevated even at her last admission in July. Patient does not have any chest pain. An EKG shows atrial fibrillation with extensive inferolateral ST-T wave changes. Patient denies any chest pain or difficulty in breathing. She appears pleasantly confused. PAST MEDICAL HISTORY: Significant for atrial fibrillation. MEDICATIONS: Medications at home included Lopressor 25 b.i.d., iron, apixaban 2.5 b.i.d. ALLERGIES: As charted. FAMILY HISTORY: Negative for premature coronary artery disease. SOCIAL HISTORY: Negative for current smoking, ETOH abuse or drug abuse. REVIEW OF SYSTEMS: HEENT is unremarkable. CARDIAC: As described above. RESPIRATORY: Negative. GI: Negative. GENITOURINARY: Negative. ALLERGY/IMMUNOLOGY: Negative. SKIN: Negative. MUSCULOSKELETAL: Significant for arthritis. PSYCHOSOCIAL: Significant for confusion. Rest of the system review is not relevant. PHYSICAL EXAMINATION: Afebrile. Heart rate is 70 beats per minute. Blood pressure is 140/72, respiratory rate is 18, O2 saturation is 98% on room air. There is no jugular venous distention. Chest exam reveals good air entry bilaterally. Heart exam reveals first and second heart sounds, irregular rhythm and a systolic murmur at the left lower sternal border. Abdomen is soft. Examination of extremities revealed mild edema. LABS: Are as described above. ASSESSMENT: 1. Elevated troponin; could be related to the renal insufficiency. 2. Permanent atrial fibrillation with controlled ventricular rate. 3. Worsening confusion secondary to urinary tract infection. Continue current medications. MMODL / IJN: [id number] /
[2021-09-04] MEDS: V C FORTE PO SCH (16:01)
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
[2021-09-04] MEDS: FERROUS SULFATE 325 MG TAB PO SCH (20:34)
[2021-09-05] MEDS: SODIUM CHLORIDE 0.9% 1,000 ML IV SCH ×2 (03:59→20:13)
[2021-09-05] MEDS: APIXABAN 2.5 MG TABLET PO SCH ×2 (08:35→20:12)
[2021-09-05] MEDS: PANTOPRAZOLE 40 MG TABLET PO SCH (08:35)
[2021-09-05] MEDS: METOPROLOL TARTRATE 25 MG TAB PO SCH ×2 (08:35→20:12)
[2021-09-05] MEDS: NON FORMULARY DRUG (Omega-3 Acid Ethyl Esters [Lovaza] 1 GM Capsule) PO SCH ×2 (12:31→20:16)
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
--- NOTE | 2021-09-05 14:04 | CA ---
Transthoracic Echo Report Name: Halle Perez Age: 85 Gender: F : 1935 Exam Date: 09/05/2021 09:31 Exam Location: [facility] Ht (in): 65 Wt (lb): 143 Ordering Physician: Juan Miguel Clark MD ([id number]) Attending/Referring Phys: Amber COONEY Preventive Medicine Specialist Janee Malik RDCS Procedure CPT: Indications: afib, elevated trop Cardiac Hx: Technical Quality: Good Contrast 1: Total Dose (mL): Contrast 2: Total Dose (mL): MEASUREMENTS (Male / Female) Normal Values 2D ECHO LV Diastolic Diameter PLAX 4.4 cm 4.2 - 5.9 / 3.9 - 5.3 cm LV Systolic Diameter PLAX 4.0 cm IVS Diastolic Thickness 1.4 cm 0.6 - 1.0 / 0.6 - 0.9 cm LVPW Diastolic Thickness 1.8 cm 0.6 - 1.0 / 0.6 - 0.9 cm LV Relative Wall Thickness 0.7 RV Internal Dim ED PLAX 3.3 cm LA Systolic Diameter LX 4.1 cm 3.0 - 4.0 / 2.7 - 3.8 cm M-MODE Aortic Root Diameter MM 2.8 cm LA Systolic Diameter MM 4.9 cm LA Ao Ratio MM 1.7 MV E Point Septal Separation 0.2 cm AV Cusp Separation MM 1.1 cm DOPPLER AV Peak Velocity 202.6 cm/s AV Peak Gradient 16.4 mmHg AV Mean Velocity 133.0 cm/s AV Mean Gradient 8.2 mmHg AV Velocity Time Integral 37.4 cm LVOT Peak Velocity 59.4 cm/s LVOT Peak Gradient 1.4 mmHg TR Peak Velocity 283.1 cm/s TR Peak Gradient 32.1 mmHg Right Ventricular Systolic Press 36.3 mmHg FINDINGS Left Ventricle Normal Left ventricular size, moderate wall thickness, systolic function with no obvious regional wall motion abnormalities. Left ventricular ejection fraction is estimated at 50-55%. Right Ventricle Normal right ventricular size and function. Mild pulmonary hypertension. Right Atrium Normal right atrial size. Left Atrium Mildly increased left atrial diameter. Mildly increased left atrial area. Mitral Valve Mitral valve thickened. Mitral annular calcification. Mild mitral regurgitation. Aortic Valve Trileaflet aortic valve .mild aortic stenosis with a peak gradient of 16 mmHg and a mean gradient of 8mg Tricuspid Valve Structurally normal tricuspid valve. Mild tricuspid regurgitation. Pulmonic Valve Pulmonic valve not well visualized. Pericardium Normal pericardium. Aorta Normal size aortic root and proximal ascending aorta. CONCLUSIONS Left ventricle hypertrophy with ejection fraction 50% Thickened aortic valve with mild stenosis Previewed by: Dr. Humberto Carpenter MD (Electronically Signed) Final Date: 05 September 2021 14:03
--- NOTE | 2021-09-05 16:21 | P.PN ---
Progress Note - Text Progress Note Date: 09/05/21 Chief Complaint: Altered mental status This is a 85-year-old patient, follows with , /visiting physicians. Chronic stable medical conditions include diabetes, hypertension, hypothyroid, peripheral neuropathy, urinary incontinence. Lives at [facility]. Does have a walker and a cane. Patient herself is not a very good historian. Cannot tell why she is here. Per the EMS and ER report when the EMS arrived they found the patient sitting in her bed pleasantly confused. She was AO 2. She was reported to be lethargic and not been able to take care of herself. Had no change in brief in a few days. Had been refusing her medications. Very strong's follows smelling urine was noted. Patient denied any complaints. Admitted with acute metabolic encephalopathy with acute UTI with cystitis. Started IV fluids, IV ceftriaxone. September 05: Patient doing better today. Oral intake better. More awake. Spoke to patient's son Nael close the deep POA. Patient's course status is DO NOT RESUSCITATE. He is looking to move the patient to full assisted living. Active Medications Acetaminophen (Acetaminophen Tab 325 Mg Tab) 650 mg PO Q6HR PRN PRN Reason: Mild Pain or Fever > 100.5 Apixaban (Apixaban 2.5 Mg Tablet) 2.5 mg PO BID [facility]; Protocol Last Admin: 09/05/21 08:35 Dose: 2.5 mg Ferrous Sulfate (Ferrous Sulfate 325 Mg Tab) 325 mg PO HS [facility] Last Admin: 09/04/21 20:34 Dose: 325 mg Sodium Chloride (Saline 0.9%) 1,000 mls @ 50 mls/hr IV .Q20H [facility] Last Admin: 09/05/21 03:59 Dose: Not Given Ceftriaxone Sodium 1 gm/ (Sodium Chloride) 50 mls @ 100 mls/hr IVPB Q24HR [facility] Last Admin: 09/05/21 08:35 Dose: 100 mls/hr Metoprolol Tartrate (Metoprolol Tartrate 25 Mg Tab) 25 mg PO BID [facility] Last Admin: 09/05/21 08:35 Dose: 25 mg Naloxone HCl (Naloxone 0.4 Mg/Ml 1 Ml Vial) 0.2 mg IV Q2M PRN PRN Reason: Opioid Reversal Non-Formulary Medication (V-C Forte) 1 cap PO W/SUPPER [facility] Last Admin: 09/04/21 16:01 Dose: Not Given Non-Formulary Medication ([place]-3 Acid Ethyl Esters [Lovaza]) 1 gm PO BID@1 200,2100 [facility] Last Admin: 09/05/21 12:31 Dose: Not Given Pantoprazole Sodium (Pantoprazole 40 Mg Tablet) 40 mg PO DAILY [facility] Last Admin: 09/05/21 08:35 Dose: 40 mg Past medical history to include: Diabetes, hypertension, hypothyroid, environmental ALLERGIES, constipation, urinary incontinence, peripheral neuropathy, diverticulosis, aortic stenosis, tricuspid regurgitation, moderate secondary pulmonary hypertension, CK D stage III Social history: Lives of [employer]. Has a walker has not been using it much. smoked for 48 years stopped in 2005. Alcohol rarely. Family history: [place] Physical examination: VITAL SIGNS: 97.8, 59, 18, 140/79, 94% room air GENERAL: Up in bed, more awake comfortable EYES: Pupils equal. Conjunctiva normal. HEENT: External appearance of nose and ears normal, oral cavity grossly normal. NECK: JVD not raised; masses not palpable. HEART: First and second heart sounds are normal; no edema. LUNGS: Respiratory rate normal; clear to auscultation. ABDOMEN: Soft, nontender, liver spleen not palpable, no masses palpable. PSYCH: Able to answer simple questions MUSCULOSKELETAL:No Clubbing/cyanosis;muscles-grossly intact. Evidence of OA. INVESTIGATIONS, reviewed in the clinical context: White count 8.9 hemoglobin 13.2 platelets 248 sodium 144 potassium 3.9 BUN 31 creatinine 1.25 Troponin I 0.095, 0.109 UA positive for nitrite and leukoesterase WBC bacteria Urine drug screen: Negative COVID 19/influenza type A and type B: All negative EKG tracing personally reviewed by me-atrial fibrillation. Rate 79. Some T wave changes. Chest x-ray film personally reviewed by me-possible chronic changes Assessment and plan: - acute metabolic encephalopathy from underlying UTI: Improving -Persistent atrial fibrillation, rate controlled eliquis 2.5 mg twice a day. Lopressor 25 mg twice a day -Moderate aortic stenosis Follow with cardiology -Tricuspid regurgitation Follow clinically -Secondary pulmonary hypertension, moderate Follow clinically -Moderate cognitive impairment, likely from late onset Alzheimer's dementia -Chronic urinary stress incontinence wears diapers -Peripheral neuropathy Follow clinically -Acute UTI with cystitis, from gram-negative bacilli IV ceftriaxone. -Chronic kidney disease stage III from nephrosclerosis Follow renal function -Clinical dehydration IV fluids -Troponin leak in the setting of chronic kidney disease. No active chest pain reported. Doubt ACS. Cardiology consultation -Chronic gait dysfunction uses a walker at baseline Fall precautions IV ceftriaxone. Continue IV fluids. Urine culture pending. Care was discussed length with patient's son Nael at the bedside. Change cor status is DO NOT RESUSCITATE. He is looking for further assistance. Repeat labs tomorrow. Kuldip torrez time spent about 40 minutes with over 25 vessel discussion.
[2021-09-05] MEDS: V C FORTE PO SCH (17:00)
[2021-09-05] MEDS: FERROUS SULFATE 325 MG TAB PO SCH (20:12)
[2021-09-06 07:43] LABS: Basophils # (A) 0.1 k/uL (0-0.2); Basophils % (A) 1 %; Eosinophils # (A) 0.5 k/uL (0-0.7); Eosinophils % (A) 7 %; HCT 40.6 % (34.0-46.0); HGB 12.9 gm/dL (11.4-16.0); Hypochromasia Slight; Lymphocytes # (A) 1.4 k/uL (1.0-4.8); Lymphocytes % (A) 21 %; MCH 30.2 pg (25.0-35.0); MCHC 31.9 g/dL (31.0-37.0); MCV 94.9 fL (80.0-100.0); Mean Platelet Volume 9.3; Monocytes # (A) 0.4 k/uL (0-1.0); Monocytes % (A) 5 %; Neutrophils # (A) 4.5 k/uL (1.3-7.7); Neutrophils % (A) 65 %; Platelet Count 195 k/uL (150-450); RBC 4.28 m/uL (3.80-5.40); RDW 13.4 % (11.5-15.5); WBC 6.9 k/uL (3.8-10.6)
[2021-09-06 08:03] LABS: Calcium 8.6 mg/dL (8.4-10.2); Potassium 3.8 mmol/L (3.5-5.1)
[2021-09-06] MEDS: APIXABAN 2.5 MG TABLET PO SCH ×2 (08:47→19:58)
[2021-09-06] MEDS: METOPROLOL TARTRATE 25 MG TAB PO SCH ×2 (08:47→19:57)
[2021-09-06] MEDS: PANTOPRAZOLE 40 MG TABLET PO SCH (08:47)
[2021-09-06] MEDS: NON FORMULARY DRUG (Omega-3 Acid Ethyl Esters [Lovaza] 1 GM Capsule) PO SCH ×2 (11:07→20:02)
[2021-09-06] MEDS: NITROFURANTOIN MONOHYD/M-CRYST 100 MG CAP PO SCH ×2 (12:32→19:58)
--- NOTE | 2021-09-06 13:18 | P.PN ---
Subjective Progress Note Date: 09/06/21 HISTORY OF PRESENT ILLNESS: Patient examined this morning at the bedside. Patient is pleasantly confused. Patient denies chest pain or pressure. She denies shortness of breath. Te lemetry reveals atrial fibrillation with a heart rate in the 70s. Echocardiogram completed revealing ejection fraction 50-55%. PHYSICAL EXAM: VITAL SIGNS: Reviewed. GENERAL: Well-developed in no acute distress. NECK: Supple. No JVD or thyromegaly LUNGS: Respirations even and unlabored. Lungs essentially clear to auscultation bilaterally. HEART: Irregular rate and rhythm. S1 and S2 heard. Systolic murmur noted. EXTREMITIES: Normal range of motion. No clubbing or cyanosis. Peripheral pulses intact. No lower extremity edema ASSESSMENT: Altered mental status Urinary tract infection Permanent atrial fibrillation, on Eliquis Acute kidney injury Abnormal troponins, likely secondary to MATTHEW and UTI PLAN: Continue current cardiac medications Patient is stable from a cardiac standpoint We will sign off. Please reconsult if needed Nurse practitioner note has been reviewed by physician. Signing provider agrees with the documented findings, assessment, and plan of care. Objective - Vital Signs Vital signs: Vital Signs Temp 97.4 F L 09/06/21 12:00 Pulse 52 L 09/06/21 12:00 Resp 16 09/06/21 12:00 BP 138/88 09/06/21 12:00 Pulse Ox 96 09/06/21 12:00 FiO2 Intake & Output 09/05/21 09/06/21 09/06/21 18:59 06:59 18:59 Intake Total 576 Output Total 300 300 Balance 276 -300 Intake: Oral 576 Output: Urine 300 300 Other: Voiding Method Diaper Diaper Diaper External Catheter External Catheter External Catheter # Voids 1 - Labs CBC & Chem 7: 09/06/21 06:49 09/06/21 06:49 Labs: Abnormal Lab Results - Last 24 Hours (Table) 09/06/21 Range/Units 06:49 Chloride 111 H (98-107) mmol/L Microbiology - Last 24 Hours (Table) 09/03/21 20:20 Urine Culture - Final Urine,Voided Citrobacter farmeri 09/03/21 21:05 Blood Culture - Preliminary Blood No Growth after 48 hours 09/03/21 20:50 Blood Culture - Preliminary Blood No Growth after 48 hours
--- NOTE | 2021-09-06 13:45 | P.PN ---
Progress Note - Text Progress Note Date: 09/06/21 Chief Complaint: Altered mental status This is a 85-year-old patient, follows with , /visiting physicians. Chronic stable medical conditions include diabetes, hypertension, hypothyroid, peripheral neuropathy, urinary incontinence. Lives at [facility]. Does have a walker and a cane. Patient herself is not a very good historian. Cannot tell why she is here. Per the EMS and ER report when the EMS arrived they found the patient sitting in her bed pleasantly confused. She was AO 2. She was reported to be lethargic and not been able to take care of herself. Had no change in brief in a few days. Had been refusing her medications. Very strong's follows smelling urine was noted. Patient denied any complaints. Admitted with acute metabolic encephalopathy with acute UTI with cystitis. Started IV fluids, IV ceftriaxone. September 05: Patient doing better today. Oral intake better. More awake. Spoke to patient's son Nael close the deep POA. Patient's course status is DO NOT RESUSCITATE. He is looking to move the patient to full assisted living. September 06: Patient is a bit weak. Sitting up in a recliner. Oral intake fair. Looking at rehab. Spoke to the son at length. Urine culture noted.antibiotic been changed to nitrofurantoin. Active Medications Acetaminophen (Acetaminophen Tab 325 Mg Tab) 650 mg PO Q6HR PRN PRN Reason: Mild Pain or Fever > 100.5 Apixaban (Apixaban 2.5 Mg Tablet) 2.5 mg PO BID [facility]; Protocol Last Admin: 09/06/21 08:47 Dose: 2.5 mg Ferrous Sulfate (Ferrous Sulfate 325 Mg Tab) 325 mg PO HS [facility] Last Admin: 09/05/21 20:12 Dose: 325 mg Metoprolol Tartrate (Metoprolol Tartrate 25 Mg Tab) 25 mg PO BID [facility] Last Admin: 09/06/21 08:47 Dose: 25 mg Naloxone HCl (Naloxone 0.4 Mg/Ml 1 Ml Vial) 0.2 mg IV Q2M PRN PRN Reason: Opioid Reversal Nitrofurantoin Macrocrystals (Nitrofurantoin Monohyd/M-Cryst 100 Mg Cap) 100 mg PO BID [facility]; Protocol Last Admin: 09/06/21 12:32 Dose: 100 mg Non-Formulary Medication (V-C Forte) 1 cap PO W/SUPPER [facility] Last Admin: 09/05/21 17:00 Dose: Not Given Non-Formulary Medication ([place]-3 Acid Ethyl Esters [Lovaza]) 1 gm PO BID@1200,2100 [facility] Last Admin: 09/06/21 11:07 Dose: Not Given Pantoprazole Sodium (Pantoprazole 40 Mg Tablet) 40 mg PO DAILY [facility] Last Admin: 09/06/21 08:47 Dose: 40 mg Past medical history to include: Diabetes, hypertension, hypothyroid, environmental ALLERGIES, constipation, urinary incontinence, peripheral neuropathy, diverticulosis, aortic stenosis, tricuspid regurgitation, moderate secondary pulmonary hypertension, CK D stage III Social history: Lives of [employer]. Has a walker has not been using it much. smoked for 48 years stopped in 2005. Alcohol rarely. Family history: [place] Physical examination: VITAL SIGNS: 87.4, 52, 16, 130/88, 96% room air GENERAL: Up in chair,, awake comfortable EYES: Pupils equal. Conjunctiva normal. HEENT: External appearance of nose and ears normal, oral cavity grossly normal. NECK: JVD not raised; masses not palpable. HEART: First and second heart sounds are normal; no edema. LUNGS: Respiratory rate normal; clear to auscultation. ABDOMEN: Soft, nontender, liver spleen not palpable, no masses palpable. PSYCH: Able to answer simple questions MUSCULOSKELETAL:No Clubbing/cyanosis;muscles-grossly intact. Evidence of OA. INVESTIGATIONS, reviewed in the clinical context: September 06: White count 6.9 hemoglobin 12.9 potassium 3.8 at 0.81 Urine culture: Citrobacter farmeri White count 8.9 hemoglobin 13.2 platelets 248 sodium 144 potassium 3.9 BUN 31 creatinine 1.25 Troponin I 0.095, 0.109 UA positive for nitrite and leukoesterase WBC bacteria Urine drug screen: Negative COVID 19/influenza type A and type B: All negative EKG tracing personally reviewed by me-atrial fibrillation. Rate 79. Some T wave changes. Chest x-ray film personally reviewed by me-possible chronic changes Assessment and plan: - acute metabolic encephalopathy from underlying UTI: Better -Persistent atrial fibrillation, rate controlled eliquis 2.5 mg twice a day. Lopressor 25 mg twice a day -Moderate aortic stenosis Follow with cardiology -Tricuspid regurgitation Follow clinically -Secondary pulmonary hypertension, moderate Follow clinically -Moderate cognitive impairment, likely from late onset Alzheimer's dementia -Chronic urinary stress incontinence wears diapers -Peripheral neuropathy Follow clinically -Acute UTI with cystitis, from Citrobacter farmeri Nitrofurantoin -Patient does not have Chronic kidney disease -Acute kidney injury likely combination of ATN and prerenal.: Corrected IV fluids -Troponin leak in the setting of chronic kidney disease. No active chest pain reported. Doubt ACS. Cardiology consultation -Chronic gait dysfunction uses a walker at baseline Fall precautions -DO NOT RESUSCITATE -Nael patient's son is the POA DC IV ceftriaxone. Start nitrofurantoin. Patient does not have CK D. Looking at rehab placement. Case management involved. Spoke at length with patient's son at the bedside. DC IV fluids. Time spent about 40 minutes with over 25 minutes of discussion.
[2021-09-06] MEDS: V C FORTE PO SCH (17:56)
[2021-09-06] MEDS: FERROUS SULFATE 325 MG TAB PO SCH (19:58)
[2021-09-07] MEDS: APIXABAN 2.5 MG TABLET PO SCH (07:45)
[2021-09-07] MEDS: PANTOPRAZOLE 40 MG TABLET PO SCH (07:46)
[2021-09-07] MEDS: METOPROLOL TARTRATE 25 MG TAB PO SCH (07:46)
[2021-09-07] MEDS: NITROFURANTOIN MONOHYD/M-CRYST 100 MG CAP PO SCH (07:46)
[2021-09-07 07:53] VITALS: BP 88/47; PULSE 62; RESP 18; TEMP 98.4
[2021-09-07] MEDS: V C FORTE PO SCH (11:18)
[2021-09-07] MEDS: NON FORMULARY DRUG (Omega-3 Acid Ethyl Esters [Lovaza] 1 GM Capsule) PO SCH (11:18)
--- NOTE | 2021-09-07 13:17 | P.DS ---
Providers Date of admission: 09/03/21 21:07 Expected date of discharge: 09/07/21 Attending physician: Isidro Ceballos Primary care physician: Francisco Hall MD Hospital Course: Chief Complaint: Altered mental status This is a 85-year-old patient, follows with , /visiting physicians. Chronic stable medical conditions include diabetes, hypertension, hypothyroid, peripheral neuropathy, urinary incontinence. Lives at [facility]. Does have a walker and a cane. Patient herself is not a very good historian. Cannot tell why she is here. Per the EMS and ER report when the EMS arrived they found the patient sitting in her bed pleasantly confused. She was AO 2. She was reported to be lethargic and not been able to take care of herself. Had no change in brief in a few days. Had been refusing her medications. Very strong's follows smelling urine was noted. Patient denied any complaints. Admitted with acute metabolic encephalopathy with acute UTI with cystitis. Started IV fluids, IV ceftriaxone. September 05: Patient doing better today. Oral intake better. More awake. Spoke to patient's son Nael close the deep POA. Patient's course status is DO NOT RESUSCITATE. He is looking to move the patient to full assisted living. September 06: Patient is a bit weak. Sitting up in a recliner. Oral intake fair. Looking at rehab. Spoke to the son at length. Urine culture noted.antibiotic b een changed to nitrofurantoin. September 07: Comfortable. No new issues. On nitrofurantoin. Accepted at rehab. Oral intake fair. Past medical history to include: Diabetes, hypertension, hypothyroid, environmental ALLERGIES, constipation, urinary incontinence, peripheral neuropathy, diverticulosis, aortic stenosis, tricuspid regurgitation, moderate secondary pulmonary hypertension, CK D stage III Social history: Lives of [facility]. Has a walker has not been using it much. smoked for 48 years stopped in 2005. Alcohol rarely. Family history: OR Physical examination: VITAL SIGNS: 98.4, 62, 18, 107 with 67, 92% room air GENERAL: In bed, sleepy EYES: Pupils equal. Conjunctiva normal. HEENT: External appearance of nose and ears normal, oral cavity grossly normal. NECK: JVD not raised; masses not palpable. HEART: First and second heart sounds are normal; no edema. LUNGS: Respiratory rate normal; clear to auscultation. ABDOMEN: Soft, nontender, liver spleen not palpable, no masses palpable. PSYCH: Able to answer simple questions MUSCULOSKELETAL:No Clubbing/cyanosis;muscles-grossly intact. Evidence of OA. INVESTIGATIONS, reviewed in the clinical context: September 06: White count 6.9 hemoglobin 12.9 potassium 3.8 at 0.81 Urine culture: Citrobacter farmeri White count 8.9 hemoglobin 13.2 platelets 248 sodium 144 potassium 3.9 BUN 31 creatinine 1.25 Troponin I 0.095, 0.109 UA positive for nitrite and leukoesterase WBC bacteria Urine drug screen: Negative COVID 19/influenza type A and type B: All negative EKG tracing personally reviewed by me-atrial fibrillation. Rate 79. Some T wave changes. Chest x-ray film personally reviewed by me-possible chronic changes Assessment and plan: - acute metabolic encephalopathy from underlying UTI: Better -Persistent atrial fibrillation, rate controlled eliquis 2.5 mg twice a day. Lopressor 25 mg twice a day -Moderate aortic stenosis Follow with cardiology -Tricuspid regurgitation Follow clinically -Secondary pulmonary hypertension, moderate Follow clinically -Moderate cognitive impairment, likely from late onset Alzheimer's dementia -Chronic urinary stress incontinence wears diapers -Peripheral neuropathy Follow clinically -Acute UTI with cystitis, from Citrobacter farmeri Nitrofurantoin 100 mg twice a day for 5 days -Patient does not have Chronic kidney disease -Acute kidney injury likely combination of ATN and prerenal.: Corrected IV fluids -Troponin leak in the setting of chronic kidney disease. No active chest pain reported. Doubt ACS. Cardiology consultation -Chronic gait dysfunction uses a walker at baseline Fall precautions -DO NOT RESUSCITATE -Nael maaya's son is the POA Disposition: ECF/[facility]. Patient Condition at Discharge: Fair Plan - Discharge Summary Discharge Rx Participant: No New Discharge Prescriptions: New Nitrofurantoin Monohyd/M-Cryst [Macrobid] 100 mg PO BID #10 cap Continue Omeprazole [PriLOSEC] 40 mg PO DAILY Metoprolol Tartrate [Lopressor] 25 mg PO BID tab [place]-3 Acid Ethyl Esters [Lovaza] 1 gm PO BID@1200,2100 Apixaban [Eliquis] 2.5 mg PO BID V-C Forte 1 cap PO W/SUPPER Ferrous Sulfate [Iron (65 MG Elemental)] 325 mg PO HS Discharge Medication List Omeprazole [PriLOSEC] 40 mg PO DAILY 09/30/17 [History] Metoprolol Tartrate [Lopressor] 25 mg PO BID tab 10/15/17 [Rx] [place]-3 Acid Ethyl Esters [Lovaza] 1 gm PO BID@1200,2100 03/29/18 [History] Apixaban [Eliquis] 2.5 mg PO BID 11/14/19 [History] V-C Forte 1 cap PO W/SUPPER 11/14/19 [History] Ferrous Sulfate [Iron (65 MG Elemental)] 325 mg PO HS 01/10/21 [History] Nitrofurantoin Monohyd/M-Cryst [Macrobid] 100 mg PO BID #10 cap 09/07/21 [Rx] Follow up Appointment(s)/Referral(s): Francisco Hall MD [Primary Care Provider] - 1-2 days
== END 2021-09-07 16:40 | disposition home health service (06) | DRG 689 ==
LOC: EC 19:26 → 3SCARD 21:07
PROVIDERS: ADMIT Hospitalist; ATTEND Hospitalist
DX: N30.90 Cystitis, unspecified without hematuria (principal); G93.41 Metabolic encephalopathy; N17.0 Acute kidney failure with tubular necrosis; F05 Delirium due to known physiological condition; I48.21 Permanent atrial fibrillation; R41.82 Altered mental status, unspecified; E03.9 Hypothyroidism, unspecified; N18.30 Chronic kidney disease, stage 3 unspecified; E11.22 Type 2 diabetes mellitus with diabetic chronic kidney disease; E11.42 Type 2 diabetes mellitus with diabetic polyneuropathy; E86.0 Dehydration; F02.80 Dementia in other diseases classified elsewhere, unspecified severity, without behavioral disturbance, psychotic disturbance, mood disturbance, and anxiety; F32.A Depression, unspecified; G30.1 Alzheimer's disease with late onset; I08.2 Rheumatic disorders of both aortic and tricuspid valves; I12.9 Hypertensive chronic kidney disease with stage 1 through stage 4 chronic kidney disease, or unspecified chronic kidney disease; I27.29 Other secondary pulmonary hypertension; J44.9 Chronic obstructive pulmonary disease, unspecified; K57.90 Diverticulosis of intestine, part unspecified, without perforation or abscess without bleeding; K59.00 Constipation, unspecified; N39.3 Stress incontinence (female) (male); Z66 Do not resuscitate; Z79.01 Long term (current) use of anticoagulants; Z79.899 Other long term (current) drug therapy; Z82.49 Family history of ischemic heart disease and other diseases of the circulatory system; Z87.440 Personal history of urinary (tract) infections; Z87.891 Personal history of nicotine dependence; Z95.0 Presence of cardiac pacemaker; R26.9 Unspecified abnormalities of gait and mobility; R77.8 Other specified abnormalities of plasma proteins; Z88.2 Allergy status to sulfonamides
CPT/HCPCS: 36415; 51701; 71046; 80048; 80053; 80306; 81001; 82140; 84484; 85025; 85610; 85730; 87040; 87077; 87086; 87186; 87502; 87635; 93005; 93306; 96374; 99285